=== PATIENT | female | born 1950 | race Hispanic/Latino ===

== ENCOUNTER 2017-03-05 21:47 | Emergency (ER) | payer MEDICARE, BC ==
[2017-03-05 21:48] VITALS: BMI 34.9
[2017-03-05 21:54] VITALS: RESP 20; TEMP 98.3; O2SAT 96
--- NOTE | 2017-03-05 23:05 | C.PDOC ---
History Of Present Illness 67 year old female presents to the ED with complaints of a skin rash appearing today on her legs, arms, and face. Patient states she began Bactrim and denies taking any other new medications, allergens, or exposure to the sun or heat. She states she has taken Bactrim in the past and had no adverse effects. Patient denies any lip swelling , chest tightness or shortness of breath. Took benadryl at home twice today Time Seen by Provider: 03/05/17 22:27 Chief Complaint (Nursing): Abnormal Skin Integrity History Per: Patient History/Exam Limitations: no limitations Onset/Duration Of Symptoms: Hrs Current Symptoms Are (Timing): Still Present Quality Of Symptoms: denies: Painful, Swollen, Draining Recent travel outside of the [place]: No Past Medical History Reviewed: Historical Data, Nursing Documentation, Vital Signs Vital Signs: Last Vital Signs Temp 98.3 F 03/05/17 21:50 Pulse 74 03/05/17 23:06 Resp 20 03/05/17 23:06 BP 124/77 03/05/17 23:06 Pulse Ox 96 03/06/17 06:20 - Medical History PMH: Asthma, COPD, HTN, Hypercholesterolemia, Seizures (LAST SEIZURE 2011) Surgical History: Appendectomy (5 YRS. OLD) - [facility] Procedures CLOSED ENDOSCOPIC BIOPSY OF LARGE INTESTINE (07/31/14) Family History: States: Unknown Family Hx - Social History Hx Tobacco Use: No Hx Alcohol Use: No Hx Substance Use: No - Immunization History Hx Tetanus Toxoid Vaccination: No Hx Influenza Vaccination: No Hx Pneumococcal Vaccination: No Review Of Systems Constitutional: Negative for: Fever, Chills, Sweats Cardiovascular: Negative for: Chest Pain, Palpitations Respiratory: Negative for: Cough, Shortness of Breath Gastrointestinal: Negative for: Nausea, Vomiting, Abdominal Pain, Diarrhea Skin: Positive for: Rash (skin rash to arms, legs, and face ) Physical Exam - Physical Exam Appears: Non-toxic, No Acute Distress Skin: Warm, Dry, No Ecchymosis, Other (Macular erythematus to bilateral lower legs, arms, back, and face. No vesicular lesions. ) Head: Atraumatic Eye(s): bilateral: PERRL, EOMI Oral Mucosa: Moist Tongue: Normal Appearing, No Swelling Lips: Normal Appearing, No Swelling Throat: Normal, No Erythema, No Exudate Neck: Supple Chest: Symmetrical, No Deformity Cardiovascular: Rhythm Regular Respiratory: No Rales, No Rhonchi, No Stridor, No Wheezing Extremity: Normal ROM, No Tenderness Neurological/Psych: Oriented x3 ED Course And Treatment O2 Sat by Pulse Oximetry: 96 (room air ) Progress Note: Patient was given prednisone . Advised to continue with medications at home as instructed and to D/C Bactrim DS. Due to pt's multiple med allergies, pt will call Dr Hernandez on tuesday to prescribe antibiotic for UTI . Disposition Counseled Patient/Family Regarding: Diagnosis, Need For Followup, Rx Given - Disposition Referrals: Shelly Hernandez MD [Staff Provider] - Disposition: HOME/ ROUTINE Disposition Time: 23:03 Condition: STABLE Additional Instructions: Please follow up with PMD D/C BACTRIM Continue benadryl PO as directed Call Dr Hernandez to replace antibiotic as needed Return to ER immediately or call 911 if lip swelling, difficulty breathing, or worse Prescriptions: predniSONE [Prednisone] 40 mg PO DAILY #8 tab Instructions: Antibiotic Medication Allergy (ED) - Clinical Impression Clinical Impression: Medication reaction - Scribe Statement The provider has reviewed the documentation as recorded by the Scribe Claudette Gregory All medical record entries made by the Scribe were at my direction and personally dictated by me. I have reviewed the chart and agree that the record accurately reflects my personal performance of the history, physical exam, medical decision making, and the department course for this patient. I have also personally directed, reviewed, and agree with the discharge instructions and disposition.
[2017-03-05 23:07] VITALS: BP 124/77; PULSE 74
== END 2017-03-05 23:14 | disposition home or self-care (01) ==
LOC: C.ER 21:47
DX: L27.0 Generalized skin eruption due to drugs and medicaments taken internally (principal); T37.0X5A Adverse effect of sulfonamides, initial encounter

== ENCOUNTER 2017-04-07 19:45 | Inpatient (IN) | payer MEDICARE, BC ==
[2017-04-07 19:46] VITALS: BMI 34.9
[2017-04-07 20:52] LABS: ALBUMIN 3.9 g/dL (3.5-5.0)
[2017-04-07 20:54] LABS: BASO # 0.1 K/uL (0.0-0.2); EOS # 0.2 K/uL (0.0-0.7); EOS % 3.5 % (0.0-4.0); HEMOGLOBIN 12.3 g/dL (11.0-16.0); LYMPH # 1.7 K/uL (1.0-4.3); LYMPH % 25.6 % (20.0-40.0); MEAN CORPUSCULAR HEMOGLOBIN 27.2 pg (27.0-31.0); MEAN CORPUSCULAR HGB CONC 33.2 g/dL (33.0-37.0); MONO # 1.1 K/uL (0.0-0.8); MONO % 16.4 % (0.0-10.0); NEUT # 3.5 K/uL (1.8-7.0); NEUT % 53.5 % (50.0-75.0); RBC 4.52 Mil/uL (3.80-5.20); RED CELL DISTRIBUTION WIDTH 14.5 % (11.5-14.5); WHITE BLOOD COUNT 6.5 K/uL (4.8-10.8)
[2017-04-07 20:55] LABS: ALB/GLOB RATIO 1.3 (1.0-2.1); ALT/SGPT 25 U/L (9-52); AST/SGOT 36 U/L (14-36); BLOOD UREA NITROGEN 14 mg/dL (7-17); GFR AFRICAN-AMERICAN > 60; GFR NON-AFRICAN AMERICAN > 60
[2017-04-07 20:56] LABS: CALCIUM 9.7 mg/dl (8.6-10.4); LIPASE 86 U/L (23-300)
--- NOTE | 2017-04-07 21:21 | C.PDOC ---
History Of Present Illness 67 y/o female presents to ED for evaluation of LLQ abdominal pain for the last few days. Notes being seen by PMD and was prescribed carafate which gave no relief of symptoms. Otherwise, denies any fever, or any other complaints at this time. Time Seen by Provider: 04/07/17 20:44 Chief Complaint (Nursing): Abdominal Pain History Per: Patient History/Exam Limitations: no limitations Onset/Duration Of Symptoms: Days Current Symptoms Are (Timing): Still Present Location Of Pain/Discomfort: LLQ Radiation Of Pain To:: None Quality Of Discomfort: "Pain" Associated Symptoms: denies: Fever, Chills, Nausea, Vomiting, Diarrhea, Loss Of Appetite, Back Pain, Chest Pain, Constipation, Urinary Symptoms Exacerbating Factors: None Alleviating Factors: None Recent travel outside of the [place]: No Additional History Per: Patient Abnormal Vaginal Bleeding: No Past Medical History Reviewed: Historical Data, Nursing Documentation, Vital Signs Vital Signs: Last Vital Signs Temp 97.6 F 04/08/17 00:10 Pulse 68 04/08/17 00:10 Resp 18 04/08/17 00:10 BP 128/90 04/08/17 00:10 Pulse Ox 95 04/08/17 00:16 - Medical History PMH: Asthma, COPD, HTN, Hypercholesterolemia, Seizures (LAST SEIZURE 2011) Denies: Chronic Kidney Disease Surgical History: Appendectomy (5 YRS. OLD) - [facility] Procedures CLOSED ENDOSCOPIC BIOPSY OF LARGE INTESTINE (07/31/14) Family History: States: Unknown Family Hx - Social History Hx Tobacco Use: No Hx Alcohol Use: No Hx Substance Use: No - Immunization History Hx Tetanus Toxoid Vaccination: No Hx Influenza Vaccination: No Hx Pneumococcal Vaccination: No Review Of Systems Except As Marked, All Systems Reviewed And Found Negative. Constitutional: Negative for: Fever, Chills Gastrointestinal: Positive for: Abdominal Pain (LLQ). Negative for: Nausea, Vomiting, Diarrhea Genitourinary: Negative for: Dysuria, Frequency, Hematuria Musculoskeletal: Negative for: Back Pain Physical Exam - Physical Exam Appears: Non-toxic, No Acute Distress, Other (obese) Skin: Normal Color, Warm, Dry Head: Atraumatic, Normacephalic Eye(s): bilateral: Normal Inspection, EOMI Neck: Normal ROM, Supple Chest: Symmetrical, No Tenderness Cardiovascular: Rhythm Regular, No Murmur Respiratory: Normal Breath Sounds, No Rales, No Rhonchi, No Wheezing Gastrointestinal/Abdominal: Soft, Tenderness (LLQ), No Guarding, No Rebound Rectal: Normal Exam, Heme Negative Pelvic: Normal External Exam, Normal Speculum Exam, No Vaginal Bleeding, No Vaginal Discharge, No Cervical Motion Tenderness, No Adnexal Tenderness Extremity: Normal ROM, No Deformity Neurological/Psych: Oriented x3, Normal Speech, Normal Cognition ED Course And Treatment - Laboratory Results Result Diagrams: 04/07/17 20:39 04/07/17 20:39 O2 Sat by Pulse Oximetry: 95 (on RA) Pulse Ox Interpretation: Normal - CT Scan/US CT abd/pel Other Rad Studies (CT/US): Read By Radiologist, Radiology Report Reviewed CT/US Interpretation: EXAM: CT Abdomen and Pelvis Without Intravenous Contrast. CLINICAL HISTORY: 67 years old, female; Pain; Abdominal pain; Localized; Left lower quadrant (llq); Prior surgery;. Surgery date: 6+ months; Surgery type: Appendix/partial hysterectomy; Additional info: Llq pain and. anal pain. TECHNIQUE: Axial computed tomography images of the abdomen and pelvis without intravenous contrast. This. CT exam was performed using one or more of the following dose reduction techniques: automated. exposure control, adjustment of the mA and/or kV according to patient size, and/or use of iterative. reconstruction technique. Coronal and sagittal reformatted images were created and reviewed. COMPARISON: Prior CT 07/19/2014. FINDINGS: Partial visualization of approximately 2 mm nodule in the right lower lobe visualized on the 1st image. on this study. Additional 2 mm nodule in the right lower lobe on image 2. Atelectasis/scarring. Evidence of air trapping at lung bases. Again noted is a low density lesion in the right lobe of the liver measuring approximately 7 cm in. maximal dimension. Additional subcentimeter low-attenuation lesion noted inferior to this. Gallstone in the gallbladder. Evidence of subcentimeter hypoattenuating nodule in the left adrenal gland. The spleen, pancreas and right adrenal gland demonstrate no acute abnormalities. The kidneys are symmetric with no evidence of hydronephrosis. Please note evaluation for underlying visceral lesions/abnormalities limited without intravenous. contrast. The aorta is normal in caliber. Evaluation of bowel limited without enteric contrast, particularly for bowel inflammation or underlying. lesion. No bowel obstruction. Colonic diverticula. No ascites. No free air. Degenerative changes, most notable at L5-S1. IMPRESSION: Colonic diverticula. Evaluation of bowel limited without enteric contrast. Question slight increased. mesenteric markings adjacent to colonic diverticulum in the rectosigmoid region, axial image 66,. cannot exclude mild diverticulitis. Partial visualization of approximately 2 mm nodule in the right lower lobe visualized on the 1st image. on this study. Additional 2 mm nodule in the right lower lobe on image 2. Again noted is a low density lesion in the right lobe of the liver measuring approximately 7 cm in. maximal dimension, 2015 study not available for comparison at time of report. Additional. subcentimeter low-attenuation lesion noted inferior to this, unchanged from 2014. Please correlate. with prior imaging diagnosis. Prior reports have recommended followup MRI/ultrasound. Gallstone in the gallbladder without CT evidence of acute cholecystitis. Evidence of subcentimeter hypoattenuating nodule in the left adrenal gland, unchanged from prior. study in 2014. Please see additional details/findings as above. Correlate clinically. Followup as warranted. Progress Note: Labs, abd & pelvis CT ordered and reviewed. Medical Decision Making Medical Decision Making: abd pain r/o diverticulitis, gastritis, colitis 1112: pt initally comfortable with dc. updated dr duncan for outpt f/u. upon reassessment., pt reports persistnet nausea, abdominal discomfort. also pt with multiple drug allergies, will need iv antibiotics, as allergies to quinolones and bactrim, pcn, flagyl. . case discussed with hospitalist. accepts for admission. Disposition - Disposition Disposition: HOSPITALIZED Disposition Time: 23:13 Condition: STABLE - Clinical Impression Clinical Impression: Diverticulitis - Scribe Statement The provider has reviewed the documentation as recorded by the Tracey Hernandez All medical record entries made by the Tracey were at my direction and personally dictated by me. I have reviewed the chart and agree that the record accurately reflects my personal performance of the history, physical exam, medical decision making, and the department course for this patient. I have also personally directed, reviewed, and agree with the discharge instructions and disposition. Decision To Admit - Pt Status Changed To: Hospital Disposition Of: Inpatient - Admit Certification Admit to Inpatient:: After my assessment, the patient will require hospitalization for at least two midnights. This is because of the severity of symptoms shown, intensity of services needed, and/or the medical risk in this patient being treated as an outpatient. - InPatient: Physician Admission Certification:: multiple drug allergies, needs iv antibitoics, as not sensitive to po antibiotics - . Bed Request Type: Regular Admitting Physician: Jimmie Brush Patient Diagnosis: Diverticulitis
--- NOTE | 2017-04-07 22:29 | CT ---
EXAM: CT Abdomen and Pelvis Without Intravenous Contrast CLINICAL HISTORY: 67 years old, female; Pain; Abdominal pain; Localized; Left lower quadrant (llq); Prior surgery; Surgery date: 6+ months; Surgery type: Appendix/partial hysterectomy; Additional info: Llq pain and anal pain TECHNIQUE: Axial computed tomography images of the abdomen and pelvis without intravenous contrast. This CT exam was performed using one or more of the following dose reduction techniques: automated exposure control, adjustment of the mA and/or kV according to patient size, and/or use of iterative reconstruction technique. Coronal and sagittal reformatted images were created and reviewed. COMPARISON: Prior CT 07/19/2014. FINDINGS: Partial visualization of approximately 2 mm nodule in the right lower lobe visualized on the 1st image on this study. Additional 2 mm nodule in the right lower lobe on image 2. Atelectasis/scarring. Evidence of air trapping at lung bases. Again noted is a low density lesion in the right lobe of the liver measuring approximately 7 cm in maximal dimension. Additional subcentimeter low-attenuation lesion noted inferior to this. Gallstone in the gallbladder. Evidence of subcentimeter hypoattenuating nodule in the left adrenal gland. The spleen, pancreas and right adrenal gland demonstrate no acute abnormalities. The kidneys are symmetric with no evidence of hydronephrosis. Please note evaluation for underlying visceral lesions/abnormalities limited without intravenous contrast. The aorta is normal in caliber. Evaluation of bowel limited without enteric contrast, particularly for bowel inflammation or underlying lesion. No bowel obstruction. Colonic diverticula. No ascites. No free air. Degenerative changes, most notable at L5-S1. IMPRESSION: Colonic diverticula. Evaluation of bowel limited without enteric contrast. Question slight increased mesenteric markings adjacent to colonic diverticulum in the rectosigmoid region, axial image 66, cannot exclude mild diverticulitis. Partial visualization of approximately 2 mm nodule in the right lower lobe visualized on the 1st image on this study. Additional 2 mm nodule in the right lower lobe on image 2. Again noted is a low density lesion in the right lobe of the liver measuring approximately 7 cm in maximal dimension, 2015 study not available for comparison at time of report. Additional subcentimeter low-attenuation lesion noted inferior to this, unchanged from 2013. Please correlate with prior imaging diagnosis. Prior reports have recommended followup MRI/ultrasound. Gallstone in the gallbladder without CT evidence of acute cholecystitis. Evidence of subcentimeter hypoattenuating nodule in the left adrenal gland, unchanged from prior study in 2014. Please see additional details/findings as above. Correlate clinically. Followup as warranted.
[2017-04-07] MEDS ORDERED: Clindamycin 600mg/50ml D5W 600 MG/50 ML VIAL IVPB ONE ×2 (23:00→23:06)
[2017-04-07] MEDS ORDERED: Aztreonam 2 GM in Sodium Chloride 0.9% 100 ML IVPB STA (23:08)
--- NOTE | 2017-04-07 23:21 | CP.PCM.HP ---
<Sobeida Gibbons - Last Filed: 04/08/17 03:28> History of Present Illness - History of Present Illness History of Present Illness: Medicine Note CC: abdominal pain HPI: 67 F with PMHx of HTN, Hypothyroidism, Seizure Disorder, HLD, COPD, GERD, and Hemangioma who presents to the ED with abdominal pain x 3 days. Patient reports the pain is localized to LLQ and does not radiate. She started to have diarrhea and abdominal pain after eating. She saw Dr. Loza in his office for these symptoms and he gave her carafate which did not relieve these symptoms. She also admitted to dysuria and suprapubic tenderness. Denied any associated fever, chills, chest pain, SOB, or n/v/c. PMHx: HTN, Hypothyroidism, HLD, Seizure Disorder, COPD, GERD, Hemangioma PSHx: Hysterectomy, implanted lens in both eyes Meds: As per DEC All: As noted above SHx: Stopped smoking 30 years ago, denied any alcohol or illicit drug use FHx: Unremarkble PMD: Dr. Hernandez GI: Dago Present on Admission - Present on Admission Any Indicators Present on Admission: No Review of Systems - Constitutional Constitutional: absent: Fever, Headache, Weakness - EENT Eyes: absent: Change in Vision, Loss of Vision Ears: absent: Tinnitus Nose/Mouth/Throat: absent: Dysphagia - Breasts Breasts: absent: Pain - Cardiovascular Cardiovascular: absent: Chest Pain, Chest Pain at Rest - Respiratory Respiratory: absent: Cough, Dyspnea - Gastrointestinal Gastrointestinal: Abdominal Pain, Diarrhea. absent: Nausea, Vomiting - Genitourinary Genitourinary: Dysuria. absent: Hematuria - Musculoskeletal Musculoskeletal: absent: Back Pain - Integumentary Integumentary: absent: Wounds - Neurological Neurological: absent: Syncope, Vertigo, Weakness - Psychiatric Psychiatric: absent: Anxiety - Hematologic/Lymphatic Hematologic: absent: Easy Bleeding, Easy Bruising Past Patient History - Infectious Disease Hx of Infectious Diseases: None - Past Medical History & Family History Past Medical History?: Yes - Past Social History Smoking Status: Former Smoker - CARDIAC Hx Hypercholesterolemia: Yes Hx Hypertension: Yes - PULMONARY Hx Asthma: Yes Hx Chronic Obstructive Pulmonary Disease (COPD): Yes - NEUROLOGICAL Hx Seizures: Yes (LAST SEIZURE 2011) - HEENT Hx HEENT Problems: No Other/Comment: implanted LENS to both eyes - RENAL Hx Chronic Kidney Disease: No - ENDOCRINE/METABOLIC Hx Endocrine Disorders: No - HEMATOLOGICAL/ONCOLOGICAL Hx Blood Disorders: No Other/Comment: mass to right side of liver - INTEGUMENTARY Hx Dermatological Problems: No - MUSCULOSKELETAL/RHEUMATOLOGICAL Hx Musculoskeletal Disorders: Yes - GASTROINTESTINAL Hx Gastrointestinal Disorders: Yes Hx Fatty Liver Disease: Yes ( RIGHT LOBE LIVER HEMANGIOMA) Hx Gastroesophageal Reflux: Yes Other/Comment: hepatic hemangioma right lobe - GENITOURINARY/GYNECOLOGICAL Hx Genitourinary Disorders: No - PSYCHIATRIC Hx Substance Use: No - SURGICAL HISTORY Hx Appendectomy: Yes (3 YRS. OLD) - ANESTHESIA Hx Anesthesia: Yes Hx Anesthesia Reactions: No Hx Malignant Hyperthermia: No Meds Allergies/Adverse Reactions: Allergies Allergy/AdvReac Type Severity Reaction Status Date / Time amoxicillin [From Augmentin] Allergy Verified 04/07/17 20:36 ciprofloxacin [From Cipro] Allergy Verified 04/07/17 20:36 clavulanic acid Allergy Verified 04/07/17 20:36 [From Augmentin] iodine Allergy Verified 04/07/17 20:36 levofloxacin [From Levaquin] Allergy Verified 04/07/17 20:36 metronidazole [From Flagyl] Allergy Verified 04/07/17 20:36 sulfamethoxazole Allergy Verified 04/07/17 20:36 [From Bactrim] theophylline Allergy Verified 04/07/17 20:36 trimethoprim [From Bactrim] Allergy Verified 04/07/17 20:36 Physical Exam - Constitutional Appears: No Acute Distress - Head Exam Head Exam: NORMAL INSPECTION, NORMOCEPHALIC - Eye Exam Eye Exam: Normal appearance Pupil Exam: NORMAL ACCOMODATION - ENT Exam ENT Exam: Mucous Membranes Moist, Normal Exam - Respiratory Exam Respiratory Exam: Clear to Auscultation Bilateral, NORMAL BREATHING PATTERN. absent: Wheezes - Cardiovascular Exam Cardiovascular Exam: REGULAR RHYTHM, RRR - GI/Abdominal Exam GI & Abdominal Exam: Normal Bowel Sounds, Soft, Tenderness (LLQ, suprapubic TTP) . absent: Organomegaly - Extremities Exam Extremities exam: Positive for: normal inspection, pedal pulses present. Negative for: pedal edema, tenderness - Back Exam Back exam: NORMAL INSPECTION. absent: CVA tenderness (L), CVA tenderness (R) - Neurological Exam Neurological exam: Alert, CN II-XII Intact, Oriented x3 - Psychiatric Exam Psychiatric exam: Normal Affect, Normal Mood - Skin Skin Exam: Dry, Intact, Normal Color, Warm Results - Vital Signs Recent Vital Signs: Last Vital Signs Temp 98.1 F 04/07/17 20:15 Pulse 90 04/07/17 20:15 Resp 20 04/07/17 20:15 BP 142/73 04/07/17 20:15 Pulse Ox 95 04/07/17 23:13 - Labs Result Diagrams: 04/07/17 20:39 04/07/17 20:39 Labs: Laboratory Results - last 24 hr 04/07/17 04/07/17 20:39 20:39 WBC 6.5 RBC 4.52 Hgb 12.3 Hct 37.1 MCV 82.0 MCH 27.2 MCHC 33.2 RDW 14.5 Plt Count 291 MPV 8.0 Neut % (Auto) 53.5 Lymph % (Auto) 25.6 Custer % (Auto) 16.4 H Eos % (Auto) 3.5 Baso % (Auto) 1.0 Neut # 3.5 Lymph # 1.7 Custer # 1.1 H Eos # 0.2 Baso # 0.1 Sodium 133 Potassium 3.8 Chloride 97 L Carbon Dioxide 26 Anion Gap 13 BUN 14 Creatinine 0.8 Est GFR ( Amer) > 60 Est GFR (Non-Af Amer) > 60 Random Glucose 81 Calcium 9.7 Total Bilirubin 1.3 AST 36 ALT 25 Alkaline Phosphatase 78 Total Protein 6.8 Albumin 3.9 Globulin 2.9 Albumin/Globulin Ratio 1.3 Lipase 86 Assessment & Plan - Assessment and Plan (Free Text) Assessment: 67 F with PMHx of HTN, Hypothyroidism, HLD, COPD, Seizure Disorder, GERD, and Hemangioma who presents to the ED with abdominal pain x 3 days. Plan: Diverticulitis * Afebrile, no leukocytosis, vitals stable * NPO, IVF * Started 04/07/17 on Clindamycin 300 Q8H and Aztreonam 2gm Q8H (due to multiple allergies) * CT AB & P w/o IV contrast: Colonic diverticula. Evaluation of bowel limited without enteric contrast. Question slight increased. mesenteric markings adjacent to colonic diverticulum in the rectosigmoid region, axial image 66,. cannot exclude mild diverticulitis. Partial visualization of approximately 2 mm nodule in the right lower lobe visualized on the 1st image. on this study. Additional 2 mm nodule in the right lower lobe on image 2. Again noted is a low density lesion in the right lobe of the liver measuring approximately 7 cm in. maximal dimension, 2015 study not available for comparison at time of report. Additional. subcentimeter low-attenuation lesion noted inferior to this , unchanged from 2014. Please correlate. with prior imaging diagnosis. Prior reports have recommended followup MRI/ultrasound. Gallstone in the gallbladder without CT evidence of acute cholecystitis. Evidence of subcentimeter hypoattenuating nodule in the left adrenal gland, unchanged from prior. study in 2013. Please see additional details/findings as above. Correlate clinically. Followup as warranted. * GI consult- Dr. Loza - help appreciated UTI * UA: + nitrate, + LE * Started 04/07/17 on Clindamycin 300 Q8H and Aztreonam 2gm Q8H (due to multiple allergies) * F/U Urine culture HTN * Resumed home medications: Avalide 1 tab po daily * HHD Hypothyroidism * Resumed home medications: Synthroid 112 mcg PO daily HLD * Resumed home medications: Crestor 5 mg PO QHS COPD * Resumed home medications: Duoneb PRN, Singulair 10mg PO QHS, Advair diskus, Seizure Disorder * Resumed home medications: Keppra 1250mg PO BID, Lyrica 75mg PO BID GERD * Protonix 40mg IVP daily Hx of Hemangioma * Routinely monitored Prophylactic Measures * GI PPX: Protonix 40mg IVP daily * DVT PPX: SCDs, Lovenox 40mg SC daily DW Shai Burnette DO, PGY-1 <Jimmie Brush - Last Filed: 04/08/17 05:14> Results - Vital Signs Recent Vital Signs: Last Vital Signs Temp 97.6 F 04/08/17 01:16 Pulse 69 04/08/17 01:16 Resp 20 04/08/17 02:24 BP 119/74 04/08/17 01:16 Pulse Ox 96 04/08/17 01:16 - Labs Result Diagrams: 04/07/17 20:39 04/07/17 20:39 Assessment & Plan - Date & Time Date: 04/08/17 (I have seen and examined the patient. I agree with the findings and plan of care as documented by Dr. Gibbons. Patient with diverticulitis. Also with UTI. Clinda and Aztreonam due to multiple allergies. GI consult. Monitor for acute changes.) Time: 05:13 Attending/Attestation - Attestation I have personally seen and examined this patient.: Yes I have fully participated in the care of the patient.: Yes I have reviewed all pertinent clinical information: Yes
[2017-04-07 23:39] LABS: SQUAMOUS EPITHIAL 7 /hpf (0-5); URINE BACTERIA RARE (<OCC); URINE BILIRUBIN NEGATIVE (NEGATIVE); URINE BLOOD 1+ (NEGATIVE); URINE CLARITY Clear (Clear); URINE COLOR Amber (YELLOW); URINE GLUCOSE (UA) NORMAL (Normal); URINE LEUKOCYTE ESTERASE 3+ Leu/uL (Negative); URINE NITRATE POSITIVE (NEGATIVE); URINE PROTEIN NEGATIVE (NEGATIVE); URINE UROBILINOGEN NORMAL mg/dL (0.2-1.0)
[2017-04-08] MEDS: Dextrose 5%/0.9% NS 1,000 ML IV SCH ×3 (00:22→20:46)
[2017-04-08] MEDS ORDERED: Albuterol-Ipratrop 3 mg / 0.5 (3 ml) UD INH PRN (03:17)
[2017-04-08] MEDS ORDERED: Simethicone 40 mg/0.6 ml Liquid (30 ml) PO STA (03:24)
[2017-04-08] MEDS ORDERED: Simethicone 80 mg Chewtab PO STA (03:33)
[2017-04-08] MEDS ORDERED: Sodium Chloride 0.9% 1,000 ML IV SCH (03:45)
[2017-04-08 03:54] VITALS: RESP 20
[2017-04-08] MEDS: Levothyroxine 112 MCG TAB PO SCH (06:14)
[2017-04-08 07:45] LABS: BASO # 0.1 K/uL (0.0-0.2); EOS # 0.3 K/uL (0.0-0.7); EOS % 5.8 % (0.0-4.0); HEMOGLOBIN 11.7 g/dL (11.0-16.0); LYMPH # 1.9 K/uL (1.0-4.3); LYMPH % 34.1 % (20.0-40.0); MEAN CELL VOLUME 81.4 fL (81.0-99.0); MEAN CORPUSCULAR HEMOGLOBIN 27.5 pg (27.0-31.0); MEAN CORPUSCULAR HGB CONC 33.8 g/dL (33.0-37.0); MONO # 0.9 K/uL (0.0-0.8); MONO % 15.3 % (0.0-10.0); NEUT # 2.5 K/uL (1.8-7.0); NEUT % 43.8 % (50.0-75.0); NRBC % 0.1 % (0.0-2.0); RBC 4.24 Mil/uL (3.80-5.20); RED CELL DISTRIBUTION WIDTH 14.5 % (11.5-14.5); WHITE BLOOD COUNT 5.6 K/uL (4.8-10.8)
[2017-04-08 08:02] LABS: ALBUMIN 3.4 g/dL (3.5-5.0)
[2017-04-08 08:05] LABS: GFR AFRICAN-AMERICAN > 60; GFR NON-AFRICAN AMERICAN > 60
[2017-04-08 08:06] LABS: ALB/GLOB RATIO 1.4 (1.0-2.1); ALT/SGPT 24 U/L (9-52); AST/SGOT 30 U/L (14-36); BLOOD UREA NITROGEN 12 mg/dL (7-17); CALCIUM 9.4 mg/dl (8.6-10.4)
[2017-04-08 08:07] LABS: MAGNESIUM 1.8 mg/dL (1.6-2.3)
[2017-04-08] MEDS: Clindamycin 300 MG in Sodium Chloride 0.9% 50 ML IVPB SCH ×3 (08:45→20:00)
[2017-04-08] MEDS ORDERED: Fluticasone-Salmeterol 500-50mcg Diskus IH SCH (10:00)
[2017-04-08] MEDS: Enoxaparin 40 mg Syringe SC SCH (10:20)
[2017-04-08] MEDS: Aztreonam 2 GM in Sodium Chloride 0.9% 100 ML IVPB SCH ×2 (10:21→17:25)
[2017-04-08] MEDS: Pantoprazole 40 mg EC Tab PO SCH (10:55)
--- NOTE | 2017-04-08 13:10 | CP.PCM.CON ---
History of Present Illness - History of Present Illness History of Present Illness: 67 yo female well known to me with h/o PPI dependent GERD/esophagitis, diverticulosis and polyps was seen last week c/o intractable heartburn and epigastric pain. She was given Carafate for this and had some lower abdominal vague symptoms associated with alternationg of constipation and diarrhea. Her exam was benign at that time. Pt admitted via ER last night after telling me they were sending her home around 11 pm for oral antibiotics for mild diverticulitis seen on CT in LLQ. Patient had two day h/o of worsening LLQ pain and became constipated yesterday after having loose stools on tuesday. No fever, chills, nausea or vomiting and no bleeding or melena. Asked to see for possible colonoscopy in discussion with Dr Rodrigues. Review of Systems - Cardiovascular Cardiovascular: Dyspnea on Exertion - Respiratory Respiratory: Cough - Gastrointestinal Gastrointestinal: As Per HPI, Abdominal Pain, Bloating, Change in Bowel Habits, Change in Stool Character, Heartburn - Genitourinary Genitourinary: Dysuria, Urinary Frequency, Freq UTI Additional comments: under care of Dr Melo recently Past Patient History - Infectious Disease Hx of Infectious Diseases: None - Past Medical History & Family History Past Medical History?: Yes - Past Social History Smoking Status: Former Smoker - CARDIAC Hx Hypercholesterolemia: Yes Hx Hypertension: Yes - PULMONARY Hx Asthma: Yes Hx Chronic Obstructive Pulmonary Disease (COPD): Yes - NEUROLOGICAL Hx Seizures: Yes (LAST SEIZURE 2011) - HEENT Hx HEENT Problems: No Other/Comment: implanted LENS to both eyes - RENAL Hx Chronic Kidney Disease: No - ENDOCRINE/METABOLIC Hx Endocrine Disorders: No - HEMATOLOGICAL/ONCOLOGICAL Hx Blood Disorders: No Hx Cirrhosis: No Hx Hepatitis A: No Hx Hepatitis B: No Hx Hepatitis C: No Hx Human Immunodeficiency Virus (HIV): No Other/Comment: mass to right side of liver - INTEGUMENTARY Hx Dermatological Problems: No - MUSCULOSKELETAL/RHEUMATOLOGICAL Hx Musculoskeletal Disorders: Yes - GASTROINTESTINAL Hx Gastrointestinal Disorders: Yes Hx Bowel Surgery: No Hx Clostridium Difficile: No Hx Colitis: No Hx Colostomy: No Hx Diverticulitis: Yes (Diverticulosis) Hx Fatty Liver Disease: Yes ( RIGHT LOBE LIVER HEMANGIOMA) Hx Gastritis: Yes Hx Gastroesophageal Reflux: Yes Hx Hemorrhoids: Yes Hx Ileostomy: No Hx Irritable Bowel: No Hx Liver Failure: No Hx Nausea: No Hx Pancreatitis: No HX Swallowing Problems: No Hx Ulcer: No Hx Vomiting: No Other/Comment: hepatic hemangioma right lobe. h/o colon polyps - GENITOURINARY/GYNECOLOGICAL Hx Genitourinary Disorders: No - PSYCHIATRIC Hx Substance Use: No - SURGICAL HISTORY Hx Appendectomy: Yes (5 YRS. OLD) - ANESTHESIA Hx Anesthesia: Yes Hx Anesthesia Reactions: No Hx Malignant Hyperthermia: No Meds Allergies/Adverse Reactions: Allergies Allergy/AdvReac Type Severity Reaction Status Date / Time amoxicillin [From Augmentin] Allergy Verified 04/07/17 20:36 ciprofloxacin [From Cipro] Allergy Verified 04/07/17 20:36 clavulanic acid Allergy Verified 04/07/17 20:36 [From Augmentin] iodine Allergy Verified 04/07/17 20:36 levofloxacin [From Levaquin] Allergy Verified 04/07/17 20:36 metronidazole [From Flagyl] Allergy Verified 04/07/17 20:36 sulfamethoxazole Allergy Verified 04/07/17 20:36 [From Bactrim] theophylline Allergy Verified 04/07/17 20:36 trimethoprim [From Bactrim] Allergy Verified 04/07/17 20:36 - Medications Medications: Current Medications Acetaminophen (Tylenol 325mg Tab) 650 mg PO Q6 PRN PRN Reason: Fever >100.4 F Acetaminophen (Tylenol 325mg Tab) 650 mg PO Q6 PRN PRN Reason: Pain, Mild (1-3) Albuterol/Ipratropium (Duoneb 3 Mg/0.5 Mg (3 Ml) Ud) 3 ml INH RQ6 PRN PRN Reason: Shortness of Breath Aspirin (Aspirin) 325 mg PO DAILY [facility] Last Admin: 04/08/17 10:20 Dose: 325 mg Enoxaparin Sodium (Lovenox) 40 mg SC DAILY [facility] Last Admin: 04/08/17 10:20 Dose: 40 mg Home Med (Avalide 25 Mg-300 Mg) 1 tab PO DAILY [facility] Dextrose/Sodium Chloride (Dextrose 5%/0.9% Ns 1000 Ml) 1,000 mls @ 100 mls/hr IV .Q10H [facility] Last Admin: 04/08/17 10:21 Dose: Not Given Aztreonam 2 gm/ Sodium (Chloride) 100 mls @ 200 mls/hr IVPB Q8H [facility] Last Admin: 04/08/17 10:21 Dose: 200 mls/hr Clindamycin Phosphate 300 mg/ (Sodium Chloride) 52 mls @ 104 mls/hr IVPB Q6H [facility] Last Admin: 04/08/17 08:45 Dose: 104 mls/hr Ketorolac Tromethamine (Toradol) 30 mg IVP Q6 PRN PRN Reason: Pain, moderate (4-7) Levetiracetam (Keppra) 1,000 mg PO BID [facility] Last Admin: 04/08/17 10:55 Dose: 1,000 mg Levetiracetam (Keppra) 250 mg PO BID [facility] Last Admin: 04/08/17 10:55 Dose: 250 mg Levothyroxine Sodium (Synthroid) 112 mcg PO DAILY@0630 [facility] Last Admin: 04/08/17 06:14 Dose: 112 mcg Montelukast Sodium (Singulair) 10 mg PO HS [facility] Ondansetron HCl (Zofran Inj) 4 mg IVP Q6H PRN PRN Reason: Nausea/Vomiting Pantoprazole Sodium (Protonix Ec Tab) 40 mg PO DAILY [facility] Last Admin: 04/08/17 10:55 Dose: 40 mg Pregabalin (Lyrica) 75 mg PO BID [facility] Last Admin: 04/08/17 10:20 Dose: 75 mg Rosuvastatin Calcium (Crestor) 5 mg PO HS [facility] Fluticasone/Salmeterol (Advair Diskus 500/50) 1 puff IH DAILY [facility] Zolpidem Tartrate (Ambien) 5 mg PO [facility] Physical Exam - Constitutional Appears: No Acute Distress - Head Exam Head Exam: ATRAUMATIC, NORMOCEPHALIC - Eye Exam Eye Exam: EOMI, PERRL - Respiratory Exam Respiratory Exam: NORMAL BREATHING PATTERN - Cardiovascular Exam Cardiovascular Exam: REGULAR RHYTHM, +S1 - GI/Abdominal Exam GI & Abdominal Exam: Guarding, Normal Bowel Sounds, Soft, Tenderness. absent: Mass, Organomegaly, Rebound, Rigid - Rectal Exam Rectal Exam: Deferred - Extremities Exam Extremities exam: Positive for: pedal edema. Negative for: calf tenderness, tenderness - Neurological Exam Neurological exam: Alert, Oriented x3 - Psychiatric Exam Psychiatric exam: Anxious, Normal Affect - Skin Skin Exam: Dry, Warm Results - Vital Signs Recent Vital Signs: Last Vital Signs Temp 97.5 F L 04/08/17 08:00 Pulse 64 04/08/17 08:00 Resp 20 04/08/17 08:00 BP 111/68 04/08/17 08:00 Pulse Ox 96 04/08/17 08:00 - Labs Result Diagrams: 04/08/17 07:31 04/08/17 07:31 Labs: Laboratory Results - last 24 hr 04/08/17 04/08/17 07:31 07:31 WBC 5.6 RBC 4.24 Hgb 11.7 Hct 34.5 MCV 81.4 MCH 27.5 MCHC 33.8 RDW 14.5 Plt Count 247 MPV 8.0 Neut % (Auto) 43.8 L Lymph % (Auto) 34.1 Davidson % (Auto) 15.3 H Eos % (Auto) 5.8 H Baso % (Auto) 1.0 Neut # 2.5 Lymph # 1.9 Davidson # 0.9 H Eos # 0.3 Baso # 0.1 Sodium 133 Potassium 2.9 L Chloride 97 L Carbon Dioxide 27 Anion Gap 12 BUN 12 Creatinine 0.7 Est GFR ( Amer) > 60 Est GFR (Non-Af Amer) > 60 Random Glucose 97 Calcium 9.4 Phosphorus 3.2 Magnesium 1.8 Total Bilirubin 1.3 AST 30 ALT 24 Alkaline Phosphatase 79 Total Protein 5.9 L Albumin 3.4 L Globulin 2.5 Albumin/Globulin Ratio 1.4 Assessment & Plan (1) GERD (gastroesophageal reflux disease) Assessment and Plan: Continue PPI and Carafate as needed. Has had EGD done more recently. Records not available to view before next week. (tuesday) Status: Acute (2) LLQ pain Assessment and Plan: Pain appears to be related to diverticulitis seen on CT Scan Treatment as discussed with ER last night Status: Acute (3) H/O adenomatous polyp of colon Assessment and Plan: Colonoscopy due once diverticulitis has resolved Status: Chronic (4) Diverticulitis Assessment and Plan: Patient is feeling better after starting with IV antibiotics. Has multiple medical alleregies and reactions. Would treat for 10-14 days and then plan colonoscopy which was due in 8-12 weeks. Advance diet when pain has improved and exam is benign. Status: Acute (5) Recurrent UTI Assessment and Plan: Culture of urine with C and S Urology follow up advised for source of recurrent infection in recent weeks. Doubt colo-vesicle fistula based on symptoms. Status: Acute
[2017-04-08] MEDS ORDERED: Potassium Chloride 20 mEq/15 ml LIQ UD PO ONE (17:04)
--- NOTE | 2017-04-08 18:45 | US ---
PROCEDURE: Ultrasound of the Kidneys HISTORY: uti; pyelonephritis COMPARISON: None available. TECHNIQUE: Sonogram of the kidneys. FINDINGS: RIGHT KIDNEY: Measures: 11.7 cm. Normal in size, contour and echogenicity. No stone, solid mass lesion or hydronephrosis visualized. LEFT KIDNEY: Measures: 11.2 cm. Normal size and echogenicity. Mildly lobulated contour, likely developmental. No stone, solid mass lesion or hydronephrosis visualized. OTHER FINDINGS: None. IMPRESSION: No evidence of urinary tract obstruction. Unremarkable examination.
--- NOTE | 2017-04-08 20:59 | CP.PCM.PN ---
<NattyRambo R - Last Filed: 04/08/17 20:41> Subjective - Date & Time of Evaluation Date of Evaluation: 04/08/17 Time of Evaluation: 12:15 - Subjective Subjective: Patient was seen and examined at bedside. She said she had a "burning pain" in the LLQ and RLQ which she rated a 7/10. She says the pain is most felt after eating or drinking. She also complains of urinary frequency and dysuria. She denies chest pain, shortness of breath, headache, vomiting, diarrhea, fever. Objective - Vital Signs/Intake and Output Vital Signs (last 24 hours): Temp Pulse Resp BP Pulse Ox 99.0 F 60 20 119/77 96 04/08/17 15:00 04/08/17 15:00 04/08/17 15:00 04/08/17 15:00 04/08/17 15:00 Intake and Output: 04/08/17 04/09/17 18:59 06:59 Intake Total 800 Balance 800 - Medications Medications: Current Medications Acetaminophen (Tylenol 325mg Tab) 650 mg PO Q6 PRN PRN Reason: Fever >100.4 F Acetaminophen (Tylenol 325mg Tab) 650 mg PO Q6 PRN PRN Reason: Pain, Mild (1-3) Albuterol/Ipratropium (Duoneb 3 Mg/0.5 Mg (3 Ml) Ud) 3 ml INH RQ6 PRN PRN Reason: Shortness of Breath Aspirin (Aspirin) 325 mg PO DAILY [facility] Last Admin: 04/08/17 10:20 Dose: 325 mg Enoxaparin Sodium (Lovenox) 40 mg SC DAILY [facility] Last Admin: 04/08/17 10:20 Dose: 40 mg Hydrochlorothiazide (Hydrodiuril) 25 mg PO DAILY [facility] Dextrose/Sodium Chloride (Dextrose 5%/0.9% Ns 1000 Ml) 1,000 mls @ 100 mls/hr IV .Q10H [facility] Last Admin: 04/08/17 10:21 Dose: Not Given Aztreonam 2 gm/ Sodium (Chloride) 100 mls @ 200 mls/hr IVPB Q8H [facility] Last Admin: 04/08/17 17:25 Dose: 200 mls/hr Clindamycin Phosphate 300 mg/ (Sodium Chloride) 52 mls @ 104 mls/hr IVPB Q6H [facility] Last Admin: 04/08/17 14:18 Dose: 104 mls/hr Ketorolac Tromethamine (Toradol) 30 mg IVP Q6 PRN PRN Reason: Pain, moderate (4-7) Levetiracetam (Keppra) 1,000 mg PO BID [facility] Last Admin: 04/08/17 10:55 Dose: 1,000 mg Levetiracetam (Keppra) 250 mg PO BID [facility] Last Admin: 04/08/17 10:55 Dose: 250 mg Levothyroxine Sodium (Synthroid) 112 mcg PO DAILY@0630 [facility] Last Admin: 04/08/17 06:14 Dose: 112 mcg Losartan Potassium (Cozaar) 100 mg PO DAILY [facility] Montelukast Sodium (Singulair) 10 mg PO HS [facility] Ondansetron HCl (Zofran Inj) 4 mg IVP Q6H PRN PRN Reason: Nausea/Vomiting Pantoprazole Sodium (Protonix Ec Tab) 40 mg PO DAILY [facility] Last Admin: 04/08/17 10:55 Dose: 40 mg Pregabalin (Lyrica) 75 mg PO BID [facility] Last Admin: 04/08/17 10:20 Dose: 75 mg Rosuvastatin Calcium (Crestor) 5 mg PO HS [facility] Fluticasone/Salmeterol (Advair Diskus 500/50) 1 puff IH DAILY [facility] Zolpidem Tartrate (Ambien) 5 mg PO HS [facility] - Labs Labs: 04/08/17 07:31 04/08/17 07:31 - Constitutional Appears: Well, Non-toxic, No Acute Distress - Head Exam Head Exam: ATRAUMATIC, NORMAL INSPECTION, NORMOCEPHALIC - Eye Exam Eye Exam: EOMI, Normal appearance, PERRL - ENT Exam ENT Exam: Mucous Membranes Moist, Normal Exam - Neck Exam Neck Exam: Full ROM, Normal Inspection. absent: Lymphadenopathy - Respiratory Exam Respiratory Exam: Clear to Ausculation Bilateral, NORMAL BREATHING PATTERN - Cardiovascular Exam Cardiovascular Exam: REGULAR RHYTHM, +S1, +S2. absent: Murmur - GI/Abdominal Exam GI & Abdominal Exam: Tenderness - Rectal Exam Rectal Exam: Deferred - Extremities Exam Extremities Exam: Full ROM, Normal Capillary Refill, Normal Inspection. absent : Joint Swelling, Pedal Edema - Back Exam Back Exam: NORMAL INSPECTION - Neurological Exam Neurological Exam: Alert, Awake, Oriented x3 - Psychiatric Exam Psychiatric exam: Normal Affect, Normal Mood - Skin Skin Exam: Dry, Intact, Normal Color, Warm Assessment and Plan - Assessment and Plan (Free Text) Assessment: 67 F with PMHx of HTN, Hypothyroidism, HLD, COPD, Seizure Disorder, GERD, and Hemangioma who presents to the ED with abdominal pain x 3 days. Plan: Diverticulitis * Afebrile, no leukocytosis, vitals stable * 04/08: Seen by Dr Medina, GI: "Patient is feeling better after starting with IV antibiotics. Has multiple medical alleregies and reactions. Would treat for 10- 14 days and then plan colonoscopy which was due in 8-12 weeks. Advance diet when pain has improved and exam is benign" * 04/08: CT abd/pelvis with po and iv contrast cancelled due to patients allergy to shellfish * NPO, IVF - D5 * Started 04/07/17 on Clindamycin 300 Q8H and Aztreonam 2gm Q8H (due to multiple allergies, allergy to bactrim) * CT AB & P w/o IV contrast: Colonic diverticula. Evaluation of bowel limited without enteric contrast. Question slight increased. mesenteric markings adjacent to colonic diverticulum in the rectosigmoid region, axial image 66,. cannot exclude mild diverticulitis. Partial visualization of approximately 2 mm nodule in the right lower lobe visualized on the 1st image. on this study. Additional 2 mm nodule in the right lower lobe on image 2. Again noted is a low density lesion in the right lobe of the liver measuring approximately 7 cm in. maximal dimension, 2015 study not available for comparison at time of report. Additional. subcentimeter low-attenuation lesion noted inferior to this , unchanged from 2014. Please correlate. with prior imaging diagnosis. Prior reports have recommended followup MRI/ultrasound. Gallstone in the gallbladder without CT evidence of acute cholecystitis. Evidence of subcentimeter hypoattenuating nodule in the left adrenal gland, unchanged from prior. study in 2014. Please see additional details/findings as above. Correlate clinically. Followup as warranted. * GI consult- Dr. Loza - help appreciated UTI 04/08: Per Dr Medina, "Doubt colo-vesicle fistula based on symptoms" 04/08: Renal Ultrasound: No evidence of urinary tract obstruction. Unremarkable examination. * UA: + nitrate, + LE * Started 04/07/17 on Clindamycin 300 Q8H and Aztreonam 2gm Q8H (due to multiple allergies) * F/U Urine culture HTN * Resumed home medications: Avalide 1 tab po daily * HHD Hypothyroidism * Resumed home medications: Synthroid 112 mcg PO daily HLD * Resumed home medications: Crestor 5 mg PO QHS COPD * Resumed home medications: Duoneb PRN, Singulair 10mg PO QHS, Advair diskus Seizure Disorder * Resumed home medications: Keppra 1250mg PO BID, Lyrica 75mg PO BID GERD * Protonix 40mg IVP daily * Per Dr Medina, Carafate as needed Hx of Hemangioma * Routinely monitored Prophylactic Measures * GI PPX: Protonix 40mg IVP daily * DVT PPX: SCDs, Lovenox 40mg SC daily <Hafsa Rodrigues V - Last Filed: 04/09/17 16:28> Objective - Vital Signs/Intake and Output Vital Signs (last 24 hours): Temp Pulse Resp BP Pulse Ox 97.8 F 74 20 127/75 96 04/09/17 00:00 04/09/17 00:00 04/09/17 00:00 04/09/17 00:00 04/09/17 00:00 Intake and Output: 04/09/17 04/09/17 06:59 18:59 Intake Total 800 Balance 800 - Medications Medications: Current Medications Acetaminophen (Tylenol 325mg Tab) 650 mg PO Q6 PRN PRN Reason: Fever >100.4 F Acetaminophen (Tylenol 325mg Tab) 650 mg PO Q6 PRN PRN Reason: Pain, Mild (1-3) Albuterol/Ipratropium (Duoneb 3 Mg/0.5 Mg (3 Ml) Ud) 3 ml INH RQ6 PRN PRN Reason: Shortness of Breath Aspirin (Aspirin) 325 mg PO DAILY [facility] Last Admin: 04/09/17 09:15 Dose: 325 mg Enoxaparin Sodium (Lovenox) 40 mg SC DAILY [facility] Last Admin: 04/09/17 09:15 Dose: 40 mg Hydrochlorothiazide (Hydrodiuril) 25 mg PO DAILY [facility] Last Admin: 04/09/17 09:15 Dose: 25 mg Dextrose/Sodium Chloride (Dextrose 5%/0.9% Ns 1000 Ml) 1,000 mls @ 100 mls/hr IV .Q10H [facility] Last Admin: 04/08/17 20:46 Dose: 100 mls/hr Aztreonam 2 gm/ Sodium (Chloride) 100 mls @ 200 mls/hr IVPB Q8H [facility] Last Admin: 04/09/17 10:00 Dose: 200 mls/hr Clindamycin Phosphate 300 mg/ (Sodium Chloride) 52 mls @ 104 mls/hr IVPB Q6H [facility] Last Admin: 04/09/17 13:39 Dose: 104 mls/hr Ketorolac Tromethamine (Toradol) 30 mg IVP Q6 PRN PRN Reason: Pain, moderate (4-7) Levetiracetam (Keppra) 1,000 mg PO BID [facility] Last Admin: 04/09/17 09:15 Dose: 1,000 mg Levetiracetam (Keppra) 250 mg PO BID [facility] Last Admin: 04/09/17 09:15 Dose: 250 mg Levothyroxine Sodium (Synthroid) 112 mcg PO DAILY@0630 [facility] Last Admin: 04/09/17 05:58 Dose: 112 mcg Losartan Potassium (Cozaar) 100 mg PO DAILY [facility] Last Admin: 04/09/17 09:15 Dose: 100 mg Montelukast Sodium (Singulair) 10 mg PO [facility] Last Admin: 04/08/17 21:26 Dose: 10 mg Ondansetron HCl (Zofran Inj) 4 mg IVP Q6H PRN PRN Reason: Nausea/Vomiting Pantoprazole Sodium (Protonix Ec Tab) 40 mg PO DAILY [facility] Last Admin: 04/09/17 09:15 Dose: 40 mg Pneumococcal Polyvalent Vaccine (Pneumovax 23 Vaccine) 0.5 ml IM .ONCE ONE Stop: 04/11/17 10:01 Pregabalin (Lyrica) 75 mg PO BID [facility] Last Admin: 04/09/17 09:21 Dose: 75 mg Rosuvastatin Calcium (Crestor) 5 mg PO [facility] Last Admin: 04/08/17 21:25 Dose: 5 mg Fluticasone/Salmeterol (Advair Diskus 500/50) 1 puff IH DAILY [facility] Zolpidem Tartrate (Ambien) 5 mg PO [facility] Last Admin: 04/08/17 21:26 Dose: 5 mg - Labs Labs: 04/09/17 07:00 04/09/17 07:00 Attending/Attestation - Attestation I have personally seen and examined this patient.: Yes I have fully participated in the care of the patient.: Yes I have reviewed all pertinent clinical information, including history, physical exam and plan: Yes Notes (Text): This is late computer entry for 04/08/17. Patient seen, examined and case discussed with day-time manager internet. Patient reporting recurrent urinary tract infection symptoms stemming from . Patient reports she has attempted Bactrim twice as outpatient but did not have symptom relief. Patient reports she saw Dr. Melo (urology) as outpatient given pyridum but did not have symptom relief. Patient reporting dysuria and associated suprapubic/LLQ pain. Awaiting urine culture. Discussed with GI, Dr. Smith, who is known to the patient, no plans for any intervention at this time. Patient ordered for Renal US r/o pyleonephritis. Patient has allergy to shellfish unable to get CT scan Pelvis and Abdomen PO and IV contrast secondary to IV contrast. Patient is currently on IV Abx: Clindamycin 300mg IV Q 8 hours and Aztreonam 2gm IV Q 8 hours.
[2017-04-09] MEDS: Aztreonam 2 GM in Sodium Chloride 0.9% 100 ML IVPB SCH ×3 (01:15→19:55)
[2017-04-09] MEDS: Clindamycin 300 MG in Sodium Chloride 0.9% 50 ML IVPB SCH ×4 (02:13→21:07)
[2017-04-09] MEDS: Levothyroxine 112 MCG TAB PO SCH (05:58)
[2017-04-09 07:16] LABS: ALBUMIN 3.4 g/dL (3.5-5.0)
[2017-04-09 07:17] LABS: BASO # 0.1 K/uL (0.0-0.2); BASO % 1.9 % (0.0-2.0); EOS # 0.3 K/uL (0.0-0.7); EOS % 6.9 % (0.0-4.0); HEMOGLOBIN 11.5 g/dL (11.0-16.0); LYMPH # 1.5 K/uL (1.0-4.3); LYMPH % 32.9 % (20.0-40.0); MEAN CELL VOLUME 83.1 fL (81.0-99.0); MEAN CORPUSCULAR HEMOGLOBIN 27.4 pg (27.0-31.0); MEAN CORPUSCULAR HGB CONC 32.9 g/dL (33.0-37.0); MEAN PLATELET VOLUME 7.6 fL (7.2-11.7); MONO # 0.7 K/uL (0.0-0.8); MONO % 16.1 % (0.0-10.0); NEUT # 1.9 K/uL (1.8-7.0); NEUT % 42.2 % (50.0-75.0); NRBC % 0.1 % (0.0-2.0); RBC 4.22 Mil/uL (3.80-5.20); RED CELL DISTRIBUTION WIDTH 14.6 % (11.5-14.5); WHITE BLOOD COUNT 4.4 K/uL (4.8-10.8)
[2017-04-09 07:19] LABS: ALB/GLOB RATIO 1.4 (1.0-2.1); AST/SGOT 30 U/L (14-36); BLOOD UREA NITROGEN 7 mg/dL (7-17); GFR AFRICAN-AMERICAN > 60; GFR NON-AFRICAN AMERICAN > 60
[2017-04-09 07:20] LABS: ALT/SGPT 21 U/L (9-52)
--- NOTE | 2017-04-09 08:08 | CP.PCM.PN ---
<Hafsa Rodrigues V - Last Filed: 04/09/17 16:28> Objective - Vital Signs/Intake and Output Vital Signs (last 24 hours): Temp Pulse Resp BP Pulse Ox 97.8 F 74 20 127/75 96 04/09/17 00:00 04/09/17 00:00 04/09/17 00:00 04/09/17 00:00 04/09/17 00:00 Intake and Output: 04/09/17 04/09/17 06:59 18:59 Intake Total 800 Balance 800 - Medications Medications: Current Medications Acetaminophen (Tylenol 325mg Tab) 650 mg PO Q6 PRN PRN Reason: Fever >100.4 F Acetaminophen (Tylenol 325mg Tab) 650 mg PO Q6 PRN PRN Reason: Pain, Mild (1-3) Albuterol/Ipratropium (Duoneb 3 Mg/0.5 Mg (3 Ml) Ud) 3 ml INH RQ6 PRN PRN Reason: Shortness of Breath Aspirin (Aspirin) 325 mg PO DAILY [facility] Last Admin: 04/09/17 09:15 Dose: 325 mg Enoxaparin Sodium (Lovenox) 40 mg SC DAILY [facility] Last Admin: 04/09/17 09:15 Dose: 40 mg Hydrochlorothiazide (Hydrodiuril) 25 mg PO DAILY [facility] Last Admin: 04/09/17 09:15 Dose: 25 mg Dextrose/Sodium Chloride (Dextrose 5%/0.9% Ns 1000 Ml) 1,000 mls @ 100 mls/hr IV .Q10H [facility] Last Admin: 04/08/17 20:46 Dose: 100 mls/hr Aztreonam 2 gm/ Sodium (Chloride) 100 mls @ 200 mls/hr IVPB Q8H [facility] Last Admin: 04/09/17 10:00 Dose: 200 mls/hr Clindamycin Phosphate 300 mg/ (Sodium Chloride) 52 mls @ 104 mls/hr IVPB Q6H [facility] Last Admin: 04/09/17 13:39 Dose: 104 mls/hr Ketorolac Tromethamine (Toradol) 30 mg IVP Q6 PRN PRN Reason: Pain, moderate (4-7) Levetiracetam (Keppra) 1,000 mg PO BID [facility] Last Admin: 04/09/17 09:15 Dose: 1,000 mg Levetiracetam (Keppra) 250 mg PO BID [facility] Last Admin: 04/09/17 09:15 Dose: 250 mg Levothyroxine Sodium (Synthroid) 112 mcg PO DAILY@0630 [facility] Last Admin: 04/09/17 05:58 Dose: 112 mcg Losartan Potassium (Cozaar) 100 mg PO DAILY [facility] Last Admin: 04/09/17 09:15 Dose: 100 mg Montelukast Sodium (Singulair) 10 mg PO [facility] Last Admin: 04/08/17 21:26 Dose: 10 mg Ondansetron HCl (Zofran Inj) 4 mg IVP Q6H PRN PRN Reason: Nausea/Vomiting Pantoprazole Sodium (Protonix Ec Tab) 40 mg PO DAILY [facility] Last Admin: 04/09/17 09:15 Dose: 40 mg Pneumococcal Polyvalent Vaccine (Pneumovax 23 Vaccine) 0.5 ml IM .ONCE ONE Stop: 04/11/17 10:01 Pregabalin (Lyrica) 75 mg PO BID [facility] Last Admin: 04/09/17 09:21 Dose: 75 mg Rosuvastatin Calcium (Crestor) 5 mg PO [facility] Last Admin: 04/08/17 21:25 Dose: 5 mg Fluticasone/Salmeterol (Advair Diskus 500/50) 1 puff IH DAILY [facility] Zolpidem Tartrate (Ambien) 5 mg PO [facility] Last Admin: 04/08/17 21:26 Dose: 5 mg - Labs Labs: 04/09/17 07:00 04/09/17 07:00 Attending/Attestation - Attestation I have personally seen and examined this patient.: Yes I have fully participated in the care of the patient.: Yes I have reviewed all pertinent clinical information, including history, physical exam and plan: Yes Notes (Text): Patient seen, examined, and case discussed with day-time resident. Patient reports lower abdominal pain has improved, reports gerd-type symptoms but reports she is used to taking her meds with food. Patient reports frequency but is currently on the IV antibiotic. Awaiting urine culture to come back. Patient is afebrile for 24 hours. Patient has no apparent leukocytosis. Patient' s potasium improved upon replenishing from yesterday. Diet advanced to liquid. <Kurt Fuentes - Last Filed: 04/09/17 20:45> Subjective - Date & Time of Evaluation Date of Evaluation: 04/09/17 Time of Evaluation: 08:50 - Subjective Subjective: Medicine Note- Hospitalist Service Patient was seen and examined at bedside. Patient reports she still has some left sided burning abdominal pain, but it has improved significantly since she was admitted.. She says she does not feel hungry.Denies any nausea, vomiting, diarrhea constipation. No events overnight, per nursing. Objective - Vital Signs/Intake and Output Vital Signs (last 24 hours): Temp Pulse Resp BP Pulse Ox 97.8 F 74 20 127/75 96 04/09/17 00:00 04/09/17 00:00 04/09/17 00:00 04/09/17 00:00 04/09/17 00:00 Intake and Output: 04/09/17 04/09/17 06:59 18:59 Intake Total 800 Balance 800 - Medications Medications: Current Medications Acetaminophen (Tylenol 325mg Tab) 650 mg PO Q6 PRN PRN Reason: Fever >100.4 F Acetaminophen (Tylenol 325mg Tab) 650 mg PO Q6 PRN PRN Reason: Pain, Mild (1-3) Albuterol/Ipratropium (Duoneb 3 Mg/0.5 Mg (3 Ml) Ud) 3 ml INH RQ6 PRN PRN Reason: Shortness of Breath Aspirin (Aspirin) 325 mg PO DAILY [facility] Last Admin: 04/08/17 10:20 Dose: 325 mg Enoxaparin Sodium (Lovenox) 40 mg SC DAILY [facility] Last Admin: 04/08/17 10:20 Dose: 40 mg Hydrochlorothiazide (Hydrodiuril) 25 mg PO DAILY [facility] Last Admin: 04/08/17 21:26 Dose: 25 mg Dextrose/Sodium Chloride (Dextrose 5%/0.9% Ns 1000 Ml) 1,000 mls @ 100 mls/hr IV .Q10H [facility] Last Admin: 04/08/17 20:46 Dose: 100 mls/hr Aztreonam 2 gm/ Sodium (Chloride) 100 mls @ 200 mls/hr IVPB Q8H [facility] Last Admin: 04/09/17 01:15 Dose: 200 mls/hr Clindamycin Phosphate 300 mg/ (Sodium Chloride) 52 mls @ 104 mls/hr IVPB Q6H [facility] Last Admin: 04/09/17 02:13 Dose: 104 mls/hr Ketorolac Tromethamine (Toradol) 30 mg IVP Q6 PRN PRN Reason: Pain, moderate (4-7) Levetiracetam (Keppra) 1,000 mg PO BID [facility] Last Admin: 04/08/17 20:47 Dose: 1,000 mg Levetiracetam (Keppra) 250 mg PO BID [facility] Last Admin: 04/08/17 20:47 Dose: 250 mg Levothyroxine Sodium (Synthroid) 112 mcg PO DAILY@0630 [facility] Last Admin: 04/09/17 05:58 Dose: 112 mcg Losartan Potassium (Cozaar) 100 mg PO DAILY [facility] Last Admin: 04/08/17 21:26 Dose: 100 mg Montelukast Sodium (Singulair) 10 mg PO [facility] Last Admin: 04/08/17 21:26 Dose: 10 mg Ondansetron HCl (Zofran Inj) 4 mg IVP Q6H PRN PRN Reason: Nausea/Vomiting Pantoprazole Sodium (Protonix Ec Tab) 40 mg PO DAILY [facility] Last Admin: 04/08/17 10:55 Dose: 40 mg Pregabalin (Lyrica) 75 mg PO BID [facility] Last Admin: 04/08/17 20:48 Dose: 75 mg Rosuvastatin Calcium (Crestor) 5 mg PO [facility] Last Admin: 04/08/17 21:25 Dose: 5 mg Fluticasone/Salmeterol (Advair Diskus 500/50) 1 puff IH DAILY [facility] Zolpidem Tartrate (Ambien) 5 mg PO [facility] Last Admin: 04/08/17 21:26 Dose: 5 mg - Labs Labs: 04/09/17 07:00 04/09/17 07:00 - Constitutional Appears: Non-toxic, No Acute Distress - Head Exam Head Exam: ATRAUMATIC, NORMAL INSPECTION, NORMOCEPHALIC - Eye Exam Pupil Exam: NORMAL ACCOMODATION, PERRL - ENT Exam ENT Exam: Mucous Membranes Moist - Respiratory Exam Respiratory Exam: Clear to Ausculation Bilateral, NORMAL BREATHING PATTERN. absent: Prolonged Expiratory Phase, Rales, Rhonchi, Wheezes - Cardiovascular Exam Cardiovascular Exam: REGULAR RHYTHM, +S1, +S2 - GI/Abdominal Exam GI & Abdominal Exam: Soft, Tenderness, Normal Bowel Sounds. absent: Diminished Bowel Sounds, Hypoactive Bowel Sounds - Extremities Exam Extremities Exam: Normal Capillary Refill, Normal Inspection - Neurological Exam Neurological Exam: Alert, Awake, Oriented x3 - Psychiatric Exam Psychiatric exam: Normal Affect, Normal Mood - Skin Skin Exam: Dry, Intact, Normal Color, Warm Assessment and Plan - Assessment and Plan (Free Text) Assessment: 67 F with PMHx of HTN, Hypothyroidism, HLD, COPD, Seizure Disorder, GERD, and Hemangioma who presents to the ED with abdominal pain x 3 days. Plan: Diverticulitis * Afebrile, no leukocytosis, vitals stable * Started on clear liquid diet, will advance as tolerated as per GI * 04/08: Seen by Dr Medina, GI: "Patient is feeling better after starting with IV antibiotics. Has multiple medical alleregies and reactions. Would treat for 10- 14 days and then plan colonoscopy which was due in 8-12 weeks. Advance diet when pain has improved and exam is benign" * Started 04/07/17 on Clindamycin 300 Q8H and Aztreonam 2gm Q8H (due to multiple allergies, allergy to bactrim) * CT AB & P w/o IV contrast: Colonic diverticula. Evaluation of bowel limited without enteric contrast. Question slight increased. mesenteric markings adjacent to colonic diverticulum in the rectosigmoid region, axial image 66,. cannot exclude mild diverticulitis. Partial visualization of approximately 2 mm nodule in the right lower lobe visualized on the 1st image. on this study. Additional 2 mm nodule in the right lower lobe on image 2. Again noted is a low density lesion in the right lobe of the liver measuring approximately 7 cm in. maximal dimension, 2014 study not available for comparison at time of report. Additional. subcentimeter low-attenuation lesion noted inferior to this , unchanged from 2014. Please correlate. with prior imaging diagnosis. Prior reports have recommended followup MRI/ultrasound. Gallstone in the gallbladder without CT evidence of acute cholecystitis. Evidence of subcentimeter hypoattenuating nodule in the left adrenal gland, unchanged from prior. study in 2014. Please see additional details/findings as above. Correlate clinically. Followup as warranted. * GI consult- Dr. Loza - help appreciated UTI 04/08: Per Dr Medina, "Doubt colo-vesicle fistula based on symptoms" 04/08: Renal Ultrasound: No evidence of urinary tract obstruction. Unremarkable examination. * UA: + nitrate, + LE * Started 04/07/17 on Clindamycin 300 Q8H and Aztreonam 2gm Q8H (due to multiple allergies) * Urine culture- prelim- gram negative rods HTN * Resumed home medications: Avalide 1 tab po daily * HHD Hypothyroidism * Resumed home medications: Synthroid 112 mcg PO daily HLD * Resumed home medications: Crestor 5 mg PO QHS COPD * Resumed home medications: Duoneb PRN, Singulair 10mg PO QHS, Advair diskus Seizure Disorder * Resumed home medications: Keppra 1250mg PO BID, Lyrica 75mg PO BID GERD * Protonix 40mg IVP daily * Per Amanda Mccoy as needed Hx of Hemangioma * Routinely monitored Prophylactic Measures * GI PPX: Protonix 40mg IVP daily * DVT PPX: SCDs, Lovenox 40mg SC daily
[2017-04-09] MEDS: Enoxaparin 40 mg Syringe SC SCH (09:15)
[2017-04-09] MEDS: Pantoprazole 40 mg EC Tab PO SCH (09:15)
--- NOTE | 2017-04-09 09:49 | CP.PCM.PN ---
Subjective - Date & Time of Evaluation Date of Evaluation: 04/09/17 Time of Evaluation: 09:46 - Subjective Subjective: Covering Dr Smith CC: Follow up Diverticulitis Mild LLQ discomfort. Mild dyspepsia, especially after PO meds, without food. Overall feels improved. Objective - Vital Signs/Intake and Output Vital Signs (last 24 hours): Temp Pulse Resp BP Pulse Ox 97.8 F 74 20 127/75 96 04/09/17 00:00 04/09/17 00:00 04/09/17 00:00 04/09/17 00:00 04/09/17 00:00 Intake and Output: 04/09/17 04/09/17 06:59 18:59 Intake Total 800 Balance 800 - Medications Medications: Current Medications Acetaminophen (Tylenol 325mg Tab) 650 mg PO Q6 PRN PRN Reason: Fever >100.4 F Acetaminophen (Tylenol 325mg Tab) 650 mg PO Q6 PRN PRN Reason: Pain, Mild (1-3) Albuterol/Ipratropium (Duoneb 3 Mg/0.5 Mg (3 Ml) Ud) 3 ml INH RQ6 PRN PRN Reason: Shortness of Breath Aspirin (Aspirin) 325 mg PO DAILY [facility] Last Admin: 04/09/17 09:15 Dose: 325 mg Enoxaparin Sodium (Lovenox) 40 mg SC DAILY [facility] Last Admin: 04/09/17 09:15 Dose: 40 mg Hydrochlorothiazide (Hydrodiuril) 25 mg PO DAILY [facility] Last Admin: 04/09/17 09:15 Dose: 25 mg Dextrose/Sodium Chloride (Dextrose 5%/0.9% Ns 1000 Ml) 1,000 mls @ 100 mls/hr IV .Q10H [facility] Last Admin: 04/08/17 20:46 Dose: 100 mls/hr Aztreonam 2 gm/ Sodium (Chloride) 100 mls @ 200 mls/hr IVPB Q8H [facility] Last Admin: 04/09/17 01:15 Dose: 200 mls/hr Clindamycin Phosphate 300 mg/ (Sodium Chloride) 52 mls @ 104 mls/hr IVPB Q6H [facility] Last Admin: 04/09/17 08:00 Dose: 104 mls/hr Ketorolac Tromethamine (Toradol) 30 mg IVP Q6 PRN PRN Reason: Pain, moderate (4-7) Levetiracetam (Keppra) 1,000 mg PO BID [facility] Last Admin: 04/09/17 09:15 Dose: 1,000 mg Levetiracetam (Keppra) 250 mg PO BID [facility] Last Admin: 04/09/17 09:15 Dose: 250 mg Levothyroxine Sodium (Synthroid) 112 mcg PO DAILY@0630 [facility] Last Admin: 04/09/17 05:58 Dose: 112 mcg Losartan Potassium (Cozaar) 100 mg PO DAILY [facility] Last Admin: 04/09/17 09:15 Dose: 100 mg Montelukast Sodium (Singulair) 10 mg PO [facility] Last Admin: 04/08/17 21:26 Dose: 10 mg Ondansetron HCl (Zofran Inj) 4 mg IVP Q6H PRN PRN Reason: Nausea/Vomiting Pantoprazole Sodium (Protonix Ec Tab) 40 mg PO DAILY [facility] Last Admin: 04/09/17 09:15 Dose: 40 mg Pregabalin (Lyrica) 75 mg PO BID [facility] Last Admin: 04/09/17 09:21 Dose: 75 mg Rosuvastatin Calcium (Crestor) 5 mg PO [facility] Last Admin: 04/08/17 21:25 Dose: 5 mg Fluticasone/Salmeterol (Advair Diskus 500/50) 1 puff IH DAILY [facility] Zolpidem Tartrate (Ambien) 5 mg PO [facility] Last Admin: 04/08/17 21:26 Dose: 5 mg - Labs Labs: 04/09/17 07:00 04/09/17 07:00 - Constitutional Appears: Well, No Acute Distress - Head Exam Head Exam: NORMOCEPHALIC - Eye Exam Eye Exam: absent: Scleral icterus - Respiratory Exam Respiratory Exam: Clear to Ausculation Bilateral - Cardiovascular Exam Cardiovascular Exam: REGULAR RHYTHM - GI/Abdominal Exam GI & Abdominal Exam: Soft. absent: Tenderness Assessment and Plan (1) Diverticulitis Assessment & Plan: Clinically responding to conservative management. Rec: Antibiotic regimen as outlined in Dr Smith's consult. May start clear liquids today and advance diet as tolerated. Status: Acute (2) GERD (gastroesophageal reflux disease) Assessment & Plan: On medical management. Stable. Status: Acute (3) H/O adenomatous polyp of colon Assessment & Plan: Outpatient colonoscopy to be arranged Status: Chronic
[2017-04-09] MEDS: Dextrose 5%/0.9% NS 1,000 ML IV SCH (21:08)
[2017-04-10] MEDS: Clindamycin 300 MG in Sodium Chloride 0.9% 50 ML IVPB SCH ×4 (01:06→20:00)
[2017-04-10] MEDS: Aztreonam 2 GM in Sodium Chloride 0.9% 100 ML IVPB SCH ×3 (01:06→17:53)
[2017-04-10] MEDS: Dextrose 5%/0.9% NS 1,000 ML IV SCH ×2 (01:08→11:31)
[2017-04-10] MEDS: Levothyroxine 112 MCG TAB PO SCH (06:03)
[2017-04-10 07:55] LABS: BASO # 0.1 K/uL (0.0-0.2); BASO % 1.3 % (0.0-2.0); EOS # 0.4 K/uL (0.0-0.7); EOS % 7.5 % (0.0-4.0); HEMOGLOBIN 11.9 g/dL (11.0-16.0); LYMPH # 1.7 K/uL (1.0-4.3); LYMPH % 30.7 % (20.0-40.0); MEAN CELL VOLUME 83.4 fL (81.0-99.0); MEAN CORPUSCULAR HEMOGLOBIN 27.5 pg (27.0-31.0); MEAN PLATELET VOLUME 7.8 fL (7.2-11.7); MONO # 0.7 K/uL (0.0-0.8); MONO % 13.3 % (0.0-10.0); NEUT # 2.6 K/uL (1.8-7.0); NEUT % 47.2 % (50.0-75.0); RBC 4.31 Mil/uL (3.80-5.20); RED CELL DISTRIBUTION WIDTH 14.7 % (11.5-14.5); WHITE BLOOD COUNT 5.5 K/uL (4.8-10.8)
[2017-04-10 08:02] LABS: ALBUMIN 3.5 g/dL (3.5-5.0)
[2017-04-10 08:05] LABS: ALB/GLOB RATIO 1.4 (1.0-2.1); AST/SGOT 28 U/L (14-36); BLOOD UREA NITROGEN 7 mg/dL (7-17); GFR AFRICAN-AMERICAN > 60; GFR NON-AFRICAN AMERICAN > 60
[2017-04-10 08:06] LABS: ALT/SGPT 25 U/L (9-52); CALCIUM 9.1 mg/dl (8.6-10.4); MAGNESIUM 1.9 mg/dL (1.6-2.3)
[2017-04-10] MEDS: Pantoprazole 40 mg EC Tab PO SCH (09:02)
[2017-04-10] MEDS: Enoxaparin 40 mg Syringe SC SCH (09:03)
--- NOTE | 2017-04-10 12:14 | CP.PCM.PN ---
Subjective - Date & Time of Evaluation Date of Evaluation: 04/10/17 Time of Evaluation: 12:12 - Subjective Subjective: Covering Dr Smith CC: diverticulitis Less LLQ pain, sharp. Started regular diet. + Heartburns Objective - Vital Signs/Intake and Output Vital Signs (last 24 hours): Temp Pulse Resp BP Pulse Ox 97.4 F L 71 20 107/63 97 04/10/17 00:00 04/10/17 00:00 04/10/17 00:00 04/10/17 00:00 04/10/17 00:00 Intake and Output: 04/10/17 04/10/17 06:59 18:59 Intake Total 920 Balance 920 - Medications Medications: Current Medications Acetaminophen (Tylenol 325mg Tab) 650 mg PO Q6 PRN PRN Reason: Fever >100.4 F Acetaminophen (Tylenol 325mg Tab) 650 mg PO Q6 PRN PRN Reason: Pain, Mild (1-3) Al Hydrox/Mg Hydrox/Simethicone (Maalox 30 Ml) 30 ml PO Q6H PRN PRN Reason: Indigestion / Heartburn Albuterol/Ipratropium (Duoneb 3 Mg/0.5 Mg (3 Ml) Ud) 3 ml INH RQ6 PRN PRN Reason: Shortness of Breath Aspirin (Aspirin) 325 mg PO DAILY [facility] Last Admin: 04/10/17 09:02 Dose: 325 mg Enoxaparin Sodium (Lovenox) 40 mg SC DAILY [facility] Last Admin: 04/10/17 09:03 Dose: 40 mg Hydrochlorothiazide (Hydrodiuril) 25 mg PO DAILY [facility] Last Admin: 04/10/17 09:02 Dose: 25 mg Dextrose/Sodium Chloride (Dextrose 5%/0.9% Ns 1000 Ml) 1,000 mls @ 100 mls/hr IV .Q10H [facility] Last Admin: 04/10/17 01:08 Dose: 100 mls/hr Aztreonam 2 gm/ Sodium (Chloride) 100 mls @ 200 mls/hr IVPB Q8H [facility] Last Admin: 04/10/17 09:09 Dose: 200 mls/hr Clindamycin Phosphate 300 mg/ (Sodium Chloride) 52 mls @ 104 mls/hr IVPB Q6H [facility] Last Admin: 04/10/17 08:00 Dose: 104 mls/hr Levetiracetam (Keppra) 1,000 mg PO BID [facility] Last Admin: 04/10/17 09:02 Dose: 1,000 mg Levetiracetam (Keppra) 250 mg PO BID [facility] Last Admin: 04/10/17 09:02 Dose: 250 mg Levothyroxine Sodium (Synthroid) 112 mcg PO DAILY@0630 [facility] Last Admin: 04/10/17 06:03 Dose: 112 mcg Losartan Potassium (Cozaar) 100 mg PO DAILY [facility] Last Admin: 04/10/17 09:02 Dose: 100 mg Montelukast Sodium (Singulair) 10 mg PO [facility] Last Admin: 04/09/17 22:22 Dose: 10 mg Ondansetron HCl (Zofran Inj) 4 mg IVP Q6H PRN PRN Reason: Nausea/Vomiting Pantoprazole Sodium (Protonix Ec Tab) 40 mg PO DAILY [facility] Last Admin: 04/10/17 09:02 Dose: 40 mg Pneumococcal Polyvalent Vaccine (Pneumovax 23 Vaccine) 0.5 ml IM .ONCE ONE Stop: 04/11/17 10:01 Pregabalin (Lyrica) 75 mg PO BID [facility] Last Admin: 04/10/17 09:02 Dose: 75 mg Rosuvastatin Calcium (Crestor) 5 mg PO [facility] Last Admin: 04/09/17 22:22 Dose: 5 mg Fluticasone/Salmeterol (Advair Diskus 500/50) 1 puff IH DAILY [facility] Zolpidem Tartrate (Ambien) 5 mg PO [facility] Last Admin: 04/09/17 22:22 Dose: 5 mg - Labs Labs: 04/10/17 07:40 04/10/17 07:40 - Constitutional Appears: Well, No Acute Distress - Head Exam Head Exam: NORMOCEPHALIC - Eye Exam Eye Exam: absent: Scleral icterus - Respiratory Exam Respiratory Exam: Clear to Ausculation Bilateral - Cardiovascular Exam Cardiovascular Exam: REGULAR RHYTHM - GI/Abdominal Exam GI & Abdominal Exam: Soft. absent: Tenderness Assessment and Plan (1) Diverticulitis Assessment & Plan: Improving Continue antibiotics Status: Acute (2) GERD (gastroesophageal reflux disease) Status: Acute (3) H/O adenomatous polyp of colon Assessment & Plan: Workup and management as previously outlined by Dr Smith Status: Chronic
[2017-04-10] MEDS: Aluminum Hydroxide/Magnesium Hydroxide Susp (30 mL) PO PRN ×2 (13:35→21:05)
--- NOTE | 2017-04-10 17:21 | CP.PCM.PN ---
<AlfredoKurt - Last Filed: 04/10/17 17:17> Subjective - Date & Time of Evaluation Date of Evaluation: 04/10/17 Time of Evaluation: 08:15 - Subjective Subjective: Medicine Note- Hospitalist Service Patient was seen and examined at bedside. Patient reports that her abdominal pain is getting much better. She was able to tolerate the PO liquid diet. She says she had a liquid BM last night. She states she still feels some epigastric discomfort, that feels like reflux. No events overnight, per nursing. Objective - Vital Signs/Intake and Output Vital Signs (last 24 hours): Temp Pulse Resp BP Pulse Ox 97.5 F L 66 20 130/71 97 04/10/17 16:00 04/10/17 16:00 04/10/17 16:00 04/10/17 16:00 04/10/17 16:00 Intake and Output: 04/10/17 04/10/17 06:59 18:59 Intake Total 920 1160 Balance 920 1160 - Medications Medications: Current Medications Acetaminophen (Tylenol 325mg Tab) 650 mg PO Q6 PRN PRN Reason: Fever >100.4 F Acetaminophen (Tylenol 325mg Tab) 650 mg PO Q6 PRN PRN Reason: Pain, Mild (1-3) Al Hydrox/Mg Hydrox/Simethicone (Maalox 30 Ml) 30 ml PO Q6H PRN PRN Reason: Indigestion / Heartburn Last Admin: 04/10/17 13:35 Dose: 30 ml Albuterol/Ipratropium (Duoneb 3 Mg/0.5 Mg (3 Ml) Ud) 3 ml INH RQ6 PRN PRN Reason: Shortness of Breath Aspirin (Aspirin) 325 mg PO DAILY [facility] Last Admin: 04/10/17 09:02 Dose: 325 mg Enoxaparin Sodium (Lovenox) 40 mg SC DAILY [facility] Last Admin: 04/10/17 09:03 Dose: 40 mg Hydrochlorothiazide (Hydrodiuril) 25 mg PO DAILY [facility] Last Admin: 04/10/17 09:02 Dose: 25 mg Dextrose/Sodium Chloride (Dextrose 5%/0.9% Ns 1000 Ml) 1,000 mls @ 100 mls/hr IV .Q10H [facility] Last Admin: 04/10/17 11:31 Dose: 100 mls/hr Aztreonam 2 gm/ Sodium (Chloride) 100 mls @ 200 mls/hr IVPB Q8H [facility] Last Admin: 04/10/17 09:09 Dose: 200 mls/hr Clindamycin Phosphate 300 mg/ (Sodium Chloride) 52 mls @ 104 mls/hr IVPB Q6H [facility] Last Admin: 04/10/17 13:31 Dose: 104 mls/hr Levetiracetam (Keppra) 1,000 mg PO BID [facility] Last Admin: 04/10/17 09:02 Dose: 1,000 mg Levetiracetam (Keppra) 250 mg PO BID [facility] Last Admin: 04/10/17 09:02 Dose: 250 mg Levothyroxine Sodium (Synthroid) 112 mcg PO DAILY@0630 [facility] Last Admin: 04/10/17 06:03 Dose: 112 mcg Losartan Potassium (Cozaar) 100 mg PO DAILY [facility] Last Admin: 04/10/17 09:02 Dose: 100 mg Montelukast Sodium (Singulair) 10 mg PO [facility] Last Admin: 04/09/17 22:22 Dose: 10 mg Ondansetron HCl (Zofran Inj) 4 mg IVP Q6H PRN PRN Reason: Nausea/Vomiting Pantoprazole Sodium (Protonix Ec Tab) 40 mg PO DAILY [facility] Last Admin: 04/10/17 09:02 Dose: 40 mg Pneumococcal Polyvalent Vaccine (Pneumovax 23 Vaccine) 0.5 ml IM .ONCE ONE Stop: 04/11/17 10:01 Pregabalin (Lyrica) 75 mg PO BID [facility] Last Admin: 04/10/17 09:02 Dose: 75 mg Rosuvastatin Calcium (Crestor) 5 mg PO [facility] Last Admin: 04/09/17 22:22 Dose: 5 mg Fluticasone/Salmeterol (Advair Diskus 500/50) 1 puff IH DAILY [facility] Zolpidem Tartrate (Ambien) 5 mg PO [facility] Last Admin: 04/09/17 22:22 Dose: 5 mg - Labs Labs: 04/10/17 07:40 04/10/17 07:40 - Constitutional Appears: Non-toxic, No Acute Distress - Head Exam Head Exam: ATRAUMATIC, NORMAL INSPECTION, NORMOCEPHALIC - Eye Exam Pupil Exam: NORMAL ACCOMODATION, PERRL - ENT Exam ENT Exam: Mucous Membranes Moist - Respiratory Exam Respiratory Exam: Clear to Ausculation Bilateral, NORMAL BREATHING PATTERN. absent: Prolonged Expiratory Phase, Rales, Rhonchi, Wheezes - Cardiovascular Exam Cardiovascular Exam: REGULAR RHYTHM, +S1, +S2 - GI/Abdominal Exam GI & Abdominal Exam: Soft, Normal Bowel Sounds. absent: Tenderness (mild midepigastric discomfort), Diminished Bowel Sounds, Hypoactive Bowel Sounds, Pulsatile Mass - Extremities Exam Extremities Exam: Normal Capillary Refill, Normal Inspection - Neurological Exam Neurological Exam: Alert, Awake, Oriented x3 - Psychiatric Exam Psychiatric exam: Normal Affect, Normal Mood - Skin Skin Exam: Dry, Intact, Normal Color, Warm Assessment and Plan - Assessment and Plan (Free Text) Assessment: 67 F with PMHx of HTN, Hypothyroidism, HLD, COPD, Seizure Disorder, GERD, and Hemangioma who presents to the ED with abdominal pain x 3 days. Plan: Diverticulitis * Afebrile, no leukocytosis, vitals stable * Advanced diet to soft, heart healthy * started on Maalox Q6h PRN for heartburn * Seen by Dr Medina, GI: "Patient is feeling better after starting with IV antibiotics. Has multiple medical alleregies and reactions. Would treat for 10- 14 days and then plan colonoscopy which was due in 8-12 weeks. Advance diet when pain has improved and exam is benign" * Clindamycin 300 Q8H and Aztreonam 2gm Q8H (Started on 04/07/17 due to multiple allergies, allergy to bactrim) * CT AB & P w/o IV contrast: Colonic diverticula. Evaluation of bowel limited without enteric contrast. Question slight increased. mesenteric markings adjacent to colonic diverticulum in the rectosigmoid region, axial image 66,. cannot exclude mild diverticulitis. Partial visualization of approximately 2 mm nodule in the right lower lobe visualized on the 1st image. on this study. Additional 2 mm nodule in the right lower lobe on image 2. Again noted is a low density lesion in the right lobe of the liver measuring approximately 7 cm in. maximal dimension, 2014 study not available for comparison at time of report. Additional. subcentimeter low-attenuation lesion noted inferior to this , unchanged from 2014. Please correlate. with prior imaging diagnosis. Prior reports have recommended followup MRI/ultrasound. Gallstone in the gallbladder without CT evidence of acute cholecystitis. Evidence of subcentimeter hypoattenuating nodule in the left adrenal gland, unchanged from prior. study in 2014. Please see additional details/findings as above. Correlate clinically. Followup as warranted. * GI consult- Dr. Loza - help appreciated UTI * Renal Ultrasound: No evidence of urinary tract obstruction. Unremarkable examination. * UA: + nitrate, + LE * Started 04/07/17 on Clindamycin 300 Q8H and Aztreonam 2gm Q8H (due to multiple allergies) * Urine culture- prelim- gram positive cocci- awaiting sensitivities HTN * Resumed home medications: Avalide 1 tab po daily * HHD Hypothyroidism * Resumed home medications: Synthroid 112 mcg PO daily HLD * Resumed home medications: Crestor 5 mg PO QHS COPD * Resumed home medications: Duoneb PRN, Singulair 10mg PO QHS, Advair diskus Seizure Disorder * Resumed home medications: Keppra 1250mg PO BID, Lyrica 75mg PO BID GERD * Protonix 40mg IVP daily * Per Dr Smith, Amanda as needed Hx of Hemangioma * Routinely monitored Prophylactic Measures * GI PPX: Protonix 40mg IVP daily * DVT PPX: SCDs, Lovenox 40mg SC daily <Hafsa Rodrigues V - Last Filed: 04/10/17 21:26> Objective - Vital Signs/Intake and Output Vital Signs (last 24 hours): Temp Pulse Resp BP Pulse Ox 97.5 F L 66 20 130/71 97 04/10/17 16:00 04/10/17 16:00 04/10/17 16:00 04/10/17 16:00 04/10/17 16:00 Intake and Output: 04/10/17 04/11/17 18:59 06:59 Intake Total 1160 Balance 1160 - Medications Medications: Current Medications Acetaminophen (Tylenol 325mg Tab) 650 mg PO Q6 PRN PRN Reason: Fever >100.4 F Acetaminophen (Tylenol 325mg Tab) 650 mg PO Q6 PRN PRN Reason: Pain, Mild (1-3) Al Hydrox/Mg Hydrox/Simethicone (Maalox 30 Ml) 30 ml PO Q6H PRN PRN Reason: Indigestion / Heartburn Last Admin: 04/10/17 13:35 Dose: 30 ml Albuterol/Ipratropium (Duoneb 3 Mg/0.5 Mg (3 Ml) Ud) 3 ml INH RQ6 PRN PRN Reason: Shortness of Breath Aspirin (Aspirin) 325 mg PO DAILY [facility] Last Admin: 04/10/17 09:02 Dose: 325 mg Enoxaparin Sodium (Lovenox) 40 mg SC DAILY [facility] Last Admin: 04/10/17 09:03 Dose: 40 mg Hydrochlorothiazide (Hydrodiuril) 25 mg PO DAILY [facility] Last Admin: 04/10/17 09:02 Dose: 25 mg Aztreonam 2 gm/ Sodium (Chloride) 100 mls @ 200 mls/hr IVPB Q8H [facility] Last Admin: 04/10/17 17:53 Dose: 200 mls/hr Clindamycin Phosphate 300 mg/ (Sodium Chloride) 52 mls @ 104 mls/hr IVPB Q6H [facility] Last Admin: 04/10/17 13:31 Dose: 104 mls/hr Levetiracetam (Keppra) 1,000 mg PO BID [facility] Last Admin: 04/10/17 17:51 Dose: 1,000 mg Levetiracetam (Keppra) 250 mg PO BID [facility] Last Admin: 04/10/17 17:51 Dose: 250 mg Levothyroxine Sodium (Synthroid) 112 mcg PO DAILY@0630 [facility] Last Admin: 04/10/17 06:03 Dose: 112 mcg Losartan Potassium (Cozaar) 100 mg PO DAILY [facility] Last Admin: 04/10/17 09:02 Dose: 100 mg Montelukast Sodium (Singulair) 10 mg PO HS [facility] Last Admin: 04/09/17 22:22 Dose: 10 mg Ondansetron HCl (Zofran Inj) 4 mg IVP Q6H PRN PRN Reason: Nausea/Vomiting Pantoprazole Sodium (Protonix Ec Tab) 40 mg PO DAILY [facility] Last Admin: 04/10/17 09:02 Dose: 40 mg Pneumococcal Polyvalent Vaccine (Pneumovax 23 Vaccine) 0.5 ml IM .ONCE ONE Stop: 04/11/17 10:01 Pregabalin (Lyrica) 75 mg PO BID [facility] Last Admin: 04/10/17 17:48 Dose: 75 mg Rosuvastatin Calcium (Crestor) 5 mg PO [facility] Last Admin: 04/09/17 22:22 Dose: 5 mg Fluticasone/Salmeterol (Advair Diskus 500/50) 1 puff IH DAILY [facility] Zolpidem Tartrate (Ambien) 5 mg PO [facility] Last Admin: 04/09/17 22:22 Dose: 5 mg - Labs Labs: 04/10/17 07:40 04/10/17 07:40 Attending/Attestation - Attestation I have personally seen and examined this patient.: Yes I have fully participated in the care of the patient.: Yes I have reviewed all pertinent clinical information, including history, physical exam and plan: Yes Notes (Text): Patient seen, examined and case discussed with day-time resident. Patient reports abdominal pain is less, tolerated liquid diet. Patient's diet advanced to soft, heart healthy. Patient having recurrent urinary tract symptoms since 03/02/17; as outpatient, she reports she has attempted Bactrim twice but has not had relief. She reports she has seen Dr. Melo (urology) given Macrobid? but has not had relief. Patient's urine culture is showing gram negative leona; awaiting speciation because patient's number of drug allergies may need to optimize IV antibiotics to cover urinary tract infection or refer to infectious disease in interim. Patient as outpatient does see Dr. Smith; discussed with Dr. Whittaker who is covering GI service this weekend. Assessment/Plan 1) Diverticulitis * Afebrile, no leukocytosis, vitals stable * Advanced diet to soft, heart healthy * started on Maalox Q6h PRN for heartburn * Seen by Dr Medina, GI: "Patient is feeling better after starting with IV antibiotics. Has multiple medical alleregies and reactions. Would treat for 10- 14 days and then plan colonoscopy which was due in 8-12 weeks. Advance diet when pain has improved and exam is benign" * Clindamycin 300 Q8H and Aztreonam 2gm Q8H (Started on 04/07/17 due to multiple allergies, allergy to bactrim) * CT AB & P w/o IV contrast: Colonic diverticula. Evaluation of bowel limited without enteric contrast. Question slight increased. mesenteric markings adjacent to colonic diverticulum in the rectosigmoid region, axial image 66,. cannot exclude mild diverticulitis. Partial visualization of approximately 2 mm nodule in the right lower lobe visualized on the 1st image. on this study. Additional 2 mm nodule in the right lower lobe on image 2. Again noted is a low density lesion in the right lobe of the liver measuring approximately 7 cm in. maximal dimension, 2015 study not available for comparison at time of report. Additional. subcentimeter low-attenuation lesion noted inferior to this , unchanged from 2014. Please correlate. with prior imaging diagnosis. Prior reports have recommended followup MRI/ultrasound. Gallstone in the gallbladder without CT evidence of acute cholecystitis. Evidence of subcentimeter hypoattenuating nodule in the left adrenal gland, unchanged from prior. study in 2013. Please see additional details/findings as above. Correlate clinically. Followup as warranted. * GI consult- Dr. Loza - help appreciated 2) Complicated Urinary Tract Infection * Has failed outpatient therapy multiple times; currently on IV antibiotics * Renal Ultrasound: No evidence of urinary tract obstruction. Unremarkable examination. * UA: + nitrate, + LE * IV abx: Clindamycin 300 Q8H and Aztreonam 2gm Q8H (due to multiple allergies) (Active since 04/07/17) * Urine culture- prelim- gram positive cocci- awaiting sensitivities 3) History of Hypertension * Resumed home medications: Avalide 1 tab po daily (Irbesartan and hctz) * HCTZ 25mg PO daily * Cozaar 100mg PO daily * Monitor and adjust 4) History of Hypothyroidism * Resumed home medications: Synthroid 112 mcg PO daily 5) History of Hyperlipidemia * Resumed home medications: Crestor 5 mg PO QHS 6) History of COPD * Resumed home medications: Duoneb 3ml RQ6h PRN SOB, Singulair 10mg PO QHS, Advair diskus 500/50 1 puff inhaled Q12H 7) History of Seizure Disorder * Resumed home medications: Keppra 1250mg PO BID, Lyrica 75mg PO BID * Seizure precautions 8) History of GERD * Protonix 40mg IVP daily * Per Dr Smith, Amanda as needed 9) Hx of Hemangioma * Routinely monitored 10) Prophylactic Measures * GI PPX: Protonix 40mg IVP daily * DVT PPX: SCDs, Lovenox 40mg SC daily
[2017-04-11] MEDS: Aztreonam 2 GM in Sodium Chloride 0.9% 100 ML IVPB SCH ×3 (02:28→18:39)
[2017-04-11] MEDS: Clindamycin 300 MG in Sodium Chloride 0.9% 50 ML IVPB SCH ×3 (02:29→13:04)
[2017-04-11] MEDS: Levothyroxine 112 MCG TAB PO SCH (06:28)
[2017-04-11 08:25] LABS: BASO # 0.1 K/uL (0.0-0.2); BASO % 1.4 % (0.0-2.0); EOS # 0.4 K/uL (0.0-0.7); EOS % 7.1 % (0.0-4.0); HEMOGLOBIN 11.8 g/dL (11.0-16.0); LYMPH # 1.7 K/uL (1.0-4.3); MEAN CELL VOLUME 82.6 fL (81.0-99.0); MEAN CORPUSCULAR HEMOGLOBIN 27.9 pg (27.0-31.0); MEAN CORPUSCULAR HGB CONC 33.8 g/dL (33.0-37.0); MEAN PLATELET VOLUME 7.6 fL (7.2-11.7); MONO # 0.7 K/uL (0.0-0.8); NEUT # 2.7 K/uL (1.8-7.0); NEUT % 48.5 % (50.0-75.0); RBC 4.24 Mil/uL (3.80-5.20); RED CELL DISTRIBUTION WIDTH 14.3 % (11.5-14.5); WHITE BLOOD COUNT 5.6 K/uL (4.8-10.8)
[2017-04-11] MEDS: Fluticasone-Salmeterol 500-50mcg Diskus IH SCH ×2 (08:42→19:30)
[2017-04-11 08:58] LABS: ALBUMIN 3.5 g/dL (3.5-5.0)
[2017-04-11 09:00] LABS: AST/SGOT 35 U/L (14-36); GFR AFRICAN-AMERICAN > 60; GFR NON-AFRICAN AMERICAN > 60
[2017-04-11 09:01] LABS: ALB/GLOB RATIO 1.4 (1.0-2.1); ALT/SGPT 38 U/L (9-52); BLOOD UREA NITROGEN 6 mg/dL (7-17)
[2017-04-11 09:02] LABS: CALCIUM 9.5 mg/dl (8.6-10.4); MAGNESIUM 1.8 mg/dL (1.6-2.3)
[2017-04-11] MEDS: Enoxaparin 40 mg Syringe SC SCH (09:20)
[2017-04-11] MEDS: Pantoprazole 40 mg EC Tab PO SCH (09:21)
[2017-04-11] MEDS ORDERED: Pneumococcal 23-Valent Vaccine IM ONE (10:00)
--- NOTE | 2017-04-11 13:52 | CP.PCM.PN ---
<NattyRambo R - Last Filed: 04/11/17 18:07> Subjective - Date & Time of Evaluation Date of Evaluation: 04/11/17 Time of Evaluation: 09:00 - Subjective Subjective: Patient was seen and examined at bedside. Patient was not in acute distress. Patient stated that ate solid foods yesterday and once again had lower abdominal pain most prominent on the left side. She said she had been tolerating a liquid diet prior to eating solid foods yesterday. She also reports a "burning" pelvic pain. She denies dysuria, fever, chest pain, shortness of breath, nausea, vomiting, diarrhea. Objective - Vital Signs/Intake and Output Vital Signs (last 24 hours): Temp Pulse Resp BP Pulse Ox 97.7 F 77 20 116/68 95 04/11/17 08:45 04/11/17 08:45 04/11/17 08:45 04/11/17 08:45 04/11/17 08:45 Intake and Output: 04/11/17 04/11/17 06:59 18:59 Intake Total 1650 Output Total 3 Balance 1647 - Medications Medications: Current Medications Acetaminophen (Tylenol 325mg Tab) 650 mg PO Q6 PRN PRN Reason: Fever >100.4 F Acetaminophen (Tylenol 325mg Tab) 650 mg PO Q6 PRN PRN Reason: Pain, Mild (1-3) Al Hydrox/Mg Hydrox/Simethicone (Maalox 30 Ml) 30 ml PO Q6H PRN PRN Reason: Indigestion / Heartburn Last Admin: 04/10/17 21:05 Dose: 30 ml Albuterol/Ipratropium (Duoneb 3 Mg/0.5 Mg (3 Ml) Ud) 3 ml INH RQ6 PRN PRN Reason: Shortness of Breath Aspirin (Aspirin) 325 mg PO DAILY COUNTS [facility]CLUDE 234 BEDS AT [facility] Last Admin: 04/11/17 09:20 Dose: 325 mg Enoxaparin Sodium (Lovenox) 40 mg SC DAILY COUNTS INCLUDE 234 BEDS AT [facility] Last Admin: 04/11/17 09:20 Dose: 40 mg Hydrochlorothiazide (Hydrodiuril) 25 mg PO DAILY COUNTS INCLUDE 234 BEDS AT [facility] Last Admin: 04/11/17 09:21 Dose: 25 mg Aztreonam 2 gm/ Sodium (Chloride) 100 mls @ 200 mls/hr IVPB Q8H COUNTS INCLUDE 234 BEDS AT [facility] Last Admin: 04/11/17 09:34 Dose: 200 mls/hr Clindamycin Phosphate 300 mg/ (Sodium Chloride) 52 mls @ 104 mls/hr IVPB Q6H COUNTS INCLUDE 234 BEDS AT [facility] Last Admin: 04/11/17 13:04 Dose: 104 mls/hr Levetiracetam (Keppra) 1,000 mg PO BID COUNTS INCLUDE 234 BEDS AT [facility] Last Admin: 04/11/17 09:20 Dose: 1,000 mg Levetiracetam (Keppra) 250 mg PO BID COUNTS INCLUDE 234 BEDS AT [facility] Last Admin: 04/11/17 09:20 Dose: 250 mg Levothyroxine Sodium (Synthroid) 112 mcg PO DAILY@0630 COUNTS [facility]CLUDE 234 BEDS AT [facility] Last Admin: 04/11/17 06:28 Dose: 112 mcg Losartan Potassium (Cozaar) 100 mg PO DAILY COUNTS INCLUDE 234 BEDS AT [facility] Last Admin: 04/11/17 09:20 Dose: 100 mg Montelukast Sodium (Singulair) 10 mg PO [facility] Last Admin: 04/10/17 21:58 Dose: 10 mg Ondansetron HCl (Zofran Inj) 4 mg IVP Q6H PRN PRN Reason: Nausea/Vomiting Pantoprazole Sodium (Protonix Ec Tab) 40 mg PO DAILY COUNTS INCLUDE 234 BEDS AT [facility] Last Admin: 04/11/17 09:21 Dose: 40 mg Pregabalin (Lyrica) 75 mg PO BID COUNTS INCLUDE 234 BEDS AT [facility] Last Admin: 04/11/17 09:24 Dose: 75 mg Rosuvastatin Calcium (Crestor) 5 mg PO [facility] Last Admin: 04/10/17 21:58 Dose: 5 mg Fluticasone/Salmeterol (Advair Diskus 500/50) 1 puff IH RQ12 COUNTS INCLUDE 234 BEDS AT [facility] Last Admin: 04/11/17 08:42 Dose: Not Given Zolpidem Tartrate (Ambien) 5 mg PO [facility] Last Admin: 04/10/17 21:58 Dose: 5 mg - Labs Labs: 04/11/17 08:10 04/11/17 08:10 - Constitutional Appears: Well, No Acute Distress - Head Exam Head Exam: ATRAUMATIC, NORMAL INSPECTION, NORMOCEPHALIC - Eye Exam Eye Exam: EOMI, Normal appearance, PERRL - ENT Exam ENT Exam: Mucous Membranes Moist, Normal Exam - Neck Exam Neck Exam: Full ROM, Normal Inspection. absent: Lymphadenopathy - Respiratory Exam Respiratory Exam: Wheezes - Cardiovascular Exam Cardiovascular Exam: REGULAR RHYTHM, +S1, +S2. absent: Murmur - GI/Abdominal Exam GI & Abdominal Exam: Tenderness - Rectal Exam Rectal Exam: Deferred - Extremities Exam Extremities Exam: Full ROM, Normal Capillary Refill, Normal Inspection. absent : Joint Swelling, Pedal Edema - Back Exam Back Exam: NORMAL INSPECTION - Neurological Exam Neurological Exam: Alert, Awake, Oriented x3 - Psychiatric Exam Psychiatric exam: Normal Affect, Normal Mood - Skin Skin Exam: Dry, Intact, Normal Color, Warm Assessment and Plan - Assessment and Plan (Free Text) Assessment: 67 F with PMHx of HTN, Hypothyroidism, HLD, COPD, Seizure Disorder, GERD, and Hemangioma who presents to the ED with abdominal pain x 3 days. Plan: Diverticulitis 04/11: added torodol 30mg q6 prn for severe pain 04/11: tolerating diet, will keep on solid foods * Afebrile, no leukocytosis, vitals stable * Advanced diet to soft, heart healthy * started on Maalox Q6h PRN for heartburn * Seen by Dr Medina, GI: "Patient is feeling better after starting with IV antibiotics. Has multiple medical alleregies and reactions. Would treat for 10- 14 days and then plan colonoscopy which was due in 8-12 weeks. Advance diet when pain has improved and exam is benign" * Clindamycin 300 Q8H and Aztreonam 2gm Q8H (Started on 04/07/17 due to multiple allergies, allergy to bactrim) * CT AB & P w/o IV contrast: Colonic diverticula. Evaluation of bowel limited without enteric contrast. Question slight increased. mesenteric markings adjacent to colonic diverticulum in the rectosigmoid region, axial image 66,. cannot exclude mild diverticulitis. Partial visualization of approximately 2 mm nodule in the right lower lobe visualized on the 1st image. on this study. Additional 2 mm nodule in the right lower lobe on image 2. Again noted is a low density lesion in the right lobe of the liver measuring approximately 7 cm in. maximal dimension, 2014 study not available for comparison at time of report. Additional. subcentimeter low-attenuation lesion noted inferior to this , unchanged from 2014. Please correlate. with prior imaging diagnosis. Prior reports have recommended followup MRI/ultrasound. Gallstone in the gallbladder without CT evidence of acute cholecystitis. Evidence of subcentimeter hypoattenuating nodule in the left adrenal gland, unchanged from prior. study in 2014. Please see additional details/findings as above. Correlate clinically. Followup as warranted. * GI consult- Dr. Loza - help appreciated UTI * Renal Ultrasound 04/08: No evidence of urinary tract obstruction. Unremarkable examination. * UA: + nitrate, + LE * Started 04/07/17 on Clindamycin 300 Q8H and Aztreonam 2gm Q8H (due to multiple allergies) * Urine culture- prelim- gram positive cocci- awaiting sensitivities HTN * Resumed home medications: Avalide 1 tab po daily * HHD Hypothyroidism * Resumed home medications: Synthroid 112 mcg PO daily HLD * Resumed home medications: Crestor 5 mg PO QHS COPD * Resumed home medications: Duoneb PRN, Singulair 10mg PO QHS, Advair diskus Seizure Disorder * Resumed home medications: Keppra 1250mg PO BID, Lyrica 75mg PO BID GERD * Protonix 40mg IVP daily * Per Amanda Mccoy as needed Hx of Hemangioma * Routinely monitored Liver Nodule Liver nodule seen on CT f/u outpatient with MRI Lung Nodule Lung nodule seen on CT f/u outpatient with repeat CT in 6 months Prophylactic Measures * GI PPX: Protonix 40mg IVP daily * DVT PPX: SCDs, Lovenox 40mg SC daily <Jae Hernandez - Last Filed: 04/11/17 21:01> Objective - Vital Signs/Intake and Output Vital Signs (last 24 hours): Temp Pulse Resp BP Pulse Ox 98.3 F 67 20 130/78 95 04/11/17 16:00 04/11/17 16:00 04/11/17 16:00 04/11/17 16:00 04/11/17 16:00 Intake and Output: 04/11/17 04/12/17 18:59 06:59 Intake Total 600 Balance 600 - Medications Medications: Current Medications Acetaminophen (Tylenol 325mg Tab) 650 mg PO Q6 PRN PRN Reason: Fever >100.4 F Acetaminophen (Tylenol 325mg Tab) 650 mg PO Q6 PRN PRN Reason: Pain, Mild (1-3) Al Hydrox/Mg Hydrox/Simethicone (Maalox 30 Ml) 30 ml PO Q6H PRN PRN Reason: Indigestion / Heartburn Last Admin: 04/10/17 21:05 Dose: 30 ml Albuterol/Ipratropium (Duoneb 3 Mg/0.5 Mg (3 Ml) Ud) 3 ml INH RQ6 PRN PRN Reason: Shortness of Breath Aspirin (Aspirin) 325 mg PO DAILY COUNTS INCLUDE 234 BEDS AT [facility] Last Admin: 04/11/17 09:20 Dose: 325 mg Enoxaparin Sodium (Lovenox) 40 mg SC DAILY COUNTS INCLUDE 234 BEDS AT [facility] Last Admin: 04/11/17 09:20 Dose: 40 mg Hydrochlorothiazide (Hydrodiuril) 25 mg PO DAILY COUNTS INCLUDE 234 BEDS AT [facility] Last Admin: 04/11/17 09:21 Dose: 25 mg Aztreonam 2 gm/ Sodium (Chloride) 100 mls @ 200 mls/hr IVPB Q8H COUNTS INCLUDE 234 BEDS AT [facility] Last Admin: 04/11/17 18:39 Dose: 200 mls/hr Vancomycin/Sodium Chloride (Vancocin) 1 gm in 200 mls @ 100 mls/hr IVPB Q12H COUNTS INCLUDE 234 BEDS AT [facility] Stop: 04/16/17 20:01 Last Admin: 04/11/17 20:16 Dose: 100 mls/hr Ketorolac Tromethamine (Toradol) 15 mg IVP Q6 PRN PRN Reason: Pain, moderate (4-7) Last Admin: 04/11/17 18:41 Dose: 15 mg Ketorolac Tromethamine (Toradol) 30 mg IVP Q6 PRN PRN Reason: Pain, severe (8-10) Levetiracetam (Keppra) 1,000 mg PO BID COUNTS INCLUDE 234 BEDS AT [facility] Last Admin: 04/11/17 18:39 Dose: 1,000 mg Levetiracetam (Keppra) 250 mg PO BID COUNTS INCLUDE 234 BEDS AT [facility] Last Admin: 04/11/17 18:39 Dose: 250 mg Levothyroxine Sodium (Synthroid) 112 mcg PO DAILY@0630 COUNTS INCLUDE 234 BEDS AT [facility] Last Admin: 04/11/17 06:28 Dose: 112 mcg Losartan Potassium (Cozaar) 100 mg PO DAILY COUNTS INCLUDE 234 BEDS AT [facility] Last Admin: 04/11/17 09:20 Dose: 100 mg Montelukast Sodium (Singulair) 10 mg PO HS COUNTS INCLUDE 234 BEDS AT [facility] Last Admin: 04/10/17 21:58 Dose: 10 mg Ondansetron HCl (Zofran Inj) 4 mg IVP Q6H PRN PRN Reason: Nausea/Vomiting Pantoprazole Sodium (Protonix Ec Tab) 40 mg PO DAILY COUNTS INCLUDE 234 BEDS AT [facility] Last Admin: 04/11/17 09:21 Dose: 40 mg Pregabalin (Lyrica) 75 mg PO BID COUNTS INCLUDE 234 BEDS AT [facility] Last Admin: 04/11/17 18:39 Dose: 75 mg Rosuvastatin Calcium (Crestor) 5 mg PO HS COUNTS INCLUDE 234 BEDS AT [facility] Last Admin: 04/10/17 21:58 Dose: 5 mg Fluticasone/Salmeterol (Advair Diskus 500/50) 1 puff IH RQ12 COUNTS INCLUDE 234 BEDS AT [facility] Last Admin: 04/11/17 19:30 Dose: Not Given Zolpidem Tartrate (Ambien) 5 mg PO HS COUNTS INCLUDE 234 BEDS AT [facility] Last Admin: 04/10/17 21:58 Dose: 5 mg - Labs Labs: 04/11/17 08:10 04/11/17 08:10 Attending/Attestation - Attestation I have personally seen and examined this patient.: Yes I have fully participated in the care of the patient.: Yes I have reviewed all pertinent clinical information, including history, physical exam and plan: Yes Notes (Text): 04/11/17 20:57 Patient was seen and examined at 5:45 PM 04/11/17 History, Exam, and Assessment and Plan were thoroughly gone over with the Resident. Consult placed for Urology Dr. Al Melo at the request of patient who stated that Dr. Melo has followed her as an outpatient for her history of Chronic UTI and performed unspecified imaging last week of Kidneys and Bladder as per patient. Consult placed for ID Dr. Gamble considering the UTI in this patient who has multiple antibiotic allergies. I will speak with [employer] on 04/12/17 concerning patient qualification for [facility] or Transition Care Unit. Jae Hernandez D.O.
[2017-04-11] MEDS: Vancomycin 1 gm/NS 200 ml 1 GM/200 ML BAG IVPB SCH (20:16)
[2017-04-12] MEDS: Aztreonam 2 GM in Sodium Chloride 0.9% 100 ML IVPB SCH ×3 (02:04→17:47)
[2017-04-12] MEDS: Levothyroxine 112 MCG TAB PO SCH (06:16)
[2017-04-12 07:12] LABS: ALBUMIN 3.1 g/dL (3.5-5.0)
[2017-04-12 07:15] LABS: ALB/GLOB RATIO 1.4 (1.0-2.1); AST/SGOT 38 U/L (14-36); BASO # 0.1 K/uL (0.0-0.2); BASO % 1.3 % (0.0-2.0); EOS # 0.4 K/uL (0.0-0.7); EOS % 7.9 % (0.0-4.0); GFR AFRICAN-AMERICAN > 60; GFR NON-AFRICAN AMERICAN > 60; HEMOGLOBIN 10.8 g/dL (11.0-16.0); LYMPH # 1.7 K/uL (1.0-4.3); LYMPH % 32.4 % (20.0-40.0); MEAN CELL VOLUME 82.8 fL (81.0-99.0); MEAN CORPUSCULAR HEMOGLOBIN 27.4 pg (27.0-31.0); MEAN CORPUSCULAR HGB CONC 33.1 g/dL (33.0-37.0); MEAN PLATELET VOLUME 7.9 fL (7.2-11.7); MONO # 0.7 K/uL (0.0-0.8); MONO % 12.7 % (0.0-10.0); NEUT # 2.4 K/uL (1.8-7.0); NEUT % 45.7 % (50.0-75.0); NRBC % 0.1 % (0.0-2.0); RBC 3.95 Mil/uL (3.80-5.20); RED CELL DISTRIBUTION WIDTH 14.7 % (11.5-14.5); WHITE BLOOD COUNT 5.2 K/uL (4.8-10.8)
[2017-04-12 07:16] LABS: ALT/SGPT 45 U/L (9-52); BLOOD UREA NITROGEN 8 mg/dL (7-17); MAGNESIUM 1.6 mg/dL (1.6-2.3)
[2017-04-12] MEDS: Vancomycin 1 gm/NS 200 ml 1 GM/200 ML BAG IVPB SCH ×2 (08:14→20:04)
[2017-04-12] MEDS: Fluticasone-Salmeterol 500-50mcg Diskus IH SCH ×2 (08:27→20:07)
[2017-04-12] MEDS: Pantoprazole 40 mg EC Tab PO SCH (11:04)
--- NOTE | 2017-04-12 11:12 | CP.PCM.PN ---
<NattyRambo Aditya - Last Filed: 04/12/17 18:44> Subjective - Date & Time of Evaluation Date of Evaluation: 04/12/17 Time of Evaluation: 10:00 - Subjective Subjective: Patient seen and examined at bedside. Patient currently stable. States much improvement in her diet as of yesterday. She says she has been able to tolerate solid foods without any immediate issue. Last BM was last night and described to be slightly loose in character. Patient now able to urinate without any dysuria or hematuria. Pain well-controlled, currently 0/10. Patient denies any chest pain, SOB, n/v, fever, chills, abdominal pain or leg pain. Agrees with current plan and management. No other complaints are noted at this time. Objective - Vital Signs/Intake and Output Vital Signs (last 24 hours): Temp Pulse Resp BP Pulse Ox 97.8 F 83 20 121/56 L 93 L 04/12/17 08:00 04/12/17 08:00 04/12/17 08:00 04/12/17 08:00 04/12/17 08:00 Intake and Output: 04/12/17 04/12/17 06:59 18:59 Intake Total 900 Balance 900 - Medications Medications: Current Medications Acetaminophen (Tylenol 325mg Tab) 650 mg PO Q6 PRN PRN Reason: Fever >100.4 F Acetaminophen (Tylenol 325mg Tab) 650 mg PO Q6 PRN PRN Reason: Pain, Mild (1-3) Al Hydrox/Mg Hydrox/Simethicone (Maalox 30 Ml) 30 ml PO Q6H PRN PRN Reason: Indigestion / Heartburn Last Admin: 04/10/17 21:05 Dose: 30 ml Albuterol/Ipratropium (Duoneb 3 Mg/0.5 Mg (3 Ml) Ud) 3 ml INH RQ6 PRN PRN Reason: Shortness of Breath Aspirin (Aspirin) 325 mg PO DAILY [facility] Last Admin: 04/12/17 11:04 Dose: 325 mg Enoxaparin Sodium (Lovenox) 40 mg SC DAILY [facility] Last Admin: 04/11/17 09:20 Dose: 40 mg Hydrochlorothiazide (Hydrodiuril) 25 mg PO DAILY [facility] Last Admin: 04/12/17 11:04 Dose: 25 mg Aztreonam 2 gm/ Sodium (Chloride) 100 mls @ 200 mls/hr IVPB Q8H [facility] Last Admin: 04/12/17 11:05 Dose: 200 mls/hr Vancomycin/Sodium Chloride (Vancocin) 1 gm in 200 mls @ 100 mls/hr IVPB Q12H [facility] Stop: 04/16/17 20:01 Last Admin: 04/12/17 08:14 Dose: 100 mls/hr Ketorolac Tromethamine (Toradol) 15 mg IVP Q6 PRN PRN Reason: Pain, moderate (4-7) Last Admin: 04/11/17 18:41 Dose: 15 mg Ketorolac Tromethamine (Toradol) 30 mg IVP Q6 PRN PRN Reason: Pain, severe (8-10) Levetiracetam (Keppra) 1,000 mg PO Q12H [facility] Last Admin: 04/12/17 09:37 Dose: 1,000 mg Levetiracetam (Keppra) 250 mg PO Q12H [facility] Last Admin: 04/12/17 09:37 Dose: 250 mg Levothyroxine Sodium (Synthroid) 112 mcg PO DAILY@0630 [facility] Last Admin: 04/12/17 06:16 Dose: 112 mcg Losartan Potassium (Cozaar) 100 mg PO DAILY [facility] Last Admin: 04/12/17 11:04 Dose: 100 mg Montelukast Sodium (Singulair) 10 mg PO QPM [facility] Ondansetron HCl (Zofran Inj) 4 mg IVP Q6H PRN PRN Reason: Nausea/Vomiting Pantoprazole Sodium (Protonix Ec Tab) 40 mg PO DAILY [facility] Last Admin: 04/12/17 11:04 Dose: 40 mg Potassium Chloride (K-Dur 20 Meq Er Tab) 40 meq PO ONCE ONE Stop: 04/12/17 11:16 Pregabalin (Lyrica) 75 mg PO Q12H [facility] Last Admin: 04/12/17 08:14 Dose: 75 mg Rosuvastatin Calcium (Crestor) 5 mg PO HS [facility] Last Admin: 04/11/17 21:19 Dose: 5 mg Fluticasone/Salmeterol (Advair Diskus 500/50) 1 puff IH RQ12 [facility] Last Admin: 04/12/17 08:27 Dose: 1 puff Zolpidem Tartrate (Ambien) 5 mg PO HS [facility] Last Admin: 04/11/17 21:55 Dose: 5 mg - Labs Labs: 04/12/17 06:57 04/12/17 06:57 - Constitutional Appears: Well - Head Exam Head Exam: ATRAUMATIC, NORMAL INSPECTION, NORMOCEPHALIC - Eye Exam Eye Exam: EOMI, Normal appearance, PERRL - ENT Exam ENT Exam: Mucous Membranes Moist, Normal Exam - Neck Exam Neck Exam: Full ROM, Normal Inspection. absent: Lymphadenopathy - Respiratory Exam Respiratory Exam: Clear to Ausculation Bilateral, NORMAL BREATHING PATTERN - Cardiovascular Exam Cardiovascular Exam: REGULAR RHYTHM, +S1, +S2. absent: Murmur - GI/Abdominal Exam GI & Abdominal Exam: Soft, Normal Bowel Sounds. absent: Tenderness - Rectal Exam Rectal Exam: Deferred - Extremities Exam Extremities Exam: Full ROM, Normal Capillary Refill, Normal Inspection. absent : Joint Swelling, Pedal Edema - Neurological Exam Neurological Exam: Alert, Awake, Oriented x3 - Psychiatric Exam Psychiatric exam: Normal Affect, Normal Mood - Skin Additional comments: 3-4cm circular ecchymosis in RLQ Assessment and Plan - Assessment and Plan (Free Text) Assessment: Diverticulitis 04/12: discontinued clindamycin 300mg q8. Started vancomycin 1gm iv qd to cover gram positive bacteria in the urine. Aztrenam will remain to cover colonic bacteria for diverticulitis 04/12: K+ 3.3 -> gave Kdur 40meq 04/11: added torodol 30mg q6 prn for severe pain 04/11: tolerating diet, will keep on solid foods * Afebrile, no leukocytosis, vitals stable * Advanced diet to soft, heart healthy * started on Maalox Q6h PRN for heartburn * Seen by Dr Medina, GI: "Patient is feeling better after starting with IV antibiotics. Has multiple medical alleregies and reactions. Would treat for 10- 14 days and then plan colonoscopy which was due in 8-12 weeks. Advance diet when pain has improved and exam is benign" * Clindamycin 300 Q8H and Aztreonam 2gm Q8H (Started on 04/07/17 due to multiple allergies, allergy to bactrim) * CT AB & P w/o IV contrast: Colonic diverticula. Evaluation of bowel limited without enteric contrast. Question slight increased. mesenteric markings adjacent to colonic diverticulum in the rectosigmoid region, axial image 66,. cannot exclude mild diverticulitis. Partial visualization of approximately 2 mm nodule in the right lower lobe visualized on the 1st image. on this study. Additional 2 mm nodule in the right lower lobe on image 2. Again noted is a low density lesion in the right lobe of the liver measuring approximately 7 cm in. maximal dimension, 2015 study not available for comparison at time of report. Additional. subcentimeter low-attenuation lesion noted inferior to this , unchanged from 2014. Please correlate. with prior imaging diagnosis. Prior reports have recommended followup MRI/ultrasound. Gallstone in the gallbladder without CT evidence of acute cholecystitis. Evidence of subcentimeter hypoattenuating nodule in the left adrenal gland, unchanged from prior. study in 2013. Please see additional details/findings as above. Correlate clinically. Followup as warranted. * GI consult- Dr. Loza - help appreciated UTI 04/12: discontinued clindamycin 300mg q8. Started vancomycin 1gm iv qd to cover gram positive bacteria in the urine 04/12: Consulted Dr Borja as Dr Melo does not see hospital patients. Will get in touch with Dr Melo tomorrow to collect any prior imaging. 04/12: Urine culture- Final -> gram positive cocci- sensitivies will not be performed (per photographic laboratory technician, sensitivities not performed on cultures with bacteria <50,000 CFU/mL) 04/11: Urology consult, Dr Melo, consulted. Dr Melo follows patient outpatient for her history of chornic UTI. 04/11: ID consulted, Dr Gamble, for patient's multiple antibiotic allergies * Renal Ultrasound 04/08: No evidence of urinary tract obstruction. Unremarkable examination. * UA: + nitrate, + LE * Started 04/07/17 on Clindamycin 300 Q8H and Aztreonam 2gm Q8H (due to multiple allergies) HTN * Resumed home medications: Avalide 1 tab po daily * HHD Hypothyroidism * Resumed home medications: Synthroid 112 mcg PO daily HLD * Resumed home medications: Crestor 5 mg PO QHS COPD * Resumed home medications: Duoneb PRN, Singulair 10mg PO QHS, Advair diskus Seizure Disorder * Resumed home medications: Keppra 1250mg PO BID, Lyrica 75mg PO BID GERD * Protonix 40mg IVP daily * Per Dr Smith Carafate as needed Hx of Hemangioma * Routinely monitored Liver Nodule 7 cm Liver nodule seen on CT f/u outpatient with MRI Lung Nodule 2mm Lung nodule seen on CT f/u outpatient with repeat CT in 6 months Prophylactic Measures * GI PPX: Protonix 40mg IVP daily * DVT PPX: SCDs, Lovenox 40mg SC daily Disposition: Planning for PICC placement and FABI to complete abx treatment. Will discuss with Dr Gamble regarding length of abx treatment. <Jae Hernandez - Last Filed: 04/12/17 20:45> Objective - Vital Signs/Intake and Output Vital Signs (last 24 hours): Temp Pulse Resp BP Pulse Ox 97.6 F 82 20 154/87 H 97 04/12/17 16:00 04/12/17 16:00 04/12/17 16:00 04/12/17 16:00 04/12/17 16:00 Intake and Output: 04/12/17 04/13/17 18:59 06:59 Intake Total 660 Balance 660 - Medications Medications: Current Medications Acetaminophen (Tylenol 325mg Tab) 650 mg PO Q6 PRN PRN Reason: Fever >100.4 F Acetaminophen (Tylenol 325mg Tab) 650 mg PO Q6 PRN PRN Reason: Pain, Mild (1-3) Al Hydrox/Mg Hydrox/Simethicone (Maalox 30 Ml) 30 ml PO Q6H PRN PRN Reason: Indigestion / Heartburn Last Admin: 04/10/17 21:05 Dose: 30 ml Albuterol/Ipratropium (Duoneb 3 Mg/0.5 Mg (3 Ml) Ud) 3 ml INH RQ6 PRN PRN Reason: Shortness of Breath Aspirin (Aspirin) 325 mg PO DAILY [facility] Last Admin: 04/12/17 11:04 Dose: 325 mg Enoxaparin Sodium (Lovenox) 40 mg SC DAILY [facility] Last Admin: 04/12/17 13:10 Dose: 40 mg Hydrochlorothiazide (Hydrodiuril) 25 mg PO DAILY [facility] Last Admin: 04/12/17 11:04 Dose: 25 mg Aztreonam 2 gm/ Sodium (Chloride) 100 mls @ 200 mls/hr IVPB Q8H [facility] Last Admin: 04/12/17 17:47 Dose: 200 mls/hr Vancomycin/Sodium Chloride (Vancocin) 1 gm in 200 mls @ 100 mls/hr IVPB Q12H [facility] Stop: 04/16/17 20:01 Last Admin: 04/12/17 20:04 Dose: 100 mls/hr Ketorolac Tromethamine (Toradol) 15 mg IVP Q6 PRN PRN Reason: Pain, moderate (4-7) Last Admin: 04/11/17 18:41 Dose: 15 mg Ketorolac Tromethamine (Toradol) 30 mg IVP Q6 PRN PRN Reason: Pain, severe (8-10) Last Admin: 04/12/17 20:00 Dose: 30 mg Levetiracetam (Keppra) 1,000 mg PO Q12H [facility] Last Admin: 04/12/17 09:37 Dose: 1,000 mg Levetiracetam (Keppra) 250 mg PO Q12H [facility] Last Admin: 04/12/17 09:37 Dose: 250 mg Levothyroxine Sodium (Synthroid) 112 mcg PO DAILY@0630 [facility] Last Admin: 04/12/17 06:16 Dose: 112 mcg Losartan Potassium (Cozaar) 100 mg PO DAILY [facility] Last Admin: 04/12/17 11:04 Dose: 100 mg Montelukast Sodium (Singulair) 10 mg PO QPM [facility] Last Admin: 04/12/17 17:46 Dose: 10 mg Ondansetron HCl (Zofran Inj) 4 mg IVP Q6H PRN PRN Reason: Nausea/Vomiting Pantoprazole Sodium (Protonix Ec Tab) 40 mg PO DAILY [facility] Last Admin: 04/12/17 11:04 Dose: 40 mg Pregabalin (Lyrica) 75 mg PO Q12H [facility] Last Admin: 04/12/17 20:05 Dose: 75 mg Rosuvastatin Calcium (Crestor) 5 mg PO [facility] Last Admin: 04/11/17 21:19 Dose: 5 mg Fluticasone/Salmeterol (Advair Diskus 500/50) 1 puff IH RQ12 [facility] Last Admin: 04/12/17 20:07 Dose: Not Given Zolpidem Tartrate (Ambien) 5 mg PO [facility] Last Admin: 04/11/17 21:55 Dose: 5 mg - Labs Labs: 04/12/17 06:57 04/12/17 06:57 Attending/Attestation - Attestation I have personally seen and examined this patient.: Yes I have fully participated in the care of the patient.: Yes I have reviewed all pertinent clinical information, including history, physical exam and plan: Yes Notes (Text): 04/12/17 20:43 Patient was seen and examined at 6:45 PM Exam, Assessment and Plan were thoroughly gone over with the Resident Urologist Dr. Melo does not come to [facility] therefore Urologist Dr. Gladys Negron was consulted for the frequent UTIs. I spoke with [employer] Teacher Linda who is arranging [facility]. Patient was also thoroughly informed as to plan and once patient is ready for discharge to [facility], her PMD Dr. Hernandez will be notified. Jae Hernandez D.O.
[2017-04-12] MEDS ORDERED: Potassium Chloride 20 mEq ER Tab PO ONE (11:15)
--- NOTE | 2017-04-12 11:51 | CP.PCM.PN ---
Subjective - Date & Time of Evaluation Date of Evaluation: 04/12/17 Time of Evaluation: 11:47 - Subjective Subjective: Pain is improved and tolerating po diet today No bleeding or melena. Heartburn. Objective - Vital Signs/Intake and Output Vital Signs (last 24 hours): Temp Pulse Resp BP Pulse Ox 97.8 F 83 20 121/56 L 93 L 04/12/17 08:00 04/12/17 08:00 04/12/17 08:00 04/12/17 08:00 04/12/17 08:00 Intake and Output: 04/12/17 04/12/17 06:59 18:59 Intake Total 900 Balance 900 - Medications Medications: Current Medications Acetaminophen (Tylenol 325mg Tab) 650 mg PO Q6 PRN PRN Reason: Fever >100.4 F Acetaminophen (Tylenol 325mg Tab) 650 mg PO Q6 PRN PRN Reason: Pain, Mild (1-3) Al Hydrox/Mg Hydrox/Simethicone (Maalox 30 Ml) 30 ml PO Q6H PRN PRN Reason: Indigestion / Heartburn Last Admin: 04/10/17 21:05 Dose: 30 ml Albuterol/Ipratropium (Duoneb 3 Mg/0.5 Mg (3 Ml) Ud) 3 ml INH RQ6 PRN PRN Reason: Shortness of Breath Aspirin (Aspirin) 325 mg PO DAILY [facility] Last Admin: 04/12/17 11:04 Dose: 325 mg Enoxaparin Sodium (Lovenox) 40 mg SC DAILY [facility] Last Admin: 04/11/17 09:20 Dose: 40 mg Hydrochlorothiazide (Hydrodiuril) 25 mg PO DAILY [facility] Last Admin: 04/12/17 11:04 Dose: 25 mg Aztreonam 2 gm/ Sodium (Chloride) 100 mls @ 200 mls/hr IVPB Q8H [facility] Last Admin: 04/12/17 11:05 Dose: 200 mls/hr Vancomycin/Sodium Chloride (Vancocin) 1 gm in 200 mls @ 100 mls/hr IVPB Q12H [facility] Stop: 04/16/17 20:01 Last Admin: 04/12/17 08:14 Dose: 100 mls/hr Ketorolac Tromethamine (Toradol) 15 mg IVP Q6 PRN PRN Reason: Pain, moderate (4-7) Last Admin: 04/11/17 18:41 Dose: 15 mg Ketorolac Tromethamine (Toradol) 30 mg IVP Q6 PRN PRN Reason: Pain, severe (8-10) Levetiracetam (Keppra) 1,000 mg PO Q12H [facility] Last Admin: 04/12/17 09:37 Dose: 1,000 mg Levetiracetam (Keppra) 250 mg PO Q12H [facility] Last Admin: 04/12/17 09:37 Dose: 250 mg Levothyroxine Sodium (Synthroid) 112 mcg PO DAILY@0630 [facility] Last Admin: 04/12/17 06:16 Dose: 112 mcg Losartan Potassium (Cozaar) 100 mg PO DAILY [facility] Last Admin: 04/12/17 11:04 Dose: 100 mg Montelukast Sodium (Singulair) 10 mg PO QPM [facility] Ondansetron HCl (Zofran Inj) 4 mg IVP Q6H PRN PRN Reason: Nausea/Vomiting Pantoprazole Sodium (Protonix Ec Tab) 40 mg PO DAILY [facility] Last Admin: 04/12/17 11:04 Dose: 40 mg Pregabalin (Lyrica) 75 mg PO Q12H [facility] Last Admin: 04/12/17 08:14 Dose: 75 mg Rosuvastatin Calcium (Crestor) 5 mg PO [facility] Last Admin: 04/11/17 21:19 Dose: 5 mg Fluticasone/Salmeterol (Advair Diskus 500/50) 1 puff IH RQ12 [facility] Last Admin: 04/12/17 08:27 Dose: 1 puff Zolpidem Tartrate (Ambien) 5 mg PO [facility] Last Admin: 04/11/17 21:55 Dose: 5 mg - Labs Labs: 04/12/17 06:57 04/12/17 06:57 - Constitutional Appears: No Acute Distress - Head Exam Head Exam: ATRAUMATIC, NORMOCEPHALIC - Eye Exam Eye Exam: EOMI, PERRL - Respiratory Exam Respiratory Exam: NORMAL BREATHING PATTERN - Cardiovascular Exam Cardiovascular Exam: REGULAR RHYTHM - GI/Abdominal Exam GI & Abdominal Exam: Soft, Tenderness, Normal Bowel Sounds. absent: Distended, Guarding, Mass, Organomegaly, Rebound - Extremities Exam Extremities Exam: Normal Inspection Assessment and Plan (1) GERD (gastroesophageal reflux disease) Assessment & Plan: Continue PPI and Carafate as needed Status: Acute (2) LLQ pain Assessment & Plan: Improving Status: Acute (3) H/O adenomatous polyp of colon Status: Chronic (4) Diverticulitis Assessment & Plan: Continue antibiotic for a full 10-14 day course Colonoscopy to be planned in 8-12 weeks when clinically resolved consider repeat CT SCan if pain worsens or recurs. Status: Acute (5) Recurrent UTI Status: Acute
[2017-04-12] MEDS: Enoxaparin 40 mg Syringe SC SCH ×2 (12:06→13:10)
--- NOTE | 2017-04-12 21:51 | CP.PCM.CON ---
History of Present Illness - History of Present Illness History of Present Illness: Patient is 67yr old female with h/o of HTN,hypothyroidism,seizure disorder,HLD, COPD,GERD,Hemangioma who was admitted with abdominal pain in left lower quadrant with no radiation patient was being treated for diverticulitis and she says it is lot better but she has now dysuria and pain in suprapubic area. She also tell me that in January she had bactrim for 10 days for uti and then her symptoms returned again in March and then with bactrim she developed a severe allergic rash and had to stop it.She now has similar symptoms of dysuria and pelvic pain and is concerned. She also is allergic to iodine but says had a ctscan yesterday waiting for results . PMHx: HTN, Hypothyroidism, HLD, Seizure Disorder, COPD, GERD, Hemangioma PSHx: Hysterectomy, implanted lens in both eyes Meds: As per DEC All: As noted above SHx: Stopped smoking 30 years ago, denied any alcohol or illicit drug use FHx: Non contributory Review of Systems - Constitutional Constitutional: absent: As Per HPI, Anorexia, Chills, Daytime Sleepiness, Excessive Sweating, Fatigue, Fever, Frequent Falls, Headache, Increased Appetite , Lethargy, Malaise, Night Sweats, Snoring, Sleep Apnea, Weight Gain, Weight Loss, Weakness, Other - EENT Eyes: absent: As Per HPI, Blind Spots, Blurred Vision, Change in Vision, Decreased Night Vision, Diplopia, Discharge, Dry Eye, Exophthalmos, Floaters, Irritation, Itchy Eyes, Loss of Peripheral Vision, Pain, Photophobia, Requires Corrective Lenses, Sees Flashes, Spots in Vision, Tunnel Vision, Other Visual Disturbances, Loss of Vision, Other Nose/Mouth/Throat: absent: As Per HPI, Epistaxis, Nasal Congestion, Nasal Discharge, Nasal Obstruction, Nasal Trauma, Nose Pain, Post Nasal Drip, Sinus Pain, Sinus Pressure, Bleeding Gums, Change in Voice, Dental Pain, Dry Mouth, Dysphagia, Halitosis, Hoarsness, Lip Swelling, Mouth Lesions, Mouth Pain, Odynophagia, Sore Throat, Throat Swelling, Tongue Swelling, Facial Pain, Neck Pain, Neck Mass, Other - Cardiovascular Cardiovascular: absent: As Per HPI, Acrocyanosis, Chest Pain, Chest Pain at Rest , Chest Pain with Activity, Claudication, Diaphoresis, Dyspnea, Dyspnea on Exertion, Edema, Irregular Heart Rhythm, Pain Radiating to Arm/Neck/Jaw, Leg Edema, Leg Ulcers, Lightheadedness, Orthopnea, Palpitations, Paroxysmal Nocturnal Dyspnea, Pedal Edema, Radiating Pain, Rapid Heart Rate, Slow Heart Rate, Syncope, Other - Respiratory Respiratory: absent: As Per HPI, Cough, Dyspnea, Hemoptysis, Dyspnea on Exertion , Wheezing, Snoring, Stridor, Pain on Inspiration, Chest Congestion, Excessive Mucous Production, Change in Mucous Color, Pain with Coughing, Other - Gastrointestinal Gastrointestinal: Abdominal Pain. absent: As Per HPI, Belching, Bloating, Change in Bowel Habits, Change in Stool Character, Coffee Ground Emesis, Constipation, Cramping, Diarrhea, Dyspepsia, Dysphagia, Early Satiety, Excessive Flatus, Fecal Incontinence, Heartburn, Hematemesis, Hematochezia, Loose Stools, Melena, Nausea, Odynophagia, Temesmus, Vomiting, Other - Genitourinary Genitourinary: Dysuria, Urinary Frequency. absent: As Per HPI, Change in Urinary Stream, Difficulty Urinating, Flank Pain, Hematuria, Pyuria, Nocturia, Urinary Incontinence, Urinary Hesitance, Urinary Urgency, Voiding Freq/Small Amts, Freq UTI, Hx Renal/Bladder Calculi, Hx /Renal Surgery, Bladder Distension, Other Additional comments: suprapubic pain - Reproductive: Female Reproductive:Female: Post Menopausal - Musculoskeletal Musculoskeletal: absent: As Per HPI, Abnormal Gait, Arthralgias, Atrophy, Back Pain, Deformity, Joint Swelling, Limited Range of Motion, Loss of Height, Muscle Cramps, Muscle Weakness, Myalgias, Neck Pain, Numbness, Radiating Pain into Limb, Stiffness, Tingling, Other - Integumentary Integumentary: absent: As Per HPI, Acne, Alopecia, Bleeding Lesions, Change in Hair, Change in Nails, Change in Pigmentation, Changing Lesions, Dry Skin, Erythema, Furuncle, Hirsutism, Lesions, New Lesions, Non-Healing Lesions, Photosensitivity, Pruritus, Rash, Skin Pain, Skin Ulcer, Sores, Striae, Swelling , Unusual Bruising, Wounds, Jaundice, Other - Neurological Neurological: absent: As Per HPI, Abnormal Gait, Abnormal Hearing, Abnormal Movements, Abnormal Speech, Behavioral Changes, Burning Sensations, Confusion, Convulsions, Disequilibrium, Dizziness, Numbness, Focal Weakness, Frequent Falls , Headaches, Lack of Coordination, Loss of Vision, Memory Loss, Paresthesias, Radicular Pain, Restless Legs, Sensory Deficit, Syncope, Tingling, Tremor, Vertigo, Weakness, Other Visual Disturbances, Other Past Patient History - Infectious Disease Hx of Infectious Diseases: None - Past Medical History & Family History Past Medical History?: Yes - Past Social History Smoking Status: Former Smoker - CARDIAC Hx Hypercholesterolemia: Yes Hx Hypertension: Yes - PULMONARY Hx Asthma: Yes Hx Chronic Obstructive Pulmonary Disease (COPD): Yes - NEUROLOGICAL Hx Seizures: Yes (LAST SEIZURE 2011) - HEENT Hx HEENT Problems: No Other/Comment: implanted LENS to both eyes - RENAL Hx Chronic Kidney Disease: No - ENDOCRINE/METABOLIC Hx Endocrine Disorders: No - HEMATOLOGICAL/ONCOLOGICAL Hx Blood Disorders: No Hx Cirrhosis: No Hx Hepatitis A: No Hx Hepatitis B: No Hx Hepatitis C: No Hx Human Immunodeficiency Virus (HIV): No Other/Comment: mass to right side of liver - INTEGUMENTARY Hx Dermatological Problems: No - MUSCULOSKELETAL/RHEUMATOLOGICAL Hx Musculoskeletal Disorders: Yes - GASTROINTESTINAL Hx Gastrointestinal Disorders: Yes Hx Bowel Surgery: No Hx Clostridium Difficile: No Hx Colitis: No Hx Colostomy: No Hx Diverticulitis: Yes (Diverticulosis) Hx Fatty Liver Disease: Yes ( RIGHT LOBE LIVER HEMANGIOMA) Hx Gastritis: Yes Hx Gastroesophageal Reflux: Yes Hx Hemorrhoids: Yes Hx Ileostomy: No Hx Irritable Bowel: No Hx Liver Failure: No Hx Nausea: No Hx Pancreatitis: No HX Swallowing Problems: No Hx Ulcer: No Hx Vomiting: No Other/Comment: hepatic hemangioma right lobe. h/o colon polyps - GENITOURINARY/GYNECOLOGICAL Hx Genitourinary Disorders: No - PSYCHIATRIC Hx Substance Use: No - SURGICAL HISTORY Hx Appendectomy: Yes (3 YRS. OLD) - ANESTHESIA Hx Anesthesia: Yes Hx Anesthesia Reactions: No Hx Malignant Hyperthermia: No Meds Allergies/Adverse Reactions: Allergies Allergy/AdvReac Type Severity Reaction Status Date / Time amoxicillin [From Augmentin] Allergy Verified 04/07/17 20:36 ciprofloxacin [From Cipro] Allergy Verified 04/07/17 20:36 clavulanic acid Allergy Verified 04/07/17 20:36 [From Augmentin] iodine Allergy Verified 04/07/17 20:36 levofloxacin [From Levaquin] Allergy Verified 04/07/17 20:36 metronidazole [From Flagyl] Allergy Verified 04/07/17 20:36 sulfamethoxazole Allergy Verified 04/07/17 20:36 [From Bactrim] theophylline Allergy Verified 04/07/17 20:36 trimethoprim [From Bactrim] Allergy Verified 04/07/17 20:36 - Medications Medications: Current Medications Acetaminophen (Tylenol 325mg Tab) 650 mg PO Q6 PRN PRN Reason: Fever >100.4 F Acetaminophen (Tylenol 325mg Tab) 650 mg PO Q6 PRN PRN Reason: Pain, Mild (1-3) Al Hydrox/Mg Hydrox/Simethicone (Maalox 30 Ml) 30 ml PO Q6H PRN PRN Reason: Indigestion / Heartburn Last Admin: 04/10/17 21:05 Dose: 30 ml Albuterol/Ipratropium (Duoneb 3 Mg/0.5 Mg (3 Ml) Ud) 3 ml INH RQ6 PRN PRN Reason: Shortness of Breath Aspirin (Aspirin) 325 mg PO DAILY [facility] Last Admin: 04/12/17 11:04 Dose: 325 mg Enoxaparin Sodium (Lovenox) 40 mg SC DAILY [facility] Last Admin: 04/12/17 13:10 Dose: 40 mg Hydrochlorothiazide (Hydrodiuril) 25 mg PO DAILY [facility] Last Admin: 04/12/17 11:04 Dose: 25 mg Aztreonam 2 gm/ Sodium (Chloride) 100 mls @ 200 mls/hr IVPB Q8H [facility] Last Admin: 04/12/17 17:47 Dose: 200 mls/hr Vancomycin/Sodium Chloride (Vancocin) 1 gm in 200 mls @ 100 mls/hr IVPB Q12H [facility] Stop: 04/16/17 20:01 Last Admin: 04/12/17 20:04 Dose: 100 mls/hr Ketorolac Tromethamine (Toradol) 15 mg IVP Q6 PRN PRN Reason: Pain, moderate (4-7) Last Admin: 04/11/17 18:41 Dose: 15 mg Ketorolac Tromethamine (Toradol) 30 mg IVP Q6 PRN PRN Reason: Pain, severe (8-10) Last Admin: 04/12/17 20:00 Dose: 30 mg Levetiracetam (Keppra) 1,000 mg PO Q12H [facility] Last Admin: 04/12/17 21:09 Dose: 1,000 mg Levetiracetam (Keppra) 250 mg PO Q12H [facility] Last Admin: 04/12/17 21:09 Dose: 250 mg Levothyroxine Sodium (Synthroid) 112 mcg PO DAILY@0630 [facility] Last Admin: 04/12/17 06:16 Dose: 112 mcg Losartan Potassium (Cozaar) 100 mg PO DAILY [facility] Last Admin: 04/12/17 11:04 Dose: 100 mg Montelukast Sodium (Singulair) 10 mg PO QPM [facility] Last Admin: 04/12/17 17:46 Dose: 10 mg Ondansetron HCl (Zofran Inj) 4 mg IVP Q6H PRN PRN Reason: Nausea/Vomiting Pantoprazole Sodium (Protonix Ec Tab) 40 mg PO DAILY [facility] Last Admin: 04/12/17 11:04 Dose: 40 mg Pregabalin (Lyrica) 75 mg PO Q12H [facility] Last Admin: 04/12/17 20:05 Dose: 75 mg Rosuvastatin Calcium (Crestor) 5 mg PO [facility] Last Admin: 04/11/17 21:19 Dose: 5 mg Fluticasone/Salmeterol (Advair Diskus 500/50) 1 puff IH RQ12 [facility] Last Admin: 04/12/17 20:07 Dose: Not Given Zolpidem Tartrate (Ambien) 5 mg PO [facility] Last Admin: 04/11/17 21:55 Dose: 5 mg Physical Exam - Constitutional Appears: No Acute Distress Additional comments: alert oriented times3 - Head Exam Head Exam: ATRAUMATIC, NORMOCEPHALIC - Eye Exam Eye Exam: Normal appearance Pupil Exam: NORMAL ACCOMODATION - ENT Exam ENT Exam: Mucous Membranes Moist - Neck Exam Neck exam: Positive for: Normal Inspection - Respiratory Exam Respiratory Exam: Clear to Auscultation Bilateral, NORMAL BREATHING PATTERN - Cardiovascular Exam Cardiovascular Exam: REGULAR RHYTHM, RRR - GI/Abdominal Exam GI & Abdominal Exam: Normal Bowel Sounds, Soft - Extremities Exam Extremities exam: Positive for: normal inspection - Neurological Exam Neurological exam: CN II-XII Intact - Psychiatric Exam Psychiatric exam: Normal Mood Results - Vital Signs Recent Vital Signs: Last Vital Signs Temp 97.6 F 04/12/17 16:00 Pulse 82 07/11/17 16:00 Resp 20 04/12/17 16:00 BP 154/87 H 04/12/17 16:00 Pulse Ox 97 04/12/17 16:00 - Labs Result Diagrams: 04/12/17 06:57 04/12/17 06:57 Labs: Laboratory Results - last 24 hr 04/12/17 04/12/17 06:57 06:57 WBC 5.2 RBC 3.95 Hgb 10.8 L Hct 32.7 L MCV 82.8 MCH 27.4 MCHC 33.1 RDW 14.7 H Plt Count 232 MPV 7.9 Neut % (Auto) 45.7 L Lymph % (Auto) 32.4 [place] % (Auto) 12.7 H Eos % (Auto) 7.9 H Baso % (Auto) 1.3 Neut # 2.4 Lymph # 1.7 [place] # 0.7 Eos # 0.4 Baso # 0.1 Sodium 134 Potassium 3.3 L Chloride 101 Carbon Dioxide 26 Anion Gap 10 BUN 8 Creatinine 0.7 Est GFR ( Amer) > 60 Est GFR (Non-Af Amer) > 60 Random Glucose 84 Calcium 9.0 Phosphorus 3.4 Magnesium 1.6 Total Bilirubin 0.9 AST 38 H ALT 45 Alkaline Phosphatase 63 Total Protein 5.3 L Albumin 3.1 L Globulin 2.2 Albumin/Globulin Ratio 1.4 - Imaging and Cardiology CT scan - abdomen Status: Report reviewed by me (needs MR to check liver lesions,lung lesion) Assessment & Plan (1) Diverticulitis Status: Acute (2) Recurrent UTI Assessment and Plan: Patient is symptomatic however urine has GPC will check tomorrow culture if finalized to suggest drug for now continue azactam and Vancomycin follow up abnormality in ctscan Status: Acute (3) Hemangioma of liver Status: Acute
[2017-04-13] MEDS: Aztreonam 2 GM in Sodium Chloride 0.9% 100 ML IVPB SCH ×2 (02:01→12:26)
[2017-04-13] MEDS: Levothyroxine 112 MCG TAB PO SCH (06:40)
[2017-04-13 08:07] VITALS: O2SAT 95
[2017-04-13 08:15] LABS: BASO # 0.1 K/uL (0.0-0.2); BASO % 1.3 % (0.0-2.0); EOS # 0.5 K/uL (0.0-0.7); EOS % 7.6 % (0.0-4.0); HEMOGLOBIN 11.2 g/dL (11.0-16.0); LYMPH # 1.5 K/uL (1.0-4.3); LYMPH % 23.7 % (20.0-40.0); MEAN CELL VOLUME 82.2 fL (81.0-99.0); MEAN CORPUSCULAR HEMOGLOBIN 27.8 pg (27.0-31.0); MEAN CORPUSCULAR HGB CONC 33.8 g/dL (33.0-37.0); MEAN PLATELET VOLUME 7.3 fL (7.2-11.7); MONO # 0.7 K/uL (0.0-0.8); MONO % 11.7 % (0.0-10.0); NEUT # 3.4 K/uL (1.8-7.0); NEUT % 55.7 % (50.0-75.0); RBC 4.05 Mil/uL (3.80-5.20); RED CELL DISTRIBUTION WIDTH 14.6 % (11.5-14.5); WHITE BLOOD COUNT 6.2 K/uL (4.8-10.8)
[2017-04-13 08:22] LABS: ALBUMIN 3.3 g/dL (3.5-5.0)
[2017-04-13] MEDS: Fluticasone-Salmeterol 500-50mcg Diskus IH SCH (08:24)
[2017-04-13 08:25] LABS: ALB/GLOB RATIO 1.4 (1.0-2.1); AST/SGOT 49 U/L (14-36); BLOOD UREA NITROGEN 8 mg/dL (7-17); GFR AFRICAN-AMERICAN > 60; GFR NON-AFRICAN AMERICAN > 60
[2017-04-13 08:26] LABS: ALT/SGPT 58 U/L (9-52); CALCIUM 9.3 mg/dl (8.6-10.4); MAGNESIUM 1.7 mg/dL (1.6-2.3)
--- NOTE | 2017-04-13 09:25 | CP.PCM.PN ---
Subjective - Date & Time of Evaluation Date of Evaluation: 04/13/17 Time of Evaluation: 09:23 - Subjective Subjective: No pain, ID evaluation noted. Still on IV's pending final Sensitivities of urine Cx. Objective - Vital Signs/Intake and Output Vital Signs (last 24 hours): Temp Pulse Resp BP Pulse Ox 97.6 F 69 20 148/82 95 04/13/17 07:56 04/13/17 07:56 04/13/17 07:56 04/13/17 07:56 04/13/17 07:56 Intake and Output: 04/13/17 04/13/17 06:59 18:59 Intake Total 650 Balance 650 - Medications Medications: Current Medications Acetaminophen (Tylenol 325mg Tab) 650 mg PO Q6 PRN PRN Reason: Fever >100.4 F Acetaminophen (Tylenol 325mg Tab) 650 mg PO Q6 PRN PRN Reason: Pain, Mild (1-3) Al Hydrox/Mg Hydrox/Simethicone (Maalox 30 Ml) 30 ml PO Q6H PRN PRN Reason: Indigestion / Heartburn Last Admin: 04/10/17 21:05 Dose: 30 ml Aspirin (Aspirin) 325 mg PO DAILY [facility] Last Admin: 04/12/17 11:04 Dose: 325 mg Enoxaparin Sodium (Lovenox) 40 mg SC DAILY [facility] Last Admin: 04/12/17 13:10 Dose: 40 mg Hydrochlorothiazide (Hydrodiuril) 25 mg PO DAILY [facility] Last Admin: 04/12/17 11:04 Dose: 25 mg Aztreonam 2 gm/ Sodium (Chloride) 100 mls @ 200 mls/hr IVPB Q8H [facility] Last Admin: 04/13/17 02:01 Dose: 200 mls/hr Vancomycin/Sodium Chloride (Vancocin) 1 gm in 200 mls @ 100 mls/hr IVPB Q12H [facility] Stop: 04/16/17 20:01 Last Admin: 04/12/17 20:04 Dose: 100 mls/hr Ketorolac Tromethamine (Toradol) 15 mg IVP Q6 PRN PRN Reason: Pain, moderate (4-7) Last Admin: 04/11/17 18:41 Dose: 15 mg Ketorolac Tromethamine (Toradol) 30 mg IVP Q6 PRN PRN Reason: Pain, severe (8-10) Last Admin: 04/12/17 20:00 Dose: 30 mg Levetiracetam (Keppra) 1,000 mg PO Q12H [facility] Last Admin: 04/12/17 21:09 Dose: 1,000 mg Levetiracetam (Keppra) 250 mg PO Q12H [facility] Last Admin: 04/12/17 21:09 Dose: 250 mg Levothyroxine Sodium (Synthroid) 112 mcg PO DAILY@0630 [facility] Last Admin: 04/13/17 06:40 Dose: 112 mcg Losartan Potassium (Cozaar) 100 mg PO DAILY [facility] Last Admin: 04/12/17 11:04 Dose: 100 mg Montelukast Sodium (Singulair) 10 mg PO QPM [facility] Last Admin: 04/12/17 17:46 Dose: 10 mg Ondansetron HCl (Zofran Inj) 4 mg IVP Q6H PRN PRN Reason: Nausea/Vomiting Pantoprazole Sodium (Protonix Ec Tab) 40 mg PO DAILY [facility] Last Admin: 04/12/17 11:04 Dose: 40 mg Pregabalin (Lyrica) 75 mg PO Q12H [facility] Last Admin: 04/13/17 08:18 Dose: 75 mg Rosuvastatin Calcium (Crestor) 5 mg PO [facility] Last Admin: 04/12/17 21:51 Dose: 5 mg Fluticasone/Salmeterol (Advair Diskus 500/50) 1 puff IH RQ12 [facility] Last Admin: 04/13/17 08:24 Dose: 1 puff Zolpidem Tartrate (Ambien) 5 mg PO [facility] Last Admin: 04/12/17 21:51 Dose: 5 mg - Labs Labs: 04/13/17 08:05 04/13/17 08:05 - Constitutional Appears: No Acute Distress - Head Exam Head Exam: ATRAUMATIC, NORMOCEPHALIC - Respiratory Exam Respiratory Exam: NORMAL BREATHING PATTERN - Cardiovascular Exam Cardiovascular Exam: REGULAR RHYTHM, +S1 - GI/Abdominal Exam GI & Abdominal Exam: Soft, Normal Bowel Sounds. absent: Distended, Tenderness, Mass, Rebound - Extremities Exam Extremities Exam: Normal Inspection Assessment and Plan (1) GERD (gastroesophageal reflux disease) Status: Chronic (2) LLQ pain Status: Resolved (3) H/O adenomatous polyp of colon Status: Chronic (4) Diverticulitis Assessment & Plan: Clinically resolved with current antibiotic regimen. Will plan for colonoscopy in 8-12 weeks after resolution Abx duration and type per ID. Will sign off at this time. Recall as needed. Thank you. Status: Acute (5) Recurrent UTI Status: Acute (6) Hemangioma of liver Assessment & Plan: No further w/u at this time. Previously imaged. Status: Chronic
[2017-04-13] MEDS: Vancomycin 1 gm/NS 200 ml 1 GM/200 ML BAG IVPB SCH (09:41)
[2017-04-13] MEDS: Pantoprazole 40 mg EC Tab PO SCH (09:49)
[2017-04-13] MEDS: Enoxaparin 40 mg Syringe SC SCH (09:49)
--- NOTE | 2017-04-13 10:14 | PCM.URO ---
Urology Progress Note - Subjective Abdominal Pain: Yes Dysuria: Yes (Patient is complaining of dysuria that her main reason for admission to the) - Objective Lab Studies: Reviewed Lab Results Last 24 Hours: Laboratory Results - last 24 hr 04/13/17 04/13/17 08:05 08:05 WBC 6.2 RBC 4.05 Hgb 11.2 Hct 33.3 L MCV 82.2 MCH 27.8 MCHC 33.8 RDW 14.6 H Plt Count 239 MPV 7.3 Neut % (Auto) 55.7 Lymph % (Auto) 23.7 [place] % (Auto) 11.7 H Eos % (Auto) 7.6 H Baso % (Auto) 1.3 Neut # 3.4 Lymph # 1.5 [place] # 0.7 Eos # 0.5 Baso # 0.1 Sodium 136 Potassium 3.6 Chloride 102 Carbon Dioxide 26 Anion Gap 11 BUN 8 Creatinine 0.6 L Est GFR ( Amer) > 60 Est GFR (Non-Af Amer) > 60 Random Glucose 89 Calcium 9.3 Phosphorus 3.3 Magnesium 1.7 Total Bilirubin 0.8 AST 49 H D ALT 58 H D Alkaline Phosphatase 67 Total Protein 5.8 L Albumin 3.3 L Globulin 2.4 Albumin/Globulin Ratio 1.4 Intake & Output: Intake & Output 04/12/17 04/13/17 04/13/17 18:59 06:59 18:59 Intake Total 660 650 Balance 660 650 Intake: Intake, IV Amount 300 100 Left Hand 300 100 Oral 360 550 Other: # Voids Urine, Voided 2 2 # Bowel Movements 1 Vital Signs: Vital Signs - 24 hr 04/12/17 04/13/17 04/13/17 16:00 00:00 07:56 Temperature 97.6 F 98.5 F 97.6 F Pulse Rate 82 82 69 Respiratory 20 20 20 Rate Blood Pressure 154/87 H 130/77 148/82 O2 Sat by Pulse 97 96 95 Oximetry Imaging Studies: Reviewed (So in summary this very pleasant lady who has voiding dysfunction and dysuria that's been going on since at least January and it' s Worse starting April 04 she is currently on azactam and . we will review ct scan and plan for a cystoscopy to follow)
--- NOTE | 2017-04-13 14:32 | CP.PCM.PN ---
Subjective - Date & Time of Evaluation Date of Evaluation: 04/13/17 Time of Evaluation: 02:25 - Subjective Subjective: Patient was seen today had a new Picc line and was receiving antibiotics,she complains of pressure like pain suprapubic and in pelvic area,her urine culture only had 50,000 gpc she is on Vancomycin and Azactam and is allergic to many medication.Urologist saw her and plan to see her as outpt as she has had many uti , She is feeling better and is not having any blood in stool and is on treatment of diverticulitis. Dr Medina wants her to get medication for 2 weeks and she already got for 5 days Objective - Vital Signs/Intake and Output Vital Signs (last 24 hours): Temp Pulse Resp BP Pulse Ox 97.6 F 69 20 148/82 95 04/13/17 07:56 04/13/17 07:56 04/13/17 07:56 04/13/17 07:56 04/13/17 07:56 Intake and Output: 04/13/17 04/13/17 06:59 18:59 Intake Total 650 Balance 650 - Medications Medications: Current Medications Acetaminophen (Tylenol 325mg Tab) 650 mg PO Q6 PRN PRN Reason: Fever >100.4 F Acetaminophen (Tylenol 325mg Tab) 650 mg PO Q6 PRN PRN Reason: Pain, Mild (1-3) Al Hydrox/Mg Hydrox/Simethicone (Maalox 30 Ml) 30 ml PO Q6H PRN PRN Reason: Indigestion / Heartburn Last Admin: 04/10/17 21:05 Dose: 30 ml Aspirin (Aspirin) 325 mg PO DAILY [facility] Last Admin: 04/13/17 09:49 Dose: 325 mg Enoxaparin Sodium (Lovenox) 40 mg SC DAILY [facility] Last Admin: 04/13/17 09:49 Dose: 40 mg Hydrochlorothiazide (Hydrodiuril) 25 mg PO DAILY [facility] Last Admin: 04/13/17 09:49 Dose: 25 mg Aztreonam 2 gm/ Sodium (Chloride) 100 mls @ 200 mls/hr IVPB Q8H [facility] Last Admin: 04/13/17 12:26 Dose: 200 mls/hr Vancomycin/Sodium Chloride (Vancocin) 1 gm in 200 mls @ 100 mls/hr IVPB Q12H [facility] Stop: 04/16/17 20:01 Last Admin: 04/13/17 09:41 Dose: 100 mls/hr Ketorolac Tromethamine (Toradol) 15 mg IVP Q6 PRN PRN Reason: Pain, moderate (4-7) Last Admin: 04/11/17 18:41 Dose: 15 mg Ketorolac Tromethamine (Toradol) 30 mg IVP Q6 PRN PRN Reason: Pain, severe (8-10) Last Admin: 04/12/17 20:00 Dose: 30 mg Levetiracetam (Keppra) 1,000 mg PO Q12H [facility] Last Admin: 04/13/17 09:49 Dose: 1,000 mg Levetiracetam (Keppra) 250 mg PO Q12H [facility] Last Admin: 04/13/17 09:49 Dose: 250 mg Levothyroxine Sodium (Synthroid) 112 mcg PO DAILY@0630 [facility] Last Admin: 04/13/17 06:40 Dose: 112 mcg Losartan Potassium (Cozaar) 100 mg PO DAILY [facility] Last Admin: 04/13/17 09:49 Dose: 100 mg Montelukast Sodium (Singulair) 10 mg PO QPM [facility] Last Admin: 04/12/17 17:46 Dose: 10 mg Ondansetron HCl (Zofran Inj) 4 mg IVP Q6H PRN PRN Reason: Nausea/Vomiting Pantoprazole Sodium (Protonix Ec Tab) 40 mg PO DAILY [facility] Last Admin: 04/13/17 09:49 Dose: 40 mg Pregabalin (Lyrica) 75 mg PO Q12H [facility] Last Admin: 04/13/17 08:18 Dose: 75 mg Rosuvastatin Calcium (Crestor) 5 mg PO HS [facility] Last Admin: 04/12/17 21:51 Dose: 5 mg Fluticasone/Salmeterol (Advair Diskus 500/50) 1 puff IH RQ12 [facility] Last Admin: 04/13/17 08:24 Dose: 1 puff Zolpidem Tartrate (Ambien) 5 mg PO HS [facility] Last Admin: 04/12/17 21:51 Dose: 5 mg - Labs Labs: 04/13/17 08:05 04/13/17 08:05 - Constitutional Appears: No Acute Distress - Head Exam Head Exam: ATRAUMATIC, NORMOCEPHALIC - Eye Exam Eye Exam: Normal appearance Pupil Exam: NORMAL ACCOMODATION - ENT Exam ENT Exam: Mucous Membranes Moist - Neck Exam Neck Exam: Normal Inspection. absent: Full ROM, Lymphadenopathy, Meningismus, Tenderness, Thyromegaly - Respiratory Exam Respiratory Exam: Clear to Ausculation Bilateral, NORMAL BREATHING PATTERN. absent: Accessory Muscle Use, Chest Wall Tenderness, Decreased Breath Sounds, Prolonged Expiratory Phase, Rales, Rhonchi, Wheezes, Respiratory Distress, Stridor - Cardiovascular Exam Cardiovascular Exam: REGULAR RHYTHM. absent: Bradycardia, Tachycardia, Clicks, Diastolic murmur, Gallop, Irregular Rhythm, JVD, RRR, Rubs, +S1, +S2, +S4, Murmur - GI/Abdominal Exam GI & Abdominal Exam: Soft, Normal Bowel Sounds. absent: Bruit, Distended, Firm , Guarding, Rigid, Tenderness, Diminished Bowel Sounds, Hernia, Hyperactive Bowel Sounds, Hypoactive Bowel Sounds, Organomegaly, Pulsatile Mass, Rebound, Mass - Extremities Exam Extremities Exam: Normal Inspection - Neurological Exam Neurological Exam: CN II-XII Intact Assessment and Plan (1) Diverticulitis Assessment & Plan: patient to continue 9ndays of Vancomycin and Azactam and to get vancomycin peak and trough done and labs followed closely to avoid any side effects from medication Patient is already allergic to lot of antibiotics Status: Acute (2) Recurrent UTI Assessment & Plan: follow up with Urology may need cystscopy Status: Acute (3) Hemangioma of liver Status: Acute
--- NOTE | 2017-04-13 14:34 | RAD ---
PROCEDURE: CHEST RADIOGRAPH, 1 VIEW HISTORY: verify right PICC COMPARISON: 07/04/2014 FINDINGS: LUNGS: The right PICC line terminates in the SVC. There is mild pulmonary venous congestion. There is mild bibasilar atelectasis. No focal consolidation. PLEURA: No pneumothorax or pleural fluid seen. CARDIOVASCULAR: Normal. OSSEOUS STRUCTURES: No significant abnormalities. VISUALIZED UPPER ABDOMEN: Normal. OTHER FINDINGS: None. IMPRESSION: Right PICC line terminates in the SVC. No pneumothorax. Mild pulmonary venous congestion. No focal consolidation.
--- NOTE | 2017-04-13 15:01 | CP.PCM.DIS ---
Provider - Provider Date of Admission: 04/08/17 00:05 Attending physician: Jae Hernandez MD Primary care physician: Dr. Hernandez Consults: GI Dr. Smith Urology Dr. Gladys Negron ID Dr. Gamble Time Spent in preparation of Discharge (in minutes): 40 Hospital Course - Lab Results Lab Results: Micro Results 04/08/17 06:00 Urine,Clean Catch Urine Culture - Final Gram Positive Cocci Most Recent Lab Values WBC 6.2 K/uL (4.8-10.8) 04/13/17 08:05 RBC 4.05 Mil/uL (3.80-5.20) 04/13/17 08:05 Hgb 11.2 g/dL (11.0-16.0) 04/13/17 08:05 Hct 33.3 % (34.0-47.0) L 04/13/17 08:05 MCV 82.2 fL (81.0-99.0) 04/13/17 08:05 MCH 27.8 pg (27.0-31.0) 04/13/17 08:05 MCHC 33.8 g/dL (33.0-37.0) 04/13/17 08:05 RDW 14.6 % (11.5-14.5) H 04/13/17 08:05 Plt Count 239 K/uL (130-400) 04/13/17 08:05 MPV 7.3 fL (7.2-11.7) 04/13/17 08:05 Neut % (Auto) 55.7 % (50.0-75.0) 04/13/17 08:05 Lymph % (Auto) 23.7 % (20.0-40.0) 04/13/17 08:05 Warrick % (Auto) 11.7 % (0.0-10.0) H 04/13/17 08:05 Eos % (Auto) 7.6 % (0.0-4.0) H 04/13/17 08:05 Baso % (Auto) 1.3 % (0.0-2.0) 04/13/17 08:05 Neut # 3.4 K/uL (1.8-7.0) 04/13/17 08:05 Lymph # 1.5 K/uL (1.0-4.3) 04/13/17 08:05 Warrick # 0.7 K/uL (0.0-0.8) 04/13/17 08:05 Eos # 0.5 K/uL (0.0-0.7) 04/13/17 08:05 Baso # 0.1 K/uL (0.0-0.2) 04/13/17 08:05 Sodium 136 mmol/L (132-148) 04/13/17 08:05 Potassium 3.6 mmol/L (3.6-5.2) 04/13/17 08:05 Chloride 102 mmol/L (98-107) 04/13/17 08:05 Carbon Dioxide 26 mmol/L (22-30) 04/13/17 08:05 Anion Gap 11 (10-20) 04/13/17 08:05 BUN 8 mg/dL (7-17) 04/13/17 08:05 Creatinine 0.6 MG/DL (0.7-1.2) L 04/13/17 08:05 Est GFR ( Amer) > 60 04/13/17 08:05 Est GFR (Non-Af Amer) > 60 04/13/17 08:05 Random Glucose 89 mg/dL (65-105) 04/13/17 08:05 Calcium 9.3 mg/dl (8.6-10.4) 04/13/17 08:05 Phosphorus 3.3 mg/dL (2.5-4.5) 04/13/17 08:05 Magnesium 1.7 mg/dL (1.6-2.3) 04/13/17 08:05 Total Bilirubin 0.8 mg/dL (0.2-1.3) 04/13/17 08:05 AST 49 U/L (14-36) H D 04/13/17 08:05 ALT 58 U/L (9-52) H D 04/13/17 08:05 Alkaline Phosphatase 67 U/L (38-126) 04/13/17 08:05 Total Protein 5.8 g/dL (6.3-8.3) L 04/13/17 08:05 Albumin 3.3 g/dL (3.5-5.0) L 04/13/17 08:05 Globulin 2.4 gm/dL (2.2-3.9) 04/13/17 08:05 Albumin/Globulin Ratio 1.4 (1.0-2.1) 04/13/17 08:05 Lipase 86 U/L (23-300) 04/07/17 20:39 Urine Color Zoie (YELLOW) 04/07/17 23:19 Urine Clarity Clear (Clear) 04/07/17 23:19 Urine pH 6.0 (5.0-8.0) 04/07/17 23:19 Ur Specific [place] 1.009 (1.003-1.030) 04/07/17 23:19 Urine Protein Negative mg/dL (NEGATIVE) 04/07/17 23:19 Urine Glucose (UA) Normal mg/dL (Normal) 04/07/17 23:19 Urine Ketones Negative mg/dL (NEGATIVE) 04/07/17 23:19 Urine Blood 1+ (NEGATIVE) H 04/07/17 23:19 Urine Nitrate Positive (NEGATIVE) H 04/07/17 23:19 Urine Bilirubin Negative (NEGATIVE) 04/07/17 23:19 Urine Urobilinogen Normal mg/dL (0.2-1.0) 04/07/17 23:19 Ur Leukocyte Esterase 3+ Chloe/uL (Negative) H 04/07/17 23:19 Urine WBC (Auto) 32 /hpf (0-5) H 04/07/17 23:19 Urine RBC (Auto) 9 /hpf (0-3) H 04/07/17 23:19 Ur Squamous Epith Cells 7 /hpf (0-5) H 04/07/17 23:19 Urine Bacteria Rare (<OCC) 04/07/17 23:19 - Hospital Course Hospital Course: HPI: 67 F with PMHx of HTN, Hypothyroidism, Seizure Disorder, HLD, COPD, GERD, and Hemangioma who presents to the ED on 04/07/17 with abdominal pain x 3 days. Patient reports the pain is localized to LLQ and does not radiate. She started to have diarrhea and abdominal pain after eating. She saw Dr. Loza in his office for these symptoms and he gave her carafate which did not relieve these symptoms. She also admitted to dysuria and suprapubic tenderness. CT Abdomen/ Pelvis revealed diverticulitis and Urine Culture revealed Gram + cocci. Please see individual Assessment and Plans below for further details and medications that will need to be continued at [facility]. ROS: Still complains of burning after urination Hemorrhoid pain NO other complaints upon FULL ROS - Constitutional Appears: Well - Head Exam Head Exam: ATRAUMATIC, NORMAL INSPECTION, NORMOCEPHALIC - Eye Exam Eye Exam: EOMI, Normal appearance, PERRL - ENT Exam ENT Exam: Mucous Membranes Moist, Normal Exam - Neck Exam Neck Exam: Full ROM, Normal Inspection. absent: Lymphadenopathy - Respiratory Exam Respiratory Exam: Clear to Ausculation Bilateral, NORMAL BREATHING PATTERN - Cardiovascular Exam Cardiovascular Exam: REGULAR RHYTHM, +S1, +S2. absent: Murmur - GI/Abdominal Exam GI & Abdominal Exam: Soft, Normal Bowel Sounds. absent: Tenderness - Rectal Exam Rectal Exam: Deferred - Extremities Exam Extremities Exam: Full ROM, Normal Capillary Refill, Normal Inspection. absent : Joint Swelling, Pedal Edema - Neurological Exam Neurological Exam: Alert, Awake, Oriented x3 - Psychiatric Exam Psychiatric exam: Normal Affect, Normal Mood - Skin Additional comments: 3-4cm circular ecchymosis in RLQ Assessment and Plan - Assessment and Plan (Free Text) Assessment: Diverticulitis 04/13: ID Dr. Gamble would like for patient to continue Vancomycin 1 gm IV Q12H AND Azactam 2 gm IV Q8H for 9 more days from 04/13/17. Monitor Vancomycin Trough 30 minutes prior to every 4th dose. PICC Line was placed today 04/13/17 Patient will need to follow up with GI Dr. Loza for colonoscopy 6 to 8 weeks after finishing treatment. 04/12: discontinued clindamycin 300mg q8. Started vancomycin 1gm iv qd to cover gram positive bacteria in the urine. Aztrenam will remain to cover colonic bacteria for diverticulitis 04/12: K+ 3.3 -> gave Kdur 40meq 04/11: added torodol 30mg q6 prn for severe pain 04/11: tolerating diet, will keep on solid foods * Afebrile, no leukocytosis, vitals stable * Advanced diet to soft, heart healthy * started on Maalox Q6h PRN for heartburn * Seen by Dr Medina, GI: "Patient is feeling better after starting with IV antibiotics. Has multiple medical alleregies and reactions. Would treat for 10- 14 days and then plan colonoscopy which was due in 8-12 weeks. Advance diet when pain has improved and exam is benign" * Clindamycin 300 Q8H and Aztreonam 2gm Q8H (Started on 04/07/17 due to multiple allergies, allergy to bactrim) * CT AB & P w/o IV contrast: Colonic diverticula. Evaluation of bowel limited without enteric contrast. Question slight increased. mesenteric markings adjacent to colonic diverticulum in the rectosigmoid region, axial image 66,. cannot exclude mild diverticulitis. Partial visualization of approximately 2 mm nodule in the right lower lobe visualized on the 1st image. on this study. Additional 2 mm nodule in the right lower lobe on image 2. Again noted is a low density lesion in the right lobe of the liver measuring approximately 7 cm in. maximal dimension, 2015 study not available for comparison at time of report. Additional. subcentimeter low-attenuation lesion noted inferior to this , unchanged from 2014. Please correlate. with prior imaging diagnosis. Prior reports have recommended followup MRI/ultrasound. Gallstone in the gallbladder without CT evidence of acute cholecystitis. Evidence of subcentimeter hypoattenuating nodule in the left adrenal gland, unchanged from prior. study in 2013. Please see additional details/findings as above. Correlate clinically. Followup as warranted. * GI consult- Dr. Loza - help appreciated UTI 04/13: ID Dr. Gamble would like for patient to continue Vancomycin 1 gm IV Q12H AND Azactam 2 gm IV Q8H for 9 more days from 04/13/17 Patient will also need to follow up with Urologist Dr. Tremaine Negron once discharged from [facility] for Cystoscopy 04/12: discontinued clindamycin 300mg q8. Started vancomycin 1gm iv qd to cover gram positive bacteria in the urine 04/12: Consulted Dr Borja as Dr Melo does not see hospital patients. Will get in touch with Dr Melo tomorrow to collect any prior imaging. 04/12: Urine culture- Final -> gram positive cocci- sensitivies will not be performed (per tanbark laborer, sensitivities not performed on cultures with bacteria <50,000 CFU/mL) 04/11: Urology consult, Dr Melo, consulted. Dr Melo follows patient outpatient for her history of chornic UTI. 04/11: ID consulted, Dr Gamble, for patient's multiple antibiotic allergies * Renal Ultrasound 04/08: No evidence of urinary tract obstruction. Unremarkable examination. * UA: + nitrate, + LE * Started 04/07/17 on Clindamycin 300 Q8H and Aztreonam 2gm Q8H (due to multiple allergies) HTN * Resume home medications: Avalide 25-300 mg 1 tab po daily * HHD Hypothyroidism * Resume home medication: Synthroid 112 mcg PO daily HLD * Resumed home medication: Crestor 5 mg PO QHS COPD * Resumed home medication: Duoneb PRN, Singulair 10mg PO QHS, Advair diskus 500/ 50 1 puff INH 1x/day Seizure Disorder * Resumed home medications: Keppra 1250mg PO BID, Lyrica 75mg PO BID GERD * Protonix 40mg PO daily * Per Amanda Mccoy as needed Hx of Hemangioma * Routinely monitored Liver Nodule 7 cm Liver nodule seen on CT Patient will need follow up MRI Abdomen as an outpatient Lung Nodule 2mm Lung nodule seen on CT Patient will need repeat CT in 6 months as an outpatient Prophylactic Measures * GI PPX: Protonix 40mg IVP daily * DVT PPX: SCDs, Lovenox 40mg SC daily Jae Hernandez D.O. Discharge Exam - Head Exam Head Exam: ATRAUMATIC, NORMOCEPHALIC Discharge Plan - Follow Up Plan Condition: STABLE Disposition: HOME/ ROUTINE Instructions: Urinary Tract Infection in Women (DC), Urinary Tract Infection in Men (DC), Dysuria (GEN)
[2017-04-13 16:15] VITALS: BP 155/84; PULSE 82; TEMP 97.9
== END 2017-04-13 17:00 | DRG 690 ==
LOC: C.ER 19:45 → C.3T 04-08 00:05
PROVIDERS: ADMIT Family Medicine; ATTEND Family Medicine
PROC: 02HV33Z Insertion of Infusion Device into Superior Vena Cava, Percutaneous Approach (ICD-10-PCS; principal; 2017-04-13)
DX: N39.0 Urinary tract infection, site not specified (principal); J44.9 Chronic obstructive pulmonary disease, unspecified; K76.0 Fatty (change of) liver, not elsewhere classified; K57.92 Diverticulitis of intestine, part unspecified, without perforation or abscess without bleeding; D18.03 Hemangioma of intra-abdominal structures; I10 Essential (primary) hypertension; E03.9 Hypothyroidism, unspecified; E78.00 Pure hypercholesterolemia, unspecified; G40.909 Epilepsy, unspecified, not intractable, without status epilepticus; K21.9 Gastro-esophageal reflux disease without esophagitis; K59.00 Constipation, unspecified; Z87.891 Personal history of nicotine dependence

== ENCOUNTER 2017-05-24 21:04 | Emergency (ER) | payer MEDICARE, BC ==
[2017-05-24 21:04] VITALS: BMI 34.9
--- NOTE | 2017-05-24 21:52 | C.PDOC ---
History Of Present Illness 67 y/o female c/o chronic acid reflux and dysuria for a while now. Patient has been on antibiotics for her diverticulitis, which she notes "may have caused the reflux". Denies fever, chills, chest pain, palpitations, SOB, diaphoresis, or any other complaints. Time Seen by Provider: 05/24/17 21:51 Chief Complaint (Nursing): Abdominal Pain History Per: Patient History/Exam Limitations: no limitations Onset/Duration Of Symptoms: Days, Persistent Current Symptoms Are (Timing): Still Present Severity: Mild Associated Symptoms: denies: Fever, Chills Exacerbating Factors: None Alleviating Factors: None Recent travel outside of the [place]: No Additional History Per: Patient Past Medical History Reviewed: Historical Data, Nursing Documentation, Vital Signs Vital Signs: Last Vital Signs Temp 97.8 F 05/25/17 01:36 Pulse 72 05/25/17 01:36 Resp 18 05/25/17 01:36 BP 156/78 H 05/25/17 01:36 Pulse Ox 96 05/25/17 01:36 - Medical History PMH: Asthma, COPD, Diverticulitis (Diverticulosis), Gastritis, HTN, Hypercholesterolemia, Seizures (LAST SEIZURE 2011) Denies: Alzheimer's Disease, Atrial Fibrillation, Bronchitis, Cardia Arrhythmia, CHF, Crohn's Disease, Dementia, Emphysema, Gall Bladder Disease, HIV , Migraine, Mitral Valve Prolapse, Multiple Sclerosis, Pancreatitis, Parkinson' s Disease, Peripheral Edema, Pneumonia, Pulmonary Embolism, Chronic Kidney Disease, Sleep Apnea, TIA Surgical History: Appendectomy (3 YRS. OLD) Denies: CABG, Carotid Endarterectomy, Cholecystectomy, Coronary Stent, Pacemaker, Tonsillectomy - [facility] Procedures CLOSED ENDOSCOPIC BIOPSY OF LARGE INTESTINE (07/31/14) INSERTION OF INFUSION DEV INTO SUP VENA CAVA, PERC APPROACH (04/08/17) Family History: States: Unknown Family Hx - Social History Hx Tobacco Use: No Hx Alcohol Use: No Hx Substance Use: No - Immunization History Hx Tetanus Toxoid Vaccination: No Hx Influenza Vaccination: No Hx Pneumococcal Vaccination: No Review Of Systems Constitutional: Negative for: Fever, Chills, Sweats ENT: Negative for: Throat Pain Cardiovascular: Negative for: Chest Pain, Palpitations Respiratory: Negative for: Cough, Shortness of Breath Gastrointestinal: Positive for: Other (Acid reflux) Genitourinary: Positive for: Dysuria Skin: Negative for: Rash Psych: Negative for: Anxiety Physical Exam - Physical Exam Appears: Non-toxic, No Acute Distress Skin: Warm, Dry Head: Normacephalic Oral Mucosa: Moist Throat: Normal, No Erythema, No Exudate Neck: Trachea Midline, Supple Cardiovascular: Rhythm Regular Respiratory: No Rales, No Rhonchi, No Wheezing Gastrointestinal/Abdominal: Soft, No Tenderness Back: No CVA Tenderness Neurological/Psych: Oriented x3, Normal Speech, Normal Cognition Gait: Steady ED Course And Treatment - Laboratory Results Result Diagrams: 05/24/17 22:47 05/24/17 22:47 O2 Sat by Pulse Oximetry: 95 (RA) Pulse Ox Interpretation: Normal Medical Decision Making Medical Decision Making: Upon provider reevaluation patient is feeling better, is medically stable, and requires no further treatment in the ED at this time. Patient will be discharged home \\. Counseling was provided and all questions were answered regarding diagnosis and need for follow up withyour sanding machine tender on . There is agreement to discharge plan. Return if symptoms persist or worsen. Disposition Counseled Patient/Family Regarding: Studies Performed, Diagnosis, Need For Followup - Disposition Referrals: Shelly Hernandez MD [Staff Provider] - Disposition: HOME/ ROUTINE Disposition Time: 21:51 Condition: FAIR Additional Instructions: Please keep you sanding machine tender appointment on Instructions: Gastroesophageal Reflux Disease (ED), Hyponatremia (DC) Forms: [facility] (Italian) - Clinical Impression Clinical Impression: Gastroesophageal reflux disease, Hyponatremia - Scribe Statement The provider has reviewed the documentation as recorded by the Justoibestefani miranda All medical record entries made by the Justoibestefani were at my direction and personally dictated by me. I have reviewed the chart and agree that the record accurately reflects my personal performance of the history, physical exam, medical decision making, and the department course for this patient. I have also personally directed, reviewed, and agree with the discharge instructions and disposition.
[2017-05-24 22:57] LABS: BASO # 0.1 K/uL (0.0-0.2); BASO % 0.9 % (0.0-2.0); EOS # 0.3 K/uL (0.0-0.7); EOS % 4.8 % (0.0-4.0); HEMATOCRIT 36.4 % (34.0-47.0); LYMPH # 1.6 K/uL (1.0-4.3); LYMPH % 21.6 % (20.0-40.0); MEAN CELL VOLUME 82.6 fL (81.0-99.0); MEAN CORPUSCULAR HEMOGLOBIN 27.5 pg (27.0-31.0); MEAN CORPUSCULAR HGB CONC 33.3 g/dL (33.0-37.0); MEAN PLATELET VOLUME 7.7 fL (7.2-11.7); MONO % 14.3 % (0.0-10.0); NRBC % 0.1 % (0.0-2.0); RED CELL DISTRIBUTION WIDTH 14.9 % (11.5-14.5); WHITE BLOOD COUNT 7.2 K/uL (4.8-10.8)
[2017-05-24 22:59] LABS: CHLORIDE 88 mmol/L (98-107); POTASSIUM 3.5 mmol/L (3.6-5.2); SODIUM 124 mmol/L (132-148)
[2017-05-24 23:01] LABS: RBC URINE < 1 /hpf (0-3); URINE BILIRUBIN NEGATIVE (NEGATIVE); URINE BLOOD NEGATIVE (NEGATIVE); URINE COLOR Amber (YELLOW); URINE GLUCOSE (UA) NORMAL (Normal); URINE KETONE NEGATIVE (NEGATIVE); URINE LEUKOCYTE ESTERASE NEG Leu/uL (Negative); URINE PROTEIN NEGATIVE (NEGATIVE); WBC URINE < 1 /hpf (0-5)
[2017-05-24 23:02] LABS: ALB/GLOB RATIO 1.4 (1.0-2.1); ALKALINE PHOSPHATASE 87 U/L (38-126); ALT/SGPT 51 U/L (9-52); AST/SGOT 33 U/L (14-36); BILIRUBIN,TOTAL 1.3 mg/dL (0.2-1.3); BLOOD UREA NITROGEN 11 mg/dL (7-17); CALCIUM 9.4 mg/dl (8.6-10.4); CARBON DIOXIDE 24 mmol/L (22-30); GFR AFRICAN-AMERICAN > 60; GLUCOSE,RANDOM 91 mg/dL (65-105); TOTAL PROTEIN 6.6 g/dL (6.3-8.3)
[2017-05-24] MEDS ORDERED: Sodium Chloride 0.9% 1,000 ML IV ONE (23:05)
[2017-05-24] MEDS ORDERED: Sodium Chloride 0.9% 1,000 ML ONE (23:07)
[2017-05-25] MEDS ORDERED: Sucralfate 1 gm/10 ml Oral Susp UD PO STA (01:11)
[2017-05-25] MEDS ORDERED: Sucralfate 1 gm/10 ml Oral Susp UD ONE (01:14)
[2017-05-25 01:36] VITALS: RESP 18; TEMP 97.8
[2017-05-25 02:20] VITALS: BP 136/82; PULSE 82; O2SAT 99
--- NOTE | 2017-05-26 12:57 | CARD ---
APPROVED REPORT EKG Measurement Heart [id number] <Conclusion> Normal sinus rhythm Normal ECG
== END 2017-05-25 02:20 | disposition home or self-care (01) ==
LOC: C.ER 21:04
DX: K21.9 Gastro-esophageal reflux disease without esophagitis (principal); E87.1 Hypo-osmolality and hyponatremia
CPT/HCPCS: 80053; 81001; 83690; 85025; 85610; 85730; 93005; 96361; 96374; 96375; 99285; C9113; J1885; J7040

== ENCOUNTER 2017-05-28 07:37 | Emergency (ER) | payer MEDICARE, BC ==
[2017-05-28 07:37] VITALS: BMI 34.9
[2017-05-28 09:02] LABS: RBC URINE 1 /hpf (0-3); URINE BACTERIA RARE (<OCC); URINE BILIRUBIN NEGATIVE (NEGATIVE); URINE BLOOD 1+ (NEGATIVE); URINE COLOR Straw (YELLOW); URINE GLUCOSE (UA) NORMAL (Normal); URINE KETONE NEGATIVE (NEGATIVE); URINE LEUKOCYTE ESTERASE 1+ Leu/uL (Negative); URINE PROTEIN NEGATIVE (NEGATIVE); URINE UROBILINOGEN NORMAL mg/dL (0.2-1.0); WBC URINE 4 /hpf (0-5)
[2017-05-28 09:06] LABS: BASO # 0.1 K/uL (0.0-0.2); BASO % 1.3 % (0.0-2.0); EOS # 0.4 K/uL (0.0-0.7); EOS % 7.5 % (0.0-4.0); HEMATOCRIT 36.7 % (34.0-47.0); LYMPH # 1.1 K/uL (1.0-4.3); LYMPH % 20.2 % (20.0-40.0); MEAN CELL VOLUME 82.9 fL (81.0-99.0); MEAN CORPUSCULAR HEMOGLOBIN 27.8 pg (27.0-31.0); MEAN CORPUSCULAR HGB CONC 33.6 g/dL (33.0-37.0); MEAN PLATELET VOLUME 7.4 fL (7.2-11.7); MONO # 0.7 K/uL (0.0-0.8); MONO % 13.4 % (0.0-10.0); RED CELL DISTRIBUTION WIDTH 14.6 % (11.5-14.5); WHITE BLOOD COUNT 5.5 K/uL (4.8-10.8)
[2017-05-28 09:19] LABS: CHLORIDE 96 mmol/L (98-107); POTASSIUM 3.4 mmol/L (3.6-5.2); SODIUM 136 mmol/L (132-148)
[2017-05-28 09:21] LABS: BILIRUBIN,TOTAL 1.1 mg/dL (0.2-1.3); GFR AFRICAN-AMERICAN > 60
[2017-05-28 09:22] LABS: ALB/GLOB RATIO 1.4 (1.0-2.1); ALKALINE PHOSPHATASE 76 U/L (38-126); ALT/SGPT 49 U/L (9-52); AST/SGOT 38 U/L (14-36); BLOOD UREA NITROGEN 10 mg/dL (7-17); CALCIUM 9.4 mg/dl (8.6-10.4); CARBON DIOXIDE 30 mmol/L (22-30); GLUCOSE,RANDOM 109 mg/dL (65-105); TOTAL PROTEIN 6.6 g/dL (6.3-8.3)
--- NOTE | 2017-05-28 09:56 | C.PDOC ---
History Of Present Illness 67 y/o F c PMHx meningioma p/w whole body burning paresthesias that were much worse since last night. Patient has been recently evaluated for gastric reflux and treated with diverticulitis. She reports whole body burning paresthesias that made it very difficult to sleep. Sometimes she feels them as a cold sensation. She denies trauma, fever, dyspnea, vomiting, chest pain. She called Dr. Olsen this morning and told him that she was going to ED. Time Seen by Provider: 05/28/17 08:01 Chief Complaint (Nursing): Weakness/Neurological Deficit Past Medical History Vital Signs: Last Vital Signs Temp 98.7 F 05/28/17 10:16 Pulse 59 L 05/28/17 10:16 Resp 17 05/28/17 10:16 BP 103/66 05/28/17 10:16 Pulse Ox 97 05/28/17 10:28 - Medical History PMH: Asthma, COPD, Diverticulitis (Diverticulosis), Gastritis, HTN, Hypercholesterolemia, Seizures (LAST SEIZURE 2011) Denies: Alzheimer's Disease, Atrial Fibrillation, Bronchitis, Cardia Arrhythmia, CHF, Crohn's Disease, Dementia, Emphysema, Gall Bladder Disease, HIV , Migraine, Mitral Valve Prolapse, Multiple Sclerosis, Pancreatitis, Parkinson' s Disease, Peripheral Edema, Pneumonia, Pulmonary Embolism, Chronic Kidney Disease, Sleep Apnea, TIA Surgical History: Appendectomy (3 YRS. OLD) Denies: CABG, Carotid Endarterectomy, Cholecystectomy, Coronary Stent, Pacemaker, Tonsillectomy - [facility] Procedures CLOSED ENDOSCOPIC BIOPSY OF LARGE INTESTINE (07/31/14) INSERTION OF INFUSION DEV INTO SUP VENA CAVA, PERC APPROACH (04/08/17) Family History: States: Unknown Family Hx - Social History Hx Tobacco Use: No Hx Alcohol Use: No Hx Substance Use: No - Immunization History Hx Tetanus Toxoid Vaccination: No Hx Influenza Vaccination: No Hx Pneumococcal Vaccination: No Review Of Systems Except As Marked, All Systems Reviewed And Found Negative. Constitutional: Negative for: Fever Cardiovascular: Negative for: Chest Pain Physical Exam - Physical Exam Additional Physical Exam Comments: Constitutional: No acute distress. Head: Normocephalic. Atraumatic. Eyes: PERRL. ENT: Moist mucous membranes. Neck: Supple. Cardiovascular: Regular rate. Radial pulse 2+ bilaterally. Chest: No tenderness. Respiratory: Clear to auscultation bilaterally. GI: Soft. Nontender. Nondistended. Back: No CVA tenderness. Musculoskeletal: No tenderness or swelling of extremities. Skin: No rash. Neurologic: Alert, no focal deficit. ED Course And Treatment - Laboratory Results Result Diagrams: 05/28/17 09:02 05/28/17 09:02 O2 Sat by Pulse Oximetry: 97 Medical Decision Making Medical Decision Making: Discussed case with Dr. Olsen who recommends CT Head to rule out any complications of meningioma. Recommends that in absence of other abnormalities, patient can be discharged and follow up in office. ADDENDUM: This study was compared to the prior head CT dated 07/30/2012. [ Addendum Report Added by Roger Garcia MD at 05/28/2017 10:09:35 ] PROCEDURE: CT HEAD WITHOUT CONTRAST. HISTORY: known meningioma, body paresthesias COMPARISON: None available. TECHNIQUE: Axial computed tomography images were obtained through the head/brain without intravenous contrast. Radiation dose: Total exam DLP = 867 mGy-cm. This CT exam was performed using one or more of the following dose reduction techniques: Automated exposure control, adjustment of the mA and/or kV according to patient size, and/or use of iterative reconstruction technique. FINDINGS: HEMORRHAGE: No intracranial hemorrhage. BRAIN: No mass effect or edema. No atrophy or chronic microvascular ischemic changes. VENTRICLES: Unremarkable. No hydrocephalus. CALVARIUM: Bilateral anterior sikh bone cystic changes appears stable through the skullbase. PARANASAL SINUSES: Unremarkable as visualized. No significant inflammatory changes. MASTOID AIR CELLS: Unremarkable as visualized. No inflammatory changes. OTHER FINDINGS: Physical history of a reportedly known meningioma which is not clearly identified on the current examination likely due to its small size. No large intracranial mass identified. The potential left middle cranial fossa arachnoid cyst of 1.5 cm is questioned versus focal atrophy. IMPRESSION: Nonacute head CT as discussed above. No large intracranial mass is appreciable this unenhanced exam. Further characterization can provided by MRI if clinically warranted. There is reportedly a prior history of and meningioma. It is not clearly identified on the current CT. Follow-up MRI without contrast can better defined extra-axial spaces than the current CT exam although a small potential arachnoid cyst may be present left middle cranial fossa anteriorly. Disposition Discussed With Dr.: Ulises Olsen Doctor Will See Patient In The: Office - Disposition Referrals: Ulises Olsen MD [Staff Provider] - Disposition: HOME/ ROUTINE Disposition Time: 10:30 Condition: STABLE Prescriptions: Nitrofurantoin Macrocrystals [Macrobid] 100 mg PO BID #20 cap Instructions: Paresthesia (ED), Urinary Tract Infection in Women (ED) Forms: [facility] (Arabic) - Clinical Impression Clinical Impression: UTI (urinary tract infection), Paresthesia
--- NOTE | 2017-05-28 10:09 | CT ---
PROCEDURE: CT HEAD WITHOUT CONTRAST. HISTORY: known meningioma, body paresthesias COMPARISON: None available. TECHNIQUE: Axial computed tomography images were obtained through the head/brain without intravenous contrast. Radiation dose: Total exam DLP = 867 mGy-cm. This CT exam was performed using one or more of the following dose reduction techniques: Automated exposure control, adjustment of the mA and/or kV according to patient size, and/or use of iterative reconstruction technique. FINDINGS: HEMORRHAGE: No intracranial hemorrhage. BRAIN: No mass effect or edema. No atrophy or chronic microvascular ischemic changes. VENTRICLES: Unremarkable. No hydrocephalus. CALVARIUM: Bilateral anterior baptist bone cystic changes appears stable through the skullbase. PARANASAL SINUSES: Unremarkable as visualized. No significant inflammatory changes. MASTOID AIR CELLS: Unremarkable as visualized. No inflammatory changes. OTHER FINDINGS: Physical history of a reportedly known meningioma which is not clearly identified on the current examination likely due to its small size. No large intracranial mass identified. The potential left middle cranial fossa arachnoid cyst of 1.5 cm is questioned versus focal atrophy. IMPRESSION: Nonacute head CT as discussed above. No large intracranial mass is appreciable this unenhanced exam. Further characterization can provided by MRI if clinically warranted. There is reportedly a prior history of and meningioma. It is not clearly identified on the current CT. Follow-up MRI without contrast can better defined extra-axial spaces than the current CT exam although a small potential arachnoid cyst may be present left middle cranial fossa anteriorly.
[2017-05-28 10:17] VITALS: BP 103/66; PULSE 59; RESP 17; TEMP 98.7
[2017-05-28 10:28] VITALS: O2SAT 97
--- NOTE | 2017-05-28 11:59 | RAD ---
HISTORY: paresthesias COMPARISON: Portable chest 04/13/2017 TECHNIQUE: Chest PA and lateral FINDINGS: LUNGS: No active pulmonary disease. PLEURA: No significant pleural effusion identified. No pneumothorax apparent. CARDIOVASCULAR: Normal. OSSEOUS STRUCTURES: No significant abnormalities. VISUALIZED UPPER ABDOMEN: Normal. OTHER FINDINGS: None. IMPRESSION: No acute cardiopulmonary disease or significant change compared prior chest radiograph 04/13/2017.
== END 2017-05-28 11:08 | disposition home or self-care (01) ==
LOC: C.ER 07:37
DX: N39.0 Urinary tract infection, site not specified (principal); R20.2 Paresthesia of skin

== ENCOUNTER 2017-06-15 06:48 | Day surgery (SDC) | payer MEDICARE, BC ==
[2017-06-15 07:16] VITALS: BMI 33.2
[2017-06-15] MEDS ORDERED: Propofol 10 mg/ml Inj (20 ML) ONE (07:57)
[2017-06-15] MEDS ORDERED: Lactated Ringer's 500 ML IV ONE ×2 (07:57)
[2017-06-15] MEDS ORDERED: Phenylephrine 10 mg/ml Inj ONE (07:59)
[2017-06-15] MEDS ORDERED: Midazolam 2 MG/2 ML VIAL ONE (07:59)
--- NOTE | 2017-06-15 08:19 | CP.SDSHP ---
Same Day Surgery H & P - History Proposed Procedure: egd Pre-Op Diagnosis: dysphagia. epigastric pain. heartburn - Previous Medical/Surgical History Cardiac: Hypertension Pulmonary: Emphysema/COPD Endocrine/Metabolic: Thyroid Disease, Obesity Misc: Other (djd, diverticulosis, gallstones, gerd, UTI's) Pain: 3. Previous Surgical History: appendix. partial hysterectomy. Left shoulder surgery. lens implants bilat - Allergies Allergies: Allergies amoxicillin [From Augmentin] Allergy (Verified 05/28/17 07:50) ciprofloxacin [From Cipro] Allergy (Verified 05/28/17 07:50) clavulanic acid [From Augmentin] Allergy (Verified 05/28/17 07:50) iodine Allergy (Verified 05/28/17 07:50) levofloxacin [From Levaquin] Allergy (Verified 05/28/17 07:50) metronidazole [From Flagyl] Allergy (Verified 05/28/17 07:50) sulfamethoxazole [From Bactrim] Allergy (Verified 05/28/17 07:50) theophylline Allergy (Verified 05/28/17 07:50) trimethoprim [From Bactrim] Allergy (Verified 05/28/17 07:50) - Physical Exam Vital Signs: Vital Signs 06/15/17 07:16 Temperature 98.4 F Pulse Rate 73 Respiratory 18 Rate Blood Pressure 93/79 L O2 Sat by Pulse 98 Oximetry Mental Status: Alert & Oriented x3 Neuro: WNL Heart: WNL Lungs: WNL GI: WNL - Impression Impression: dysphagia. heartburn. epigastric pain Pt. Evaluated Today:Candidate for Anesthesia & Procedure: Yes - Date & Time Date: 06/15/17 Time: 08:19 Short Stay Discharge - Short Stay Discharge Admitting Diagnosis/Reason for Visit: HEARTBURN, EPIGASTRIC PAIN, GERD WITH ESOPHAGITIS Disposition: HOME/ ROUTINE
[2017-06-15] MEDS ORDERED: Pantoprazole 40 mg EC Tab PO STA (08:20)
[2017-06-15 08:56] VITALS: TEMP 97.6
[2017-06-15 09:13] VITALS: O2SAT 100
[2017-06-15 10:05] VITALS: PULSE 68; RESP 16
[2017-06-15 10:40] VITALS: BP 150/70
== END 2017-06-15 09:50 | disposition home or self-care (01) ==
LOC: C.ENDO 06:48
PROVIDERS: ATTEND Internal Medicine Gastroenterology
DX: K21.0 Gastro-esophageal reflux disease with esophagitis (principal); K20.9 Esophagitis, unspecified; K44.9 Diaphragmatic hernia without obstruction or gangrene; K29.70 Gastritis, unspecified, without bleeding
CPT/HCPCS: 43239; 88305; 88312; 88342; J2250; J2370; J2704; J7120

== ENCOUNTER 2017-07-17 09:58 | Emergency (ER) | payer MEDICARE, BC ==
[2017-07-17 09:58] VITALS: BMI 33.2
[2017-07-17 10:08] VITALS: BP 166/77; PULSE 80; RESP 18; TEMP 97.8; O2SAT 97
--- NOTE | 2017-07-17 10:28 | C.PDOC ---
History Of Present Illness PERSIST GROIN RASH X SEV WEEKS, INTERMIT FACE AND NECK RASH X 1 WEEK. PS INITIALLY THOUGHT WAS JOCK ITCH, IMPROVE RELIEF W CLOTRIMASONE AND LATER TRIED TOLNAFTATE BY PMD BUT STILL W PERSIST REDNESS IN AREA. SAW PMD 07/12 REFERRED TO DERM. SAW DERM 07/14, GIVEN "TRIPLE PASTE" BUT MADE SKIN BURN AND REDNESS WORSE. PS SELF DC. RECENT CHANGE IN LYRICA DOSE. PS SPOKE W DR VERONICA, STATED "IT 'S NOT THAT" AND ADVISED COME TO ER FOR POSSIBLE STEROID. PRIOR ER EVAL FOR SKIN ALLERGIC RXN. HO MULT ALLERGIES PMHx of HTN, Hypothyroidism, Seizure Disorder, HLD, COPD, GERD, and Hemangioma EXAM NAD HEENT NO ANGIOEDEMA SKIN SCATTERED HIVES FACE, L NECK. MIN ERYTHEMA B/L GROIN SKIN FOLDS REMAINDER NEG MDM PROBABLE MED INTERACTION/REACTION UNK CAUSE. HO MULTIPLE DRUG SENSITIVIES. DC PREDNISONE, KEEP GROIN DRY, CONSIDER LYRICA DOSE CHANGE AFTER D/W NEUROLOGIST Time Seen by Provider: 07/17/17 10:27 Chief Complaint (Nursing): Abnormal Skin Integrity History Per: Patient History/Exam Limitations: no limitations Onset/Duration Of Symptoms: Days Past Medical History Reviewed: Historical Data, Nursing Documentation, Vital Signs Vital Signs: Last Vital Signs Temp 97.8 F 07/17/17 10:05 Pulse 80 07/17/17 10:05 Resp 18 07/17/17 10:05 BP 166/77 H 07/17/17 10:05 Pulse Ox 97 07/17/17 10:49 - Medical History PMH: Asthma, COPD, Diverticulitis (Diverticulosis), Gastritis, HTN, Hypercholesterolemia, Hypothyroidism, Seizures (LAST SEIZURE 2011) Surgical History: Appendectomy (3 YRS. OLD), Endoscopy - [facility] Procedures CLOSED ENDOSCOPIC BIOPSY OF LARGE INTESTINE (07/31/14) INSERTION OF INFUSION DEV INTO SUP VENA CAVA, PERC APPROACH (04/08/17) Family History: States: No Known Family Hx - Social History Hx Tobacco Use: No Hx Alcohol Use: No Hx Substance Use: No - Immunization History Hx Tetanus Toxoid Vaccination: No Hx Influenza Vaccination: No Hx Pneumococcal Vaccination: No Review Of Systems Except As Marked, All Systems Reviewed And Found Negative. Constitutional: Negative for: Fever Genitourinary: Negative for: Dysuria, Hematuria Skin: Positive for: Rash (Groin area. Face. Neck. ) Physical Exam - Physical Exam Appears: Non-toxic, No Acute Distress Skin: Warm, Dry, Other ((+) Scattered hives to the face, left side of neck. Minimal errythema to the bilateral groin skin folds.) Head: Atraumatic, Normacephalic Oral Mucosa: Moist Neck: Normal, Normal ROM, Supple Chest: Symmetrical, No Tenderness Cardiovascular: Rhythm Regular, No Murmur Respiratory: Normal Breath Sounds, No Rales, No Rhonchi, No Stridor, No Wheezing Gastrointestinal/Abdominal: Normal Exam, Soft, No Tenderness, No Guarding, No Rebound Extremity: Normal ROM, No Swelling Neurological/Psych: Oriented x3, Normal Speech, Normal Motor ED Course And Treatment O2 Sat by Pulse Oximetry: 97 (RA) Pulse Ox Interpretation: Normal Medical Decision Making Medical Decision Making: PLAN: * Prednisone PO NOTE: Probable medicine interaction/reaction unknown cause. History of multiple drug sensitives. Discharged with prednisone. Advised to keep groin area dry and consider to have the dosage of Lyrica change after discussing with neurologist. Disposition Counseled Patient/Family Regarding: Diagnosis, Need For Followup, Rx Given - Disposition Referrals: YOUR,PAINTING MANAGER [Other] Disposition: HOME/ ROUTINE Disposition Time: 10:39 Condition: IMPROVED Prescriptions: predniSONE [predniSONE Tab] 60 mg PO DAILY #14 tab Instructions: Urticaria (ED) Forms: [facility] (Tongan) - Clinical Impression Clinical Impression: Allergic reaction - Scribe Statement The provider has reviewed the documentation as recorded by the Justoibestefani Aguila Provider Attestation: All medical record entries made by the Tracey were at my direction and personally dictated by me. I have reviewed the chart and agree that the record accurately reflects my personal performance of the history, physical exam, medical decision making, and the department course for this patient. I have also personally directed, reviewed, and agree with the discharge instructions and disposition.
== END 2017-07-17 10:55 | disposition home or self-care (01) ==
LOC: C.ER 09:58
DX: T78.49XA Other allergy, initial encounter (principal); X58.XXXA Exposure to other specified factors, initial encounter

== ENCOUNTER 2017-07-24 07:39 | Observation (INO) | payer MEDICARE, BC ==
[2017-07-24 07:39] VITALS: BMI 33.2
[2017-07-24] MEDS ORDERED: Sodium Chloride 0.9% 500 ML IV ONE (08:04)
[2017-07-24] MEDS ORDERED: DiphenhydrAMINE 50 mg/ml Inj IVP STA (08:08)
[2017-07-24] MEDS ORDERED: Albuterol 0.083% Inhal Sol (2.5 mg/3 mL) UD IH STA (08:08)
[2017-07-24] MEDS ORDERED: MethylPREDNISolone 40 mg Vial IVP STA (08:08)
[2017-07-24 08:19] LABS: BASO # 0.1 K/uL (0.0-0.2); BASO % 0.9 % (0.0-2.0); EOS # 0.2 K/uL (0.0-0.7); EOS % 3.1 % (0.0-4.0); HEMATOCRIT 37.8 % (34.0-47.0); LYMPH # 1.7 K/uL (1.0-4.3); LYMPH % 23.5 % (20.0-40.0); MEAN CELL VOLUME 81.5 fL (81.0-99.0); MEAN CORPUSCULAR HEMOGLOBIN 27.5 pg (27.0-31.0); MEAN CORPUSCULAR HGB CONC 33.8 g/dL (33.0-37.0); MEAN PLATELET VOLUME 7.4 fL (7.2-11.7); MONO # 0.9 K/uL (0.0-0.8); MONO % 12.1 % (0.0-10.0); NRBC % 0.1 % (0.0-2.0); RED CELL DISTRIBUTION WIDTH 14.4 % (11.5-14.5); WHITE BLOOD COUNT 7.2 K/uL (4.8-10.8)
[2017-07-24] MEDS ORDERED: Albuterol 0.083% Inhal Sol (2.5 mg/3 mL) UD ONE (08:24)
[2017-07-24 08:29] LABS: CHLORIDE 97 mmol/L (98-107)
[2017-07-24 08:30] LABS: POTASSIUM 3.3 mmol/L (3.6-5.2); SODIUM 134 mmol/L (132-148)
[2017-07-24 08:32] LABS: ALB/GLOB RATIO 1.3 (1.0-2.1); ALKALINE PHOSPHATASE 74 U/L (38-126); AST/SGOT 18 U/L (14-36); BILIRUBIN,TOTAL 1.4 mg/dL (0.2-1.3); BLOOD UREA NITROGEN 14 mg/dL (7-17); CARBON DIOXIDE 26 mmol/L (22-30); GFR AFRICAN-AMERICAN > 60; TOTAL PROTEIN 7.1 g/dL (6.3-8.3)
[2017-07-24 08:33] LABS: ALT/SGPT 43 U/L (9-52); CALCIUM 9.3 mg/dl (8.6-10.4); GLUCOSE,RANDOM 90 mg/dL (65-105)
[2017-07-24] MEDS ORDERED: DiphenhydrAMINE 50 mg/ml Inj ONE (08:37)
[2017-07-24] MEDS ORDERED: MethylPREDNISolone 40 mg Vial ONE (08:38)
[2017-07-24] MEDS ORDERED: Sodium Chloride 0.9% 1,000 ML ONE (08:38)
[2017-07-24] MEDS ORDERED: Potassium Chloride 20 mEq ER Tab PO STA (08:48)
--- NOTE | 2017-07-24 09:30 | C.PDOC ---
History Of Present Illness 67-year-old female, PMHx includes Hypertension, Hypothyroidism, Hypercholesterolemia, Seizure Disorder, Hyperlipidemia, COPD, GERD, and Hemangioma, presents to the emergency department with complaints of chest tightness that started last night. Patient describes the pain as a mid-sternal pressure. States this feels different than her usual COPD symptoms. Patient saw her PMD two days ago for a rash that she has had intermittently for a few months ("its better now".) and he started her on steroids. Quit smoking 30 years ago. Patient also notes associated muscle cramps. Denies wheezing or shortness of breath. No other complaints at this time. Time Seen by Provider: 07/24/17 07:54 Chief Complaint (Nursing): Chest Pain History Per: Patient History/Exam Limitations: no limitations Onset/Duration Of Symptoms: Days Current Symptoms Are (Timing): Still Present Severity: Moderate Past Medical History Reviewed: Historical Data, Nursing Documentation, Vital Signs Vital Signs: Last Vital Signs Temp 97.7 F 07/24/17 11:27 Pulse 78 07/24/17 16:10 Resp 18 07/24/17 11:49 BP 146/82 07/24/17 11:27 Pulse Ox 96 07/24/17 11:27 - Medical History PMH: Asthma, COPD, Diverticulitis (Diverticulosis), Gastritis, HTN, Hypercholesterolemia, Hypothyroidism, Seizures (LAST SEIZURE 2011) Denies: Atrial Fibrillation, Chronic Kidney Disease Surgical History: Appendectomy (3 YRS. OLD), Endoscopy - [facility] Procedures CLOSED ENDOSCOPIC BIOPSY OF LARGE INTESTINE (07/31/14) INSERTION OF INFUSION DEV INTO SUP VENA CAVA, PERC APPROACH (04/08/17) Family History: States: No Known Family Hx - Social History Hx Tobacco Use: No Hx Alcohol Use: No Hx Substance Use: No - Immunization History Hx Tetanus Toxoid Vaccination: No Hx Influenza Vaccination: Yes (2017) Hx Pneumococcal Vaccination: No Review Of Systems Except As Marked, All Systems Reviewed And Found Negative. Constitutional: Negative for: Fever, Chills Cardiovascular: Positive for: Chest Pain Respiratory: Negative for: Shortness of Breath, Wheezing Gastrointestinal: Negative for: Vomiting Musculoskeletal: Negative for: Back Pain Skin: Positive for: Rash Physical Exam - Physical Exam Appears: Non-toxic, No Acute Distress Skin: Warm, Dry, No Rash Head: Atraumatic, Normacephalic Eye(s): bilateral: Normal Inspection, PERRL, EOMI Nose: Normal Oral Mucosa: Moist Neck: Normal ROM, Supple Lymphatic: Normal Exam Chest: Symmetrical Cardiovascular: Rhythm Regular, No Murmur Respiratory: Normal Breath Sounds, No Accessory Muscle Use, No Rales, No Rhonchi , No Wheezing Gastrointestinal/Abdominal: Soft, No Tenderness Extremity: Normal ROM Neurological/Psych: Oriented x3, Normal Speech ED Course And Treatment - Laboratory Results Result Diagrams: 07/24/17 08:16 07/24/17 08:16 ECG: Interpreted By Me, Viewed By Me ECG Rhythm: Sinus Rhythm ECG Interpretation: No Acute Changes Rate From EC O2 Sat by Pulse Oximetry: 98 (on RA) Pulse Ox Interpretation: Normal - Radiology CXR: Interpreted by Me, Viewed By Me CXR Interpretation: Yes: No Acute Disease Progress Note: Blood work, EKG, Chest X-Ray and Peak flow ordered and reviewed. Patient treated with Duoneb, Keppra, IVFs and Benadryl. Case discussed with hospitalist, Dr. Hernandez, agrees with plan to admit patient for observation and tx. Disposition - Disposition Disposition: HOSPITALIZED Disposition Time: 11:00 Condition: STABLE - Clinical Impression Clinical Impression: Chest pain - Scribe Statement The provider has reviewed the documentation as recorded by the Scribe (Tu Manjarrez) All medical record entries made by the Scribe were at my direction and personally dictated by me. I have reviewed the chart and agree that the record accurately reflects my personal performance of the history, physical exam, medical decision making, and the department course for this patient. I have also personally directed, reviewed, and agree with the discharge instructions and disposition.
[2017-07-24] MEDS ORDERED: Potassium Chloride 20 mEq ER Tab PO ONE (09:34)
--- NOTE | 2017-07-24 11:32 | CP.PCM.HP ---
History of Present Illness - History of Present Illness History of Present Illness: PGY1 Medicine Note for Dr. Getachew Hernandez Patient is a 67 year old female with a past medical history of COPD, HTN, Hypothyroidism, HLD, Seizure Disorder, GERD, Hemangioma, Chronic UTI and diverticulitis (admitted 04/08/17-04/13/17). Patient is presenting to the emergency room with chest pressure. The patient states that she first noticed the chest pressure approximately 3-4 days ago. It has been progressively getting worse over that time. Last night the pressure got extensively worse. She states she went to bed and woke up feeling even worse. The chest pressure was located midline, substernally. It did not radiate. The patient states she got short of breathe. The patient states she has had these symptoms before and it feels exactly like when her COPD gets worse. The patient reports coming to the emergency room on 07/17/17 for a rash located in her groin and intermittently on her face and neck. Patient was started on a steroid taper by the ED physician, Prednisone 60mg BID on day 1, 50mg once on day 2, 40mg once on day 3, 30mg once on day 4, 20mg once on day 5 and 10mg once on day 6. Patient went to see PMD Dr. Castro on 07/22/17 for continued complaint of rash , was started on Prednisone taper 20mg for 5 days then 10mg for 14 days. PMHx: HTN, Hypothyroidism, HLD, Seizure Disorder, COPD, GERD, Hemangioma PSHx: Hysterectomy, implanted lens in both eyes Meds: As per DEC All: As noted above SHx: Stopped smoking 30 years ago, denied any alcohol or illicit drug use FHx: Unremarkble PMD: Dr. Hernandez GI: Siegal Derm: Rudy Neuro: Raúl Present on Admission - Present on Admission Any Indicators Present on Admission: No Review of Systems - Constitutional Constitutional: absent: Anorexia, Chills, Weakness - EENT Eyes: absent: Change in Vision Nose/Mouth/Throat: absent: Nasal Congestion, Nasal Discharge - Cardiovascular Cardiovascular: Chest Pain at Rest, Dyspnea. absent: Leg Edema, Palpitations, Pedal Edema, Syncope - Respiratory Respiratory: Dyspnea on Exertion. absent: Cough, Hemoptysis, Pain on Inspiration - Gastrointestinal Gastrointestinal: absent: Abdominal Pain, Constipation, Diarrhea, Dysphagia, Nausea, Vomiting - Musculoskeletal Musculoskeletal: absent: Back Pain, Numbness, Stiffness, Tingling - Integumentary Integumentary: As Per HPI, Unusual Bruising - Neurological Neurological: Behavioral Changes. absent: Dizziness, Numbness - Endocrine Endocrine: absent: Fatigue, Palpitations - Hematologic/Lymphatic Hematologic: absent: Lymphadenopathy Past Patient History - Infectious Disease Hx of Infectious Diseases: None - Past Medical History & Family History Past Medical History?: Yes - Past Social History Smoking Status: Former Smoker - CARDIAC Hx Atrial Fibrillation: No Hx Hypercholesterolemia: Yes Hx Hypertension: Yes - PULMONARY Hx Asthma: Yes Hx Chronic Obstructive Pulmonary Disease (COPD): Yes - NEUROLOGICAL Hx Seizures: Yes (LAST SEIZURE 2011) - HEENT Hx HEENT Problems: Yes Hx Cataracts: Yes Hx Glaucoma: Yes Other/Comment: implanted LENS to both eyes - RENAL Hx Chronic Kidney Disease: No - ENDOCRINE/METABOLIC Hx Hypothyroidism: Yes - INTEGUMENTARY Hx Dermatological Problems: No - MUSCULOSKELETAL/RHEUMATOLOGICAL Hx Musculoskeletal Disorders: Yes Hx Herniated Disk: Yes (THORACIC AND LUMBAR) - GASTROINTESTINAL Hx Diverticulitis: Yes (Diverticulosis) Hx Gastritis: Yes - GENITOURINARY/GYNECOLOGICAL Hx Genitourinary Disorders: No - PSYCHIATRIC Hx Substance Use: No - SURGICAL HISTORY Hx Appendectomy: Yes (5 YRS. OLD) - ANESTHESIA Hx Anesthesia: Yes Hx Anesthesia Reactions: No Hx Malignant Hyperthermia: No Meds Allergies/Adverse Reactions: Allergies Allergy/AdvReac Type Severity Reaction Status Date / Time amoxicillin [From Augmentin] Allergy Verified 07/17/17 10:09 ciprofloxacin [From Cipro] Allergy Verified 07/17/17 10:09 clavulanic acid Allergy Verified 07/17/17 10:09 [From Augmentin] iodine Allergy Verified 07/17/17 10:09 levofloxacin [From Levaquin] Allergy Verified 07/17/17 10:09 metronidazole [From Flagyl] Allergy Verified 07/17/17 10:09 Sulfa (Sulfonamide Allergy Verified 07/17/17 10:09 Antibiotics) sulfamethoxazole Allergy Verified 07/17/17 10:09 [From Bactrim] theophylline Allergy Verified 07/17/17 10:09 trimethoprim [From Bactrim] Allergy Verified 07/17/17 10:09 Physical Exam - Constitutional Appears: Well, No Acute Distress - Head Exam Head Exam: ATRAUMATIC, NORMOCEPHALIC - Eye Exam Eye Exam: EOMI, Normal appearance. absent: Scleral icterus - ENT Exam ENT Exam: Mucous Membranes Moist - Neck Exam Neck exam: Positive for: Normal Inspection. Negative for: Lymphadenopathy, Tenderness - Respiratory Exam Respiratory Exam: Clear to Auscultation Bilateral, NORMAL BREATHING PATTERN. absent: Accessory Muscle Use, Rales, Rhonchi, Wheezes, Respiratory Distress - Cardiovascular Exam Cardiovascular Exam: REGULAR RHYTHM, +S1, +S2. absent: JVD - GI/Abdominal Exam GI & Abdominal Exam: Normal Bowel Sounds, Soft. absent: Distended, Firm, Guarding, Hernia, Rebound, Rigid, Tenderness - Rectal Exam Additional comments: no rash seen - Exam Additional comments: no rash seen - Extremities Exam Extremities exam: Positive for: normal capillary refill, normal inspection, pedal pulses present. Negative for: calf tenderness, pedal edema - Back Exam Back exam: absent: CVA tenderness (L), CVA tenderness (R), paraspinal tenderness , vertebral tenderness - Neurological Exam Neurological exam: Alert, CN II-XII Intact, Oriented x3 - Psychiatric Exam Psychiatric exam: Normal Mood - Skin Skin Exam: Dry, Intact, Normal Color, Warm Additional comments: no rash located anywhere on body (face, neck or groin). Results - Vital Signs Recent Vital Signs: Last Vital Signs Temp 98 F 07/24/17 10:41 Pulse 73 07/24/17 10:41 Resp 16 07/24/17 10:41 BP 112/65 07/24/17 10:41 Pulse Ox 98 07/24/17 10:41 - Labs Result Diagrams: 07/24/17 08:16 07/24/17 08:16 Labs: Laboratory Results - last 24 hr 07/24/17 07/24/17 08:16 08:16 WBC 7.2 RBC 4.63 Hgb 12.8 Hct 37.8 MCV 81.5 MCH 27.5 MCHC 33.8 RDW 14.4 Plt Count 319 MPV 7.4 Neut % (Auto) 60.4 Lymph % (Auto) 23.5 [place] % (Auto) 12.1 H Eos % (Auto) 3.1 Baso % (Auto) 0.9 Neut # 4.3 Lymph # 1.7 [place] # 0.9 H Eos # 0.2 Baso # 0.1 Sodium 134 Potassium 3.3 L Chloride 97 L Carbon Dioxide 26 Anion Gap 15 BUN 14 Creatinine 0.6 L Est GFR ( Amer) > 60 Est GFR (Non-Af Amer) > 60 Random Glucose 90 Calcium 9.3 Total Bilirubin 1.4 H AST 18 ALT 43 Alkaline Phosphatase 74 Total Creatine Kinase 87 CK-MB (Mass) 2.09 Troponin I < 0.0120 NT-Pro-B Natriuret Pep 241 Total Protein 7.1 Albumin 4.0 Globulin 3.0 Albumin/Globulin Ratio 1.3 Assessment & Plan - Assessment and Plan (Free Text) Plan: Atypical Chest Pain * Cardio Consult, Dr. Small * Troponins neg x2, f/u trop at 8:15p * EKG - NSR @66bpm, No ST elevations, no acute changes Rash * Steroid taper by the ED physician on 07/17/17, Prednisone 60mg BID on day 1, 50mg once on day 2, 40mg once on day 3, 30mg once on day 4, 20mg once on day 5 and 10mg once on day 6. Patient went to see PMD Dr. Castro on 07/22/17 for continued complaint of rash, was started on Prednisone taper 20mg for 5 days then 10mg for 14 days. * No rash was seen on body, including groin area, face, neck, back or buttocks. * Patient complaining of itching, relieved with Benadryl 25mg IVP Hypokalemia * K - 3.3 * s/p 20meq KCl in ED * f/u mag * f/u phos * continue to monitor Hx of COPD * Singulair 10mg PO daily * Advair 500/50mg PO INH BID * Duoneb Q6H PRN sob/cough/wheezing Hx of HLD * Crestor 5mg PO QHS Hx of HTN * Irbesartan/HCTZ 300-12.5mg PO daily * f/u lipid panel Hx of Hypothyroidism * Synthroid 112mcg PO daily * f/u free T4 * f/u TSH Hx of Seizures * Keppra 1,250mg PO Q12 * Lyrica 100mg PO BID (not taking since as she believes it caused rash) Hx of GERD * Protonix 40mg PO daily Hx of Chronic UTI * Not experiencing any UTI symptoms at this time * continue to monitor Prophylactic Care * Ambien 5mg PO QHS * Florastor and Calcaium Carbonate/Vit D3 stopped by patient as she believes it caused rash * AsA 325mg PO daily Dispo: Patient can most likely be discharged home in the morning after 3 negative troponins and ekgs. It is believed that this patient's symptoms could have been due to recent steroid use with hx of GERD. Case Discussed with Dr. Getachew Henson PGY1
--- NOTE | 2017-07-24 11:48 | RAD ---
PROCEDURE: CHEST RADIOGRAPH, 1 VIEW HISTORY: SOB COMPARISON: Comparison chest 05/28/2017. Comparison also made with CT scan chest 11/17/2012. FINDINGS: LUNGS: Clear. PLEURA: No pneumothorax or pleural fluid seen. CARDIOVASCULAR: Heart size is upper limits of normal/ borderline enlarged OSSEOUS STRUCTURES: Mild multilevel degenerative spondylosis of the thoracic spine. . No change small osteoma or bone island right humeral head. Mild DJD both shoulder girdles. VISUALIZED UPPER ABDOMEN: Normal. OTHER FINDINGS: None. IMPRESSION: No acute infiltrates.
--- NOTE | 2017-07-24 13:22 | CP.PCM.CON ---
History of Present Illness - History of Present Illness History of Present Illness: 7-year-old female, PMHx includes Hypertension, Hypothyroidism, Seizure Disorder , Hyperlipidemia, COPD, GERD, and Hemangioma, presents to the emergency department with complaints of chest tightness. Pt has had this heaviness off an on for a week, at rest, possible related to being more recombant. Pt does not have DM or CAD. She stopped smoking 30 years ago. Patient describes the pain as a mid-sternal pressure. Last night in the ER she received steroid and inhalation treatment, and felt better. Today, she has chest heaviness again, mild. One troponin is negative, ecg is normal. pt says that she can walk for a bout 20 minutes without chest pressure. Review of Systems - Review of Systems All systems: reviewed and no additional remarkable complaints except (pt reports rash on neck and total body itching and burning, releieved partially by benadryl. pt has been on lyrica and stopped it earlier in the week.) Past Patient History - Infectious Disease Hx of Infectious Diseases: None - Past Medical History & Family History Past Medical History?: Yes - Past Social History Smoking Status: Former Smoker - CARDIAC Hx Atrial Fibrillation: No Hx Hypercholesterolemia: Yes Hx Hypertension: Yes - PULMONARY Hx Asthma: Yes Hx Chronic Obstructive Pulmonary Disease (COPD): Yes - NEUROLOGICAL Hx Seizures: Yes (LAST SEIZURE 2011) - HEENT Hx HEENT Problems: Yes Hx Cataracts: Yes Hx Glaucoma: Yes Other/Comment: implanted LENS to both eyes - RENAL Hx Chronic Kidney Disease: No - ENDOCRINE/METABOLIC Hx Hypothyroidism: Yes - INTEGUMENTARY Hx Dermatological Problems: No - MUSCULOSKELETAL/RHEUMATOLOGICAL Hx Musculoskeletal Disorders: Yes Hx Herniated Disk: Yes (THORACIC AND LUMBAR) - GASTROINTESTINAL Hx Diverticulitis: Yes (Diverticulosis) Hx Gastritis: Yes - GENITOURINARY/GYNECOLOGICAL Hx Genitourinary Disorders: No - PSYCHIATRIC Hx Substance Use: No - SURGICAL HISTORY Hx Appendectomy: Yes (5 YRS. OLD) - ANESTHESIA Hx Anesthesia: Yes Hx Anesthesia Reactions: No Hx Malignant Hyperthermia: No Meds Allergies/Adverse Reactions: Allergies Allergy/AdvReac Type Severity Reaction Status Date / Time amoxicillin [From Augmentin] Allergy Verified 07/17/17 10:09 ciprofloxacin [From Cipro] Allergy Verified 07/17/17 10:09 clavulanic acid Allergy Verified 07/17/17 10:09 [From Augmentin] iodine Allergy Verified 07/17/17 10:09 levofloxacin [From Levaquin] Allergy Verified 07/17/17 10:09 metronidazole [From Flagyl] Allergy Verified 07/17/17 10:09 Sulfa (Sulfonamide Allergy Verified 07/17/17 10:09 Antibiotics) sulfamethoxazole Allergy Verified 07/17/17 10:09 [From Bactrim] theophylline Allergy Verified 07/17/17 10:09 trimethoprim [From Bactrim] Allergy Verified 07/17/17 10:09 - Medications Medications: Current Medications Albuterol/Ipratropium (Duoneb 3 Mg/0.5 Mg (3 Ml) Ud) 1 ml INH Q6H PRN PRN Reason: Sob/cough Aspirin (Aspirin) 325 mg PO DAILY [facility] (Irbesartan/Hydrochlorothiazide [Irbesartan-Hctz 300-12.5 Mg Tb]) 1 tab PO DAILY [facility] Levetiracetam (Keppra) 1,250 mg PO Q12H [facility] Levothyroxine Sodium (Synthroid) 112 mcg PO DAILY@0630 [facility] Montelukast Sodium (Singulair) 10 mg PO QPM [facility] Pregabalin (Lyrica) 300 mg PO Q12H [facility] Rosuvastatin Calcium (Crestor) 5 mg PO HS [facility] Fluticasone/Salmeterol (Advair Diskus 500/50) puff INH DAILY [facility] Zolpidem Tartrate (Ambien) 5 mg PO HS [facility] Physical Exam - Constitutional Appears: Older Than Stated Age - Eye Exam Eye Exam: EOMI, Normal appearance Pupil Exam: NORMAL ACCOMODATION - ENT Exam ENT Exam: Mucous Membranes Moist - Neck Exam Neck exam: Positive for: Normal Inspection - Respiratory Exam Respiratory Exam: Clear to Auscultation Bilateral - Cardiovascular Exam Cardiovascular Exam: REGULAR RHYTHM - GI/Abdominal Exam GI & Abdominal Exam: Normal Bowel Sounds - Exam External exam: NORMAL EXTERNAL EXAM - Extremities Exam Extremities exam: Positive for: normal inspection - Neurological Exam Neurological exam: Alert, CN II-XII Intact, Oriented x3 - Psychiatric Exam Psychiatric exam: Normal Affect, Normal Mood - Skin Skin Exam: Normal Color (mild redness on the base of the neck, but no overt rash ) Results - Vital Signs Recent Vital Signs: Last Vital Signs Temp 97.7 F 07/24/17 11:27 Pulse 68 07/24/17 11:27 Resp 18 07/24/17 11:49 BP 146/82 07/24/17 11:27 Pulse Ox 96 07/24/17 11:27 - Labs Result Diagrams: 07/24/17 08:16 07/24/17 08:16 Labs: Laboratory Results - last 24 hr 07/24/17 07/24/17 08:16 08:16 WBC 7.2 RBC 4.63 Hgb 12.8 Hct 37.8 MCV 81.5 MCH 27.5 MCHC 33.8 RDW 14.4 Plt Count 319 MPV 7.4 Neut % (Auto) 60.4 Lymph % (Auto) 23.5 [place] % (Auto) 12.1 H Eos % (Auto) 3.1 Baso % (Auto) 0.9 Neut # 4.3 Lymph # 1.7 [place] # 0.9 H Eos # 0.2 Baso # 0.1 Sodium 134 Potassium 3.3 L Chloride 97 L Carbon Dioxide 26 Anion Gap 15 BUN 14 Creatinine 0.6 L Est GFR ( Amer) > 60 Est GFR (Non-Af Amer) > 60 Random Glucose 90 Calcium 9.3 Total Bilirubin 1.4 H AST 18 ALT 43 Alkaline Phosphatase 74 Total Creatine Kinase 87 CK-MB (Mass) 2.09 Troponin I < 0.0120 NT-Pro-B Natriuret Pep 241 Total Protein 7.1 Albumin 4.0 Globulin 3.0 Albumin/Globulin Ratio 1.3 - EKG Data EKG Interpreted by: Myself EKG shows normal: Sinus rhythm (normal) Assessment & Plan - Assessment and Plan (Free Text) Assessment: 1. Pressing on patient's sternum lightly easily reproduces her chest pain. Pt has no exertional component, and it seemed to have been temporally relieved with inhalation therapy for COPD. The ecg is normal and intial TNI is normal. The chest pain appears to be non anginal, and no additional work up is advised at this time other than a second troponin for completeness.
[2017-07-24] MEDS ORDERED: Albuterol-Ipratrop 3 mg / 0.5 (3 ml) UD INH PRN (14:00)
[2017-07-24] MEDS ORDERED: DiphenhydrAMINE 50 mg/ml Inj IVP ONE ×2 (16:10→22:30)
[2017-07-24 16:29] VITALS: O2SAT 98
[2017-07-25] MEDS ORDERED: Levothyroxine 112 MCG TAB PO SCH (06:30)
[2017-07-25] MEDS ORDERED: DiphenhydrAMINE 12.5 mg/5 ml LIQ UD (5 ml) PO PRN (06:42)
[2017-07-25 07:28] LABS: EOS # 0.2 K/uL (0.0-0.7); RED CELL DISTRIBUTION WIDTH 14.4 % (11.5-14.5)
[2017-07-25 07:39] LABS: BASO % 0.1 % (0.0-2.0); EOS % 1.7 % (0.0-4.0); HEMATOCRIT 38.2 % (34.0-47.0); LYMPH # 2.3 K/uL (1.0-4.3); LYMPH % 21.3 % (20.0-40.0); MEAN CELL VOLUME 82.4 fL (81.0-99.0); MEAN CORPUSCULAR HEMOGLOBIN 27.8 pg (27.0-31.0); MEAN CORPUSCULAR HGB CONC 33.8 g/dL (33.0-37.0); MEAN PLATELET VOLUME 8.1 fL (7.2-11.7); MONO % 8.8 % (0.0-10.0)
[2017-07-25 07:41] LABS: WHITE BLOOD COUNT 10.9 K/uL (4.8-10.8)
[2017-07-25 07:53] LABS: CHLORIDE 98 mmol/L (98-107); SODIUM 133 mmol/L (132-148)
[2017-07-25 07:54] LABS: POTASSIUM 3.9 mmol/L (3.6-5.2)
[2017-07-25 07:56] LABS: BLOOD UREA NITROGEN 18 mg/dL (7-17); CARBON DIOXIDE 26 mmol/L (22-30); CHOLESTEROL 168 mg/dL (0-199); GFR AFRICAN-AMERICAN > 60
[2017-07-25 07:57] LABS: CALCIUM 9.8 mg/dl (8.6-10.4); GLUCOSE,RANDOM 81 mg/dL (65-105); MAGNESIUM 2.1 mg/dL (1.6-2.3); PHOSPHOROUS 3.5 mg/dL (2.5-4.5)
[2017-07-25] MEDS ORDERED: Fluticasone-Salmeterol 500-50mcg Diskus INH SCH (08:00)
[2017-07-25] MEDS ORDERED: Pantoprazole 40 mg EC Tab PO SCH (08:00)
[2017-07-25 08:22] LABS: THYROID STIMULATING HORMONE 1.19 mIU/L (0.46-4.68)
[2017-07-25 08:56] VITALS: RESP 18; TEMP 97.5
[2017-07-25] MEDS ORDERED: Enoxaparin 40 mg Syringe SC SCH (10:00)
[2017-07-25 11:37] VITALS: BP 121/73; PULSE 73
--- NOTE | 2017-07-25 11:46 | CP.PCM.PN ---
Subjective - Date & Time of Evaluation Date of Evaluation: 07/25/17 Time of Evaluation: 11:30 - Subjective Subjective: Hospitalist Progress Note Patient was seen and examined at 11:30 AM 07/25/17 [id number] 67 year old female who was admitted on 07/24/17 for evaluation of Chest Tightness located in the substeranl area and not radiating. Patient was started on Prednisone by her Special Effects Technician and by her PMD for rash in the inguinal/ groin area (this has resolved) and the steroids may have exacerbated her history of GERD. Troponin x 3 have been negative. She was evaluated by Sofa Inspector Dr. Small and no further workup required. She is no longer complaining of hte chest tightness and she is stable for discharge. Currenty upon FULL ROS NO chest pain NO palpitations NO SOB/Cough/Wheezing NO dysphagia/odynophagia NO abdominal pain NO n/v/d/c (last bowel movement was yesterday and it was normal) NO burning/pain with urination NO paresthesias currently (but she usually has a burning sensation throughout most of her body and states it will be worse if she lays in the hospital bed and therefore is sitting in chair NO headaches NO new changes in vision NO new changes in hearing NO edema Exam: General:AAOx3, NAD HEENT: NCA, EOMI, PERRLA, NO lymphadenopathy, NO thyromegaly, NO pharyngeal erythema/exudate, Nasal Turbinates are moist and nonerythematous Cardio: NS1 and NS2, NO M/R/G Resp: CTA B/L, NO R/R/W GI: BSx4, Soft, NT, ND, NO HSM, NO guarding/rebound tenderness Ext: Pulses are strong and equal, NO edema, Capillary Refill is 2 seconds Neuro: CN II through XII are grossly intact Assessments: 1). Atypical Chest Pain: resolved. Troponin x 3 negative 2). Bilateral Inguinal/Groin Rash: resolved as examined with nurse in ER . She has follow up scheduled with her Special Effects Technician Dr. Grant 07/26/17 3). Hypokalemia: resolved after repletion 4). Hx COPD 5). Hx HLD 6). Hx HTN 7). Hx Hypothyroid 8). Hx Seizures 9). Hx GERD 10. Hx Chronic UTI I spoke with patient and confirmed that she has enough of her home medications She is currently stable for discharge. The following instructions were gone over with the patient verbally and a copy will be provided to her upon discharge: 1). Continue your home medications of which you stated you had enough of at home. 2). DO NOT TAKE the Prednisone prescribed to you by Dr. Castro as your rash has resolved. 3). Follow up with your Special Effects Technician Dr. Grant as scheduled for 07/26/17 for check up on your rash as well as biopsy results of the left lower leg biopsy results 4). Continue your Lyrica at 100 mg 1 tablet by mouth 3x/day as originally instructed by your Neurologist Dr. Olsen. 5). Schedule follow up with your Primary Care Physicians Drs. Hernandez/Gloria in 7 to 10 days. 6). You may take Benadryl 25 mg 1 tablet by mouth every 8 hours as needed for itchiness. Remember that this can make you drowsy and dry. Please stay well hydrated with water. 7). Please take care and be well. Jae Hernandez D.O. Objective - Vital Signs/Intake and Output Vital Signs (last 24 hours): Temp Pulse Resp BP Pulse Ox 97.5 F L 73 18 121/73 98 07/25/17 08:55 07/25/17 09:30 07/25/17 08:55 07/25/17 09:30 07/25/17 08:55 - Medications Medications: Current Medications Albuterol/Ipratropium (Duoneb 3 Mg/0.5 Mg (3 Ml) Ud) 3 ml INH RQ6 PRN PRN Reason: Sob/cough Aspirin (Aspirin) 325 mg PO DAILY [facility] Last Admin: 07/25/17 09:29 Dose: 325 mg Diphenhydramine HCl (Benadryl) 12.5 mg PO Q6H PRN PRN Reason: itchiness Enoxaparin Sodium (Lovenox) 40 mg SC DAILY [facility] Last Admin: 07/25/17 09:31 Dose: 40 mg Levetiracetam (Keppra) 1,000 mg PO Q12H [facility] Last Admin: 07/25/17 09:29 Dose: 1,000 mg Levetiracetam (Keppra) 250 mg PO Q12H [facility] Last Admin: 07/25/17 09:30 Dose: 250 mg Levothyroxine Sodium (Synthroid) 112 mcg PO DAILY@0630 [facility] Last Admin: 07/25/17 06:31 Dose: 112 mcg Losartan Potassium (Cozaar) 100 mg PO DAILY [facility] Last Admin: 07/25/17 09:30 Dose: 100 mg Montelukast Sodium (Singulair) 10 mg PO QPM [facility] Last Admin: 07/24/17 17:12 Dose: 10 mg Pantoprazole Sodium (Protonix Ec Tab) 40 mg PO 0800 [facility] Last Admin: 07/25/17 08:04 Dose: 40 mg Pregabalin (Lyrica) 100 mg PO Q12H [facility] Last Admin: 07/25/17 06:34 Dose: 100 mg Rosuvastatin Calcium (Crestor) 5 mg PO HS [facility] Last Admin: 07/24/17 21:28 Dose: 5 mg Fluticasone/Salmeterol (Advair Diskus 500/50) 1 puff INH RQ12 [facility] Zolpidem Tartrate (Ambien) 5 mg PO HS [facility] Last Admin: 07/24/17 22:29 Dose: 5 mg - Labs Labs: 07/25/17 07:16 07/25/17 07:16
--- NOTE | 2017-07-25 14:27 | CP.PCM.DIS ---
<Lindsey Ness - Last Filed: 07/25/17 17:51> Provider - Provider Date of Admission: 07/24/17 09:36 Attending physician: Jae Hernandez MD Consults: Cardio - Dr. Small Time Spent in preparation of Discharge (in minutes): 40 Diagnosis - Discharge Diagnosis (1) Chest pain Status: Resolved (2) Gastroesophageal reflux disease Status: Chronic Hospital Course - Lab Results Lab Results: Most Recent Lab Values WBC 10.9 K/uL (4.8-10.8) H D 07/25/17 07:16 RBC 4.64 Mil/uL (3.80-5.20) 07/25/17 07:16 Hgb 12.9 g/dL (11.0-16.0) 07/25/17 07:16 Hct 38.2 % (34.0-47.0) 07/25/17 07:16 MCV 82.4 fL (81.0-99.0) 07/25/17 07:16 MCH 27.8 pg (27.0-31.0) 07/25/17 07:16 MCHC 33.8 g/dL (33.0-37.0) 07/25/17 07:16 RDW 14.4 % (11.5-14.5) 07/25/17 07:16 Plt Count 317 K/uL (130-400) 07/25/17 07:16 MPV 8.1 fL (7.2-11.7) 07/25/17 07:16 Neut % (Auto) 68.1 % (50.0-75.0) 07/25/17 07:16 Lymph % (Auto) 21.3 % (20.0-40.0) 07/25/17 07:16 [place] % (Auto) 8.8 % (0.0-10.0) 07/25/17 07:16 Eos % (Auto) 1.7 % (0.0-4.0) 07/25/17 07:16 Baso % (Auto) 0.1 % (0.0-2.0) 07/25/17 07:16 Neut # 7.5 K/uL (1.8-7.0) H 07/25/17 07:16 Lymph # 2.3 K/uL (1.0-4.3) 07/25/17 07:16 [place] # 1.0 K/uL (0.0-0.8) H 07/25/17 07:16 Eos # 0.2 K/uL (0.0-0.7) 07/25/17 07:16 Baso # 0.0 K/uL (0.0-0.2) 07/25/17 07:16 Sodium 133 mmol/L (132-148) 07/25/17 07:16 Potassium 3.9 mmol/L (3.6-5.2) 07/25/17 07:16 Chloride 98 mmol/L (98-107) 07/25/17 07:16 Carbon Dioxide 26 mmol/L (22-30) 07/25/17 07:16 Anion Gap 13 (10-20) 07/25/17 07:16 BUN 18 mg/dL (7-17) H 07/25/17 07:16 Creatinine 0.9 mg/dL (0.7-1.2) 07/25/17 07:16 Est GFR ( Amer) > 60 07/25/17 07:16 Est GFR (Non-Af Amer) > 60 07/25/17 07:16 Random Glucose 81 mg/dL (65-105) 07/25/17 07:16 Calcium 9.8 mg/dl (8.6-10.4) 07/25/17 07:16 Phosphorus 3.5 mg/dL (2.5-4.5) 07/25/17 07:16 Magnesium 2.1 mg/dL (1.6-2.3) 07/25/17 07:16 Total Bilirubin 1.4 mg/dL (0.2-1.3) H 07/24/17 08:16 AST 18 U/L (14-36) 07/24/17 08:16 ALT 43 U/L (9-52) 07/24/17 08:16 Alkaline Phosphatase 74 U/L (38-126) 07/24/17 08:16 Total Creatine Kinase 87 U/L (30-135) 07/24/17 08:16 CK-MB (Mass) 2.09 ng/mL (0.0-3.38) 07/24/17 08:16 Troponin I < 0.0120 ng/mL (0.00-0.120) 07/24/17 20:49 NT-Pro-B Natriuret Pep 241 pg/mL (0-900) 07/24/17 08:16 Total Protein 7.1 g/dL (6.3-8.3) 07/24/17 08:16 Albumin 4.0 g/dL (3.5-5.0) 07/24/17 08:16 Globulin 3.0 gm/dL (2.2-3.9) 07/24/17 08:16 Albumin/Globulin Ratio 1.3 (1.0-2.1) 07/24/17 08:16 Triglycerides 73 mg/dL (0-149) 07/25/17 07:16 Cholesterol 168 mg/dL (0-199) 07/25/17 07:16 LDL Cholesterol Direct 70 mg/dL (0-129) 07/25/17 07:16 HDL Cholesterol 85 mg/dL (30-70) H 07/25/17 07:16 Free T4 1.16 ng/dL (0.78-2.19) 07/25/17 07:16 TSH 3rd Generation 1.19 mIU/L (0.46-4.68) 07/25/17 07:16 - Hospital Course Hospital Course: 67 year old female who was admitted on 07/24/17 for evaluation of Chest Tightness located in the substeranl area and not radiating. Patient was started on Prednisone by her Pad Cutter and by her PMD for rash in the inguinal/ groin area (this has resolved) and the steroids may have exacerbated her history of GERD. Troponin x 3 have been negative. She was evaluated by [facility] Dr. Small and no further workup required. She is no longer complaining of chest tightness and she is stable for discharge. Patient will continue with her home medications which she states she has enough of at home. She will follow up with Pad Cutter (Dr. Grant) as scheduled on 07/26/17. She will continue her lyrica as instructed by her neurologist (Dr. Olsen). Patient is to schedule a follow up visit with his primary care physicians (Drs. Hernandez/Timmy) within 7-10 days. She has been told she can take Benadryl 25mg Q8 PRN for itchiness. Patient is agreeable to plan and medications. The following instructions were gone over with the patient verbally and a copy will be provided to her upon discharge: 1). Continue your home medications of which you stated you had enough of at home. 2). DO NOT TAKE the Prednisone prescribed to you by Dr. Castro as your rash has resolved. 3). Follow up with your Pad Cutter Dr. Grant as scheduled for 07/26/17 for check up on your rash as well as biopsy results of the left lower leg biopsy results 4). Continue your Lyrica at 100 mg 1 tablet by mouth 3x/day as originally instructed by your Neurologist Dr. Olsen. 5). Schedule follow up with your Primary Care Physicians Drs. Hernandez/Gloria in 7 to 10 days. 6). You may take Benadryl 25 mg 1 tablet by mouth every 8 hours as needed for itchiness. Remember that this can make you drowsy and dry. Please stay well hydrated with water. 7). Please take care and be well. Patient seen, examined, and discussed with Attending (Dr. Hernandez) Lindsey Ness PGY-1 - Date & Time of H&P Date of H&P: 07/25/17 Time of H&P: 14:38 Discharge Exam - Head Exam Head Exam: ATRAUMATIC, NORMOCEPHALIC - Eye Exam Eye Exam: EOMI - ENT Exam ENT Exam: Mucous Membranes Moist - Respiratory Exam Respiratory Exam: Clear to PA & Lateral. absent: Accessory Muscle Use, Wheezes - Cardiovascular Exam Cardiovascular Exam: RRR, +S1, +S2 - GI/Abdominal Exam GI & Abdominal Exam: Soft. absent: Tenderness - Extremities Exam Extremities exam: normal capillary refill Additional comments: no pedal edema - Neurological Exam Neurological exam: Alert, Oriented x3 - Psychiatric Exam Psychiatric exam: Normal Affect, Normal Mood - Skin Skin Exam: Dry, Intact, Normal Color, Warm Discharge Plan - Follow Up Plan Condition: STABLE Disposition: HOME/ ROUTINE Instructions: Chest Pain (DC), Diet for Ulcers and Gastritis (GEN), Heart Healthy Diet (DC) Additional Instructions: 1). Continue your home medications of which you stated you had enough of at home. 2). DO NOT TAKE the Prednisone prescribed to you by Dr. Castro as your rash has resolved. 3). Follow up with your Pad Cutter Dr. Grant as scheduled for 07/26/17 for check up on your rash as well as biopsy results of the left lower leg biopsy results 4). Continue your Lyrica at 100 mg 1 tablet by mouth 3x/day as originally instructed by your Neurologist Dr. Olsen. 5). Schedule follow up with your Primary Care Physicians Drs. Hernandez/Gloria in 7 to 10 days. 6). You may take Benadryl 25 mg 1 tablet by mouth every 8 hours as needed for itchiness. Remember that this can make you drowsy and dry. Please stay well hydrated with water. 7). Please take care and be well. <Jae Hernandez - Last Filed: 07/25/17 21:03> Provider - Provider Date of Admission: 07/24/17 09:36 Attending physician: Jae Hernandez MD Hospital Course - Lab Results Lab Results: Most Recent Lab Values WBC 10.9 K/uL (4.8-10.8) H D 07/25/17 07:16 RBC 4.64 Mil/uL (3.80-5.20) 07/25/17 07:16 Hgb 12.9 g/dL (11.0-16.0) 07/25/17 07:16 Hct 38.2 % (34.0-47.0) 07/25/17 07:16 MCV 82.4 fL (81.0-99.0) 07/25/17 07:16 MCH 27.8 pg (27.0-31.0) 07/25/17 07:16 MCHC 33.8 g/dL (33.0-37.0) 07/25/17 07:16 RDW 14.4 % (11.5-14.5) 07/25/17 07:16 Plt Count 317 K/uL (130-400) 07/25/17 07:16 MPV 8.1 fL (7.2-11.7) 07/25/17 07:16 Neut % (Auto) 68.1 % (50.0-75.0) 07/25/17 07:16 Lymph % (Auto) 21.3 % (20.0-40.0) 07/25/17 07:16 [place] % (Auto) 8.8 % (0.0-10.0) 07/25/17 07:16 Eos % (Auto) 1.7 % (0.0-4.0) 07/25/17 07:16 Baso % (Auto) 0.1 % (0.0-2.0) 07/25/17 07:16 Neut # 7.5 K/uL (1.8-7.0) H 07/25/17 07:16 Lymph # 2.3 K/uL (1.0-4.3) 07/25/17 07:16 [place] # 1.0 K/uL (0.0-0.8) H 07/25/17 07:16 Eos # 0.2 K/uL (0.0-0.7) 07/25/17 07:16 Baso # 0.0 K/uL (0.0-0.2) 07/25/17 07:16 Sodium 133 mmol/L (132-148) 07/25/17 07:16 Potassium 3.9 mmol/L (3.6-5.2) 07/25/17 07:16 Chloride 98 mmol/L (98-107) 07/25/17 07:16 Carbon Dioxide 26 mmol/L (22-30) 07/25/17 07:16 Anion Gap 13 (10-20) 07/25/17 07:16 BUN 18 mg/dL (7-17) H 07/25/17 07:16 Creatinine 0.9 mg/dL (0.7-1.2) 07/25/17 07:16 Est GFR ( Amer) > 60 07/25/17 07:16 Est GFR (Non-Af Amer) > 60 07/25/17 07:16 Random Glucose 81 mg/dL (65-105) 07/25/17 07:16 Calcium 9.8 mg/dl (8.6-10.4) 07/25/17 07:16 Phosphorus 3.5 mg/dL (2.5-4.5) 07/25/17 07:16 Magnesium 2.1 mg/dL (1.6-2.3) 07/25/17 07:16 Total Bilirubin 1.4 mg/dL (0.2-1.3) H 07/24/17 08:16 AST 18 U/L (14-36) 07/24/17 08:16 ALT 43 U/L (9-52) 07/24/17 08:16 Alkaline Phosphatase 74 U/L (38-126) 07/24/17 08:16 Total Creatine Kinase 87 U/L (30-135) 07/24/17 08:16 CK-MB (Mass) 2.09 ng/mL (0.0-3.38) 07/24/17 08:16 Troponin I < 0.0120 ng/mL (0.00-0.120) 07/24/17 20:49 NT-Pro-B Natriuret Pep 241 pg/mL (0-900) 07/24/17 08:16 Total Protein 7.1 g/dL (6.3-8.3) 07/24/17 08:16 Albumin 4.0 g/dL (3.5-5.0) 07/24/17 08:16 Globulin 3.0 gm/dL (2.2-3.9) 07/24/17 08:16 Albumin/Globulin Ratio 1.3 (1.0-2.1) 07/24/17 08:16 Triglycerides 73 mg/dL (0-149) 07/25/17 07:16 Cholesterol 168 mg/dL (0-199) 07/25/17 07:16 LDL Cholesterol Direct 70 mg/dL (0-129) 07/25/17 07:16 HDL Cholesterol 85 mg/dL (30-70) H 07/25/17 07:16 Free T4 1.16 ng/dL (0.78-2.19) 07/25/17 07:16 TSH 3rd Generation 1.19 mIU/L (0.46-4.68) 07/25/17 07:16 Attending/Attestation - Attestation I have personally seen and examined this patient.: Yes I have fully participated in the care of the patient.: Yes I have reviewed all pertinent clinical information, including history, physical exam and plan: Yes Notes (Text): 07/25/17 21:03 Please see my progress note 07/25/17. Jae Hernandez D.O.
== END 2017-07-25 13:12 | disposition home or self-care (01) ==
LOC: C.ER 07:39 → C.9E 09:36 → C.6T 10:09
PROVIDERS: ADMIT Family Medicine; ATTEND Family Medicine
DX: R07.89 Other chest pain (principal); K21.9 Gastro-esophageal reflux disease without esophagitis; E87.6 Hypokalemia; J44.9 Chronic obstructive pulmonary disease, unspecified; E03.9 Hypothyroidism, unspecified; E78.00 Pure hypercholesterolemia, unspecified; G40.909 Epilepsy, unspecified, not intractable, without status epilepticus; I10 Essential (primary) hypertension; Z87.891 Personal history of nicotine dependence; N39.0 Urinary tract infection, site not specified; R21 Rash and other nonspecific skin eruption
CPT/HCPCS: 36415; 71010; 80048; 80053; 80061; 82550; 82553; 83735; 83880; 84100; 84439; 84443; 84484; 85025; 94640; 96361; 96372; 96374; 96375; 96376; 99283; G0378; J1200; J1650; J2920; J7040

== ENCOUNTER 2019-02-15 18:40 | Observation (INO) | payer MEDICARE, BC ==
[2019-02-15 18:41] VITALS: BMI 33.2
--- NOTE | 2019-02-15 19:12 | C.PDOC ---
History Of Present Illness 68 year old female presents to ED with complaint of lightheadedness and dizziness. Patient states that she went to the store today and started to become diaphoretic and weak. When she got back home she took her own blood pressure and found it to be 70/50. Patient currently complains of generalized weakness and dizziness. She denies chest pain and nausea. Time Seen by Provider: 02/15/19 19:11 Chief Complaint (Nursing): Dizziness/Lightheaded History Per: Patient History/Exam Limitations: no limitations Onset/Duration Of Symptoms: Hrs Current Symptoms Are (Timing): Still Present Activity At Onset Of Symptoms: Walking Fall Associated With With Symptoms: No Recent travel outside of the [place]: No Additional History Per: Patient - Symptoms Of CVA Associated Symptoms: denies: Impaired Speech, Seizure Activity, Decreased Ability To Walk, New Confusion Recent Aspirin Use: No Current Coumadin Use?: No Past Medical History Reviewed: Historical Data, Nursing Documentation, Vital Signs Vital Signs: Last Vital Signs Temp 97.6 F 02/15/19 18:45 Pulse 112 H 02/15/19 18:45 Resp 20 02/15/19 18:45 BP 117/71 02/15/19 18:45 Pulse Ox 96 02/15/19 18:45 Primary Care Provider: Shelly Hernandez Medical History PMH: Asthma, COPD, Diverticulitis (Diverticulosis), Gastritis, HTN, Hypercholesterolemia, Hypothyroidism, Seizures (LAST SEIZURE 2011) Denies: Atrial Fibrillation, Chronic Kidney Disease Surgical History: Appendectomy (5 YRS. OLD), Endoscopy - [facility] Procedures CLOSED ENDOSCOPIC BIOPSY OF LARGE INTESTINE (07/31/14) INSERTION OF INFUSION DEV INTO SUP VENA CAVA, PERC APPROACH (04/08/17) Family History: States: Unknown Family Hx - Social History Hx Tobacco Use: No Hx Alcohol Use: No Hx Substance Use: No - Immunization History Hx Tetanus Toxoid Vaccination: No Hx Influenza Vaccination: Yes Hx Pneumococcal Vaccination: Yes Review Of Systems Constitutional: Positive for: Sweats, Weakness. Negative for: Fever, Chills Eyes: Negative for: Vision Change Cardiovascular: Negative for: Chest Pain Respiratory: Negative for: Shortness of Breath Gastrointestinal: Negative for: Nausea, Vomiting Neurological: Positive for: Dizziness. Negative for: Weakness, Numbness, Headache Psych: Negative for: Anxiety Physical Exam - Physical Exam Appears: Non-toxic, No Acute Distress Skin: Warm, Dry Head: Normacephalic Eye(s): bilateral: Normal Inspection Oral Mucosa: Moist Teeth: Other (poor dentition) Neck: Trachea Midline, Supple Chest: Symmetrical Cardiovascular: Rhythm Regular Respiratory: No Rales, No Rhonchi, No Wheezing Gastrointestinal/Abdominal: Soft, No Tenderness, No Distention Back: No CVA Tenderness Extremity: No Tenderness Extremity: Bilateral: Atraumatic, Normal Color And Temperature Pulses: Left Dorsalis Pedis: Normal, Right Dorsalis Pedis: Normal Neurological/Psych: Oriented x3 Gait: Steady ED Course And Treatment - Laboratory Results Result Diagrams: 02/15/19 19:32 02/15/19 19:32 ECG: Interpreted By Me, Viewed By Me ECG Rhythm: Sinus Rhythm (93), Nonspecific Changes O2 Sat by Pulse Oximetry: 96 (in RA) Pulse Ox Interpretation: Normal - Radiology CXR: Interpreted by Me, Viewed By Me CXR Interpretation: No: Infiltrates, Fracture, Pnemothorax Progress Note: Head CT, EKG, and CXR ordered for patient. Labs ordered with CMP, troponin, lipase, PTT, CBC, and UA. Disposition Discussed With Dr.: Jordin Ruiz Comment[facility] took [facility] care at 9;34 PM Doctor Will See Patient In The: ED Counseled Patient/Family Regarding: Studies Performed, Diagnosis - Disposition Disposition: HOSPITALIZED Disposition Time: 19:11 Condition: FAIR Forms: [facility] (Malay) - POA Present On Arrival: None - Clinical Impression Clinical Impression: Dizziness, Chest pain, Hyponatremia - Scribe Statement The provider has reviewed the documentation as recorded by the Scribe (Gina Molina) All medical record entries made by the Scribe were at my direction and personally dictated by me. I have reviewed the chart and agree that the record accurately reflects my personal performance of the history, physical exam, medical decision making, and the department course for this patient. I have also personally directed, reviewed, and agree with the discharge instructions and disposition. Decision To Admit - Pt Status Changed To: Hospital Disposition Of: Observation - . Bed Request Type: Telemetry Admitting Physician: Jordin Ruiz Patient Diagnosis: Dizziness, Chest pain, Hyponatremia
[2019-02-15 19:30] LABS: BASO # 0.1 K/uL (0.0-0.2); BASO % 0.8 % (0.0-2.0); EOS # 0.1 K/uL (0.0-0.7); EOS % 1.1 % (0.0-4.0); HEMOGLOBIN 13.4 g/dL (11.0-16.0); LYMPH # 1.5 K/uL (1.0-4.3); LYMPH % 15.8 % (20.0-40.0); MEAN CELL VOLUME 84.4 fL (81.0-99.0); MEAN CORPUSCULAR HEMOGLOBIN 28.7 pg (27.0-31.0); MEAN PLATELET VOLUME 6.9 fL (7.2-11.7); MONO # 1.2 K/uL (0.0-0.8); MONO % 12.4 % (0.0-10.0); NEUT # 6.8 K/uL (1.8-7.0); NEUT % 69.9 % (50.0-75.0); NRBC % 0.1 % (0.0-2.0); RBC 4.68 Mil/uL (3.80-5.20); RED CELL DISTRIBUTION WIDTH 14.9 % (11.5-14.5); WHITE BLOOD COUNT 9.7 K/uL (4.8-10.8)
[2019-02-15 19:40] LABS: ALB/GLOB RATIO 1.7 (1.0-2.1); ALBUMIN 4.2 g/dL (3.5-5.0); CALCIUM 10.3 mg/dl (8.6-10.4); INR 1.1; PARTIAL THROMBOPLASTIN TIME 31.6 SECONDS (21-34); PROTHROMBIN TIME 11.8 SECONDS (9.7-12.2)
[2019-02-15] MEDS ORDERED: Sodium Chloride 0.9% 1,000 ML IV ONE (19:42)
[2019-02-15 19:53] LABS: B-TYPE NATRIURETIC PEPTIDE 87.3 pg/mL (0-900); TROPONIN I 0.021 ng/mL (0.00-0.120)
[2019-02-15] MEDS ORDERED: Sodium Chloride 0.9% 1,000 ML ONE (20:18)
--- NOTE | 2019-02-15 21:38 | CP.PCM.HP ---
History of Present Illness - History of Present Illness History of Present Illness: cc: sweating, dizziness, chest preasure, weakness, hypotension Patient is a 68 year old female with pmhx of COPD, HTN, Hypothyroidism, HLD, Meningioma, Seizure Disorder, GERD, Hemangioma, Chronic UTI and diverticulitis who presents to the ED today with complaints of diaphoresis, weakness, lightheadedness, chest pressure starting this afternoon. Patient reports she qwent out to run errands and began experiencing profuse sweating, followed by lightheadedness, weakness(left arm), myalgias. She felt overheated and returned to her home where she turned on the AC and drank fluids with improvement in symptoms. She reports taking her BP at home with a reading of 61/56, HR 111. After symptomatic improvement she resumed her errands and symptoms returned. She reports profuse sweating, flushing of face, lightheadedness with bright visual changes, mid sternal chest pressure, weakness and myalgias. She presents to ED for further evaluation. Denies hx of similar symptoms in past. Denies headache, SOB, nausea, paresthesias, syncope or seizure. PMD: Dr. Hernandez pmhx: COPD, HTN, Hypothyroidism, HLD, Meningioma, Seizure Disorder(isolated episode 2011), GERD, Hemangioma, Chronic UTI and diverticulitis pshx: appendectomy, partial hysterectomy meds: See MAR allergies: as noted sochx: former smoker, quit 31+ years, denies alcohol/drug use famhx: HTN, asthma Present on Admission - Present on Admission Any Indicators Present on Admission: No Review of Systems - Constitutional Constitutional: Excessive Sweating, Weakness. absent: Headache - EENT Eyes: Other (seeing bright vision). absent: Blurred Vision - Cardiovascular Cardiovascular: Chest Pain with Activity (pressure), Diaphoresis, Lightheadedness, Rapid Heart Rate. absent: Dyspnea, Pain Radiating to Arm/Neck/Jaw, Palpitations, Syncope - Respiratory Respiratory: absent: Cough, Dyspnea - Gastrointestinal Gastrointestinal: absent: Abdominal Pain, Constipation, Diarrhea, Nausea, Vomiting - Genitourinary Genitourinary: absent: Difficulty Urinating, Dysuria - Reproductive: Female Reproductive:Female: Other (recurrent fungal infection) - Menstruation Menstruation: S/P Hysterectomy (partial) - Musculoskeletal Musculoskeletal: Myalgias. absent: Numbness - Neurological Neurological: Dizziness. absent: Numbness, Headaches, Paresthesias, Syncope, Weakness - Endocrine Endocrine: Excessive Sweating, Flushing Past Patient History - Infectious Disease Hx of Infectious Diseases: None - Past Medical History & Family History Past Medical History?: Yes - Past Social History Smoking Status: Former Smoker - CARDIAC Hx Atrial Fibrillation: No Hx Hypercholesterolemia: Yes Hx Hypertension: Yes - PULMONARY Hx Asthma: Yes Hx Chronic Obstructive Pulmonary Disease (COPD): Yes - NEUROLOGICAL Hx Seizures: Yes (LAST SEIZURE 2011) - HEENT Hx HEENT Problems: Yes Hx Cataracts: Yes Hx Glaucoma: Yes Other/Comment: implanted LENS to both eyes - RENAL Hx Chronic Kidney Disease: No - ENDOCRINE/METABOLIC Hx Hypothyroidism: Yes - INTEGUMENTARY Hx Dermatological Problems: No - MUSCULOSKELETAL/RHEUMATOLOGICAL Hx Musculoskeletal Disorders: Yes Hx Herniated Disk: Yes (THORACIC AND LUMBAR) - GASTROINTESTINAL Hx Diverticulitis: Yes (Diverticulosis) Hx Gastritis: Yes - GENITOURINARY/GYNECOLOGICAL Hx Genitourinary Disorders: No - PSYCHIATRIC Hx Substance Use: No - SURGICAL HISTORY Hx Appendectomy: Yes (3 YRS. OLD) - ANESTHESIA Hx Anesthesia: Yes Hx Anesthesia Reactions: No Hx Malignant Hyperthermia: No Meds Allergies/Adverse Reactions: Allergies Allergy/AdvReac Type Severity Reaction Status Date / Time amoxicillin [From Augmentin] Allergy Verified 07/17/17 10:09 ciprofloxacin [From Cipro] Allergy Verified 07/17/17 10:09 clavulanic acid Allergy Verified 07/17/17 10:09 [From Augmentin] iodine Allergy Verified 07/17/17 10:09 levofloxacin [From Levaquin] Allergy Verified 07/17/17 10:09 metronidazole [From Flagyl] Allergy Verified 07/17/17 10:09 Sulfa (Sulfonamide Allergy Verified 07/17/17 10:09 Antibiotics) sulfamethoxazole Allergy Verified 07/17/17 10:09 [From Bactrim] theophylline Allergy Verified 07/17/17 10:09 trimethoprim [From Bactrim] Allergy Verified 07/17/17 10:09 Physical Exam - Constitutional Appears: Non-toxic, No Acute Distress - Head Exam Head Exam: ATRAUMATIC, NORMAL INSPECTION, NORMOCEPHALIC - Eye Exam Eye Exam: EOMI, Normal appearance Pupil Exam: NORMAL ACCOMODATION, PERRL - ENT Exam ENT Exam: Mucous Membranes Moist, Normal Exam - Neck Exam Neck exam: Positive for: Normal Inspection - Respiratory Exam Respiratory Exam: Decreased Breath Sounds, Clear to Auscultation Bilateral, NORMAL BREATHING PATTERN - Cardiovascular Exam Cardiovascular Exam: REGULAR RHYTHM, +S1, +S2. absent: Tachycardia - GI/Abdominal Exam GI & Abdominal Exam: Normal Bowel Sounds, Soft. absent: Distended, Tenderness - Extremities Exam Extremities exam: Positive for: normal inspection. Negative for: calf tenderness, pedal edema - Back Exam Back exam: NORMAL INSPECTION - Neurological Exam Neurological exam: Alert, CN II-XII Intact, Oriented x3 - Psychiatric Exam Psychiatric exam: Normal Affect, Normal Mood - Skin Skin Exam: Dry, Intact, Normal Color, Warm Results - Vital Signs Recent Vital Signs: Last Vital Signs Temp 97.6 F 02/15/19 18:45 Pulse 112 H 02/15/19 18:45 Resp 20 02/15/19 18:45 BP 117/71 02/15/19 18:45 Pulse Ox 96 02/15/19 21:36 - Labs Result Diagrams: 02/15/19 19:32 02/15/19 19:32 Labs: Laboratory Results - last 24 hr 02/15/19 02/15/19 02/15/19 19:15 19:32 19:32 WBC 9.7 RBC 4.68 Hgb 13.4 Hct 39.5 MCV 84.4 D MCH 28.7 MCHC 34.0 RDW 14.9 H Plt Count 386 MPV 6.9 L Neut % (Auto) 69.9 Lymph % (Auto) 15.8 L [place] % (Auto) 12.4 H Eos % (Auto) 1.1 Baso % (Auto) 0.8 Neut # (Auto) 6.8 Lymph # (Auto) 1.5 [place] # (Auto) 1.2 H Eos # (Auto) 0.1 Baso # (Auto) 0.1 PT 11.8 INR 1.1 APTT 31.6 Sodium Potassium Chloride Carbon Dioxide Anion Gap BUN Creatinine Est GFR ( Amer) Est GFR (Non-Af Amer) POC Glucose (mg/dL) 110 Random Glucose Calcium Total Bilirubin AST ALT Alkaline Phosphatase Troponin I NT-Pro-B Natriuret Pep Total Protein Albumin Globulin Albumin/Globulin Ratio Lipase TSH 3rd Generation 02/15/19 19:32 WBC RBC Hgb Hct MCV MCH MCHC RDW Plt Count MPV Neut % (Auto) Lymph % (Auto) [place] % (Auto) Eos % (Auto) Baso % (Auto) Neut # (Auto) Lymph # (Auto) [place] # (Auto) Eos # (Auto) Baso # (Auto) PT INR APTT Sodium 127 L Potassium 4.5 Chloride 93 L Carbon Dioxide 22 Anion Gap 17 BUN 25 H Creatinine 1.1 Est GFR ( Amer) 59 Est GFR (Non-Af Amer) 49 POC Glucose (mg/dL) Random Glucose 105 D Calcium 10.3 Total Bilirubin 0.9 AST 27 ALT 25 Alkaline Phosphatase 95 Troponin I 0.0210 NT-Pro-B Natriuret Pep 87.3 Total Protein 6.7 Albumin 4.2 Globulin 2.5 Albumin/Globulin Ratio 1.7 Lipase 138 TSH 3rd Generation 1.11 Assessment & Plan (1) Chest pressure Assessment and Plan: -exertional chest pressure -trop 0.0210 in ED -EKG: NSR @93 -trend troponins -echo ordered -continue home ASA 81mg -cardiology consult, Dr. Small Status: Acute (2) Weakness Assessment and Plan: -patient reporting weakness and myalgias, exertional -CT head negative for acute intracranial abnormality -CPK -LDH -neuro checks -neuro consult, Dr. Tellez Status: Acute (3) Hyponatremia Assessment and Plan: -Na+ 127 on admission -past hx of hyponatremia of unknown origin, per records -patient was sweating profusely, followed by increased PO intake; likely dilutional -repleted w/ 1L in ED -continue to monitor Status: Acute (4) Hypotension Assessment and Plan: -patient reporting hypotension at home of 61/56 -given 1L in ED -BP currently stable and WNL -f/u orthostatics -fall precautions Status: Acute (5) COPD (chronic obstructive pulmonary disease) Assessment and Plan: -f/u CXR -hold home meds 2/2 availability -discussed with pharmacy and will replace advair with Brovana and Pulmicort -continue home singulair -duonebs q4 prn -O2 via NC prn Status: Chronic (6) Seizure disorder Assessment and Plan: -isolated seizure 2011, likely 2/2 meningioma -continue home meds, keppra 1500mg q12 -seizure precautions -neuro checks -neuro consult, Dr. Tellez Status: Chronic (7) Hypothyroidism Assessment and Plan: -TSH 1.1, WNL -continue home synthroid 112 mcg qd Status: Chronic (8) HLD (hyperlipidemia) Assessment and Plan: -f/u lipid panel -hold home pravastatin 2/2 availability -replace with crestor 5mg po hs per pharmacy Status: Chronic (9) Hypertension Assessment and Plan: -hold home medication 2/2 availability -replace with HCTZ 12.5, and Cozaar 100mg po qd -holding parameters 2/2 reports of hypotension Status: Chronic (10) Neuropathy Assessment and Plan: -unknown cause of neuropathy, possibly 2/2 meningioma, no known hx of DM -continue home medication, gabapentin Status: Chronic (11) Prophylactic measure Assessment and Plan: GI: replace home nexium w/ protonix VTE: heparin 5000 q8, SCDs Status: Acute - Assessment and Plan (Free Text) Assessment: Discussed with Dr. Joseph Pritchard, PGY-1
[2019-02-15] MEDS ORDERED: Albuterol-Ipratrop 3 mg / 0.5 (3 ml) UD INH PRN (23:28)
[2019-02-15 23:38] LABS: RENAL EPITHELIAL 2 /hpf (0-3); SQUAMOUS EPITHIAL 10 /hpf (0-5); URINE BACTERIA FEW (<OCC); URINE BILIRUBIN NEGATIVE (NEGATIVE); URINE BLOOD 1+ (NEGATIVE); URINE CLARITY Hazy (Clear); URINE COLOR Yellow (YELLOW); URINE GLUCOSE (UA) NORMAL (Normal); URINE LEUKOCYTE ESTERASE 3+ Leu/uL (Negative); URINE PROTEIN NEGATIVE (NEGATIVE); URINE UROBILINOGEN NORMAL mg/dL (0.2-1.0)
[2019-02-16 02:01] LABS: TROPONIN I 0.015 ng/mL (0.00-0.120)
[2019-02-16] MEDS: Levothyroxine 112 MCG TAB PO SCH (06:05)
--- NOTE | 2019-02-16 06:49 | CT ---
Date of service: 02/15/2019 PROCEDURE: CT HEAD WITHOUT CONTRAST. HISTORY: dizziness COMPARISON: None available. TECHNIQUE: Axial computed tomography images were obtained through the head/brain without intravenous contrast. Radiation dose: Total exam DLP = 1099.72 mGy-cm. This CT exam was performed using one or more of the following dose reduction techniques: Automated exposure control, adjustment of the mA and/or kV according to patient size, and/or use of iterative reconstruction technique. FINDINGS: HEMORRHAGE: No intracranial hemorrhage. BRAIN: No mass effect or edema. Scattered focal lucencies in the subcortical and periventricular white matter suggestive for chronic microvascular ischemic change. Diffuse generalized parenchymal atrophy most prominent in the anterior bilateral temporal region. VENTRICLES: Unremarkable. No hydrocephalus. CALVARIUM: Unremarkable. PARANASAL SINUSES: Unremarkable as visualized. No significant inflammatory changes. MASTOID AIR CELLS: Unremarkable as visualized. No inflammatory changes. OTHER FINDINGS: None. IMPRESSION: No acute intracranial abnormality. Chronic microvascular ischemic changes. If symptoms persists, consider correlation with MRI. A preliminary report was generated at 8:22 p.m. on 02/15/[address] Roger Nash from [email or web address].
[2019-02-16 07:24] LABS: BASO # 0.1 K/uL (0.0-0.2); BASO % 0.9 % (0.0-2.0); EOS # 0.2 K/uL (0.0-0.7); EOS % 3.2 % (0.0-4.0); HEMOGLOBIN 12.1 g/dL (11.0-16.0); LYMPH % 27.5 % (20.0-40.0); MEAN CELL VOLUME 83.6 fL (81.0-99.0); MEAN CORPUSCULAR HGB CONC 34.6 g/dL (33.0-37.0); MEAN PLATELET VOLUME 7.1 fL (7.2-11.7); MONO # 0.9 K/uL (0.0-0.8); MONO % 11.8 % (0.0-10.0); NEUT # 4.2 K/uL (1.8-7.0); NEUT % 56.6 % (50.0-75.0); NRBC % 0.1 % (0.0-2.0); RBC 4.17 Mil/uL (3.80-5.20); RED CELL DISTRIBUTION WIDTH 14.7 % (11.5-14.5); WHITE BLOOD COUNT 7.4 K/uL (4.8-10.8)
[2019-02-16 07:35] LABS: ALB/GLOB RATIO 1.5 (1.0-2.1); ALBUMIN 3.4 g/dL (3.5-5.0); ALT/SGPT 27 U/L (9-52); AST/SGOT 27 U/L (14-36); BLOOD UREA NITROGEN 19 mg/dL (7-17); CALCIUM 9.8 mg/dl (8.6-10.4); GFR NON-AFRICAN AMERICAN > 60; HDL CHOLESTEROL 73 mg/dL (30-70)
[2019-02-16 07:45] LABS: LDL CHOLESTEROL 79 mg/dL (0-129)
[2019-02-16] MEDS: Pantoprazole 40 mg EC Tab PO SCH (09:13)
--- NOTE | 2019-02-16 09:49 | CP.PCM.PN ---
<Brenden Rosales - Last Filed: 02/16/19 16:04> Subjective - Date & Time of Evaluation Date of Evaluation: 02/16/19 Time of Evaluation: 09:15 - Subjective Subjective: PGY1 Medicine progress note for Dr. Getachew Hernandez Pt seen and examined at bedside. Pt is resting comfortably. No complaints. Denies fever, chills, chest pain, sob, abdominal pain, n/v/d, dizziness, headache, numbness or tingling, urinary symptoms, hematuria. Objective - Vital Signs/Intake and Output Vital Signs (last 24 hours): Temp Pulse Resp BP Pulse Ox 97.8 F 65 20 118/70 98 02/16/19 07:00 02/16/19 07:00 02/16/19 07:00 02/16/19 07:00 02/16/19 07:00 - Medications Medications: Current Medications Albuterol/Ipratropium (Duoneb 3 Mg/0.5 Mg (3 Ml) Ud) 3 ml INH RQ4 PRN PRN Reason: Shortness of Breath Arformoterol Tartrate (Brovana) 15 mcg INH RQ12@1000,2200 [facility] Aspirin (Aspirin Chewable) 81 mg PO DAILY [facility] Last Admin: 02/16/19 09:13 Dose: 81 mg Budesonide (Pulmicort Respules) 0.5 mg INH RQ12 [facility] Gabapentin (Neurontin) 400 mg PO DAILY [facility] Heparin Sodium (Porcine) (Heparin) 5,000 units SC Q8 [facility] Last Admin: 02/16/19 06:05 Dose: 5,000 units Home Med (Desonide [Desonide]) 1 appl TP BID [facility] Levetiracetam (Keppra) 1,500 mg PO Q12H [facility] Last Admin: 02/16/19 09:16 Dose: 1,500 mg Levothyroxine Sodium (Synthroid) 112 mcg PO DAILY@0630 [facility] Last Admin: 02/16/19 06:05 Dose: 112 mcg Losartan Potassium (Cozaar) 100 mg PO DAILY [facility] Last Admin: 02/16/19 09:12 Dose: 100 mg Montelukast Sodium (Singulair) 10 mg PO QPM [facility] Pantoprazole Sodium (Protonix Ec Tab) 40 mg PO DAILY [facility] Last Admin: 02/16/19 09:13 Dose: 40 mg Rosuvastatin Calcium (Crestor) 5 mg PO HS [facility] Zolpidem Tartrate (Ambien) 5 mg PO HS [facility] Last Admin: 02/16/19 00:30 Dose: 5 mg - Labs Labs: 02/16/19 07:09 02/16/19 07:09 PT 11.8 SECONDS (9.7-12.2) 02/15/19 19:32 INR 1.1 02/15/19 19:32 APTT 31.6 SECONDS (21-34) 02/15/19 19:32 - Additional Findings Additional findings: - Constitutional Appears: Non-toxic, No Acute Distress - Head Exam Head Exam: ATRAUMATIC, NORMAL INSPECTION, NORMOCEPHALIC - Eye Exam Eye Exam: EOMI, Normal appearance - ENT Exam ENT Exam: Mucous Membranes Moist, Normal Exam - Neck Exam Neck exam: Positive for: Normal Inspection - Respiratory Exam Respiratory Exam: Clear to Auscultation Bilateral, NORMAL BREATHING PATTERN. Absent: rales, rhonchi, wheezes - Cardiovascular Exam Cardiovascular Exam: RRR, +S1, +S2 (much more prominent). absent: Tachycardia, Murmur - GI/Abdominal Exam GI & Abdominal Exam: Normal Bowel Sounds, Soft. absent: Distended, Tenderness - Extremities Exam Extremities exam: Positive for: normal inspection. Negative for: calf tenderness, pedal edema - Back Exam Back exam: NORMAL INSPECTION, (-) CVA tenderness bilaterally. (+) lower vertebral tenderness ( no step off) - Neurological Exam Neurological exam: Alert,Oriented x3 - Psychiatric Exam Psychiatric exam: Normal Affect, Normal Mood - Skin Skin Exam: Dry, Intact, Normal Color, Warm Assessment and Plan - Assessment and Plan (Free Text) Assessment: Assessment & Plan Chest pressure Assessment and Plan: EKG: NSR @93 Troponin x3 is negative Continue home ASA 81mg Cardiology consult, Dr. Small No evidence of ACS F/u echocardiogram Status: Acute Weakness, diaphoresis, myalgias, visual changes Assessment and Plan: Likely all secondary to hyponatremia CT head negative for acute intracranial abnormality TSH, T4 normal; see below CPK is 141, LDH is normal at 523 Neuro checks Neuro consult, Dr. Tellez Fall precautions UDS negative Status: Acute Hyponatremia Assessment and Plan: Pt euvolemic on clinical exam, endorses drinking 5+ 16 ounce water bottles daily Pt's home HCTZ likely contributed, will hold Possible component of SIADH from Keppra use as well F/u stat keppra level Na+ 127 on admission, currently 130 Continue to monitor Status: Acute Hypotension Assessment and Plan: BP currently stable and WNL Orthostatic BP: Lay 138/79 Sit 131/82 Stand 126/86 Fall precautions Status: Resolved Hx candidal infection to bilateral inguinal/groin area Assessment and Plan: Keep area dry Nystatin powder BID Discontinued home topical Desonide Status: Chronic Hx COPD (chronic obstructive pulmonary disease) Assessment and Plan: CXR shows no active disease Rapid flu negative Brovana Q12 and Pulmicort Q12, to replace home Advair diskus as per inpatient pharmacy recs Continue home Singulair 10 mg PO QHS Duonebs q4 prn O2 via NC prn Status: Chronic Hx Hypertension Assessment and Plan: Hold home HCTZ 12.5 po qd due to hyponatremia Continue Cozaar 100mg po qd Holding parameters 2/2 reports of hypotension Status: Chronic Hx Hypothyroidism Assessment and Plan: TSH 1.1, WNL Continue home synthroid 112 mcg qd Status: Chronic Hx HLD (hyperlipidemia) Assessment and Plan: Lipid panel shows TG/CHL/LDL/HDL is 105/167/79/73 Continue Crestor 5mg po hs per pharmacy (equivalent of home Pravastatin dose) Status: Chronic Hx Seizure disorder Assessment and Plan: Private Neurologist is Dr. Olsen, who requests on-call neurologist to follow up with pt Isolated seizure 2011, likely 2/2 meningioma as per pt Continue home meds, Keppra 1500mg PO q12, Gabapentin 400 mg PO QD Seizure precautions Neuro checks Neuro consult, Dr. 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 Case discussed with Dr. Getachew Rosales PGY1 <Jae Hernandez - Last Filed: 02/17/19 17:01> Objective - Vital Signs/Intake and Output Vital Signs (last 24 hours): Temp Pulse Resp BP Pulse Ox 97.8 F 72 20 129/81 96 02/17/19 07:00 02/17/19 07:50 02/17/19 07:00 02/17/19 07:00 02/17/19 07:00 Intake and Output: 02/17/19 02/17/19 06:59 18:59 Intake Total 480 Balance 480 - Labs Labs: 02/17/19 07:01 02/17/19 07:01 PT 11.8 SECONDS (9.7-12.2) 02/15/19 19:32 INR 1.1 02/15/19 19:32 APTT 31.6 SECONDS (21-34) 02/15/19 19:32 Attending/Attestation - Attestation I have personally seen and examined this patient.: Yes I have fully participated in the care of the patient.: Yes I have reviewed all pertinent clinical information, including history, physical exam and plan: Yes Notes (Text): 02/17/19 17:00 This is a late entry. Care of this patient was gone over with resident Dr. Rosales. Jae Hernanedz D.O.
[2019-02-16] MEDS ORDERED: Arformoterol 15 mcg/2 ml Inh Sol INH SCH (10:00)
--- NOTE | 2019-02-16 10:07 | CP.PCM.CON ---
History of Present Illness - History of Present Illness History of Present Illness: Patient is a 68 year old female with pmhx of COPD, HTN, Hypothyroidism, HLD, Meningioma, Seizure Disorder, GERD, Hemangioma, Chronic UTI and diverticulitis who presents to the ED today with complaints of diaphoresis, weakness, lighthea dedness. The pat took her bp at home and it was 61/56, later rising in the day 114 systolic after oral fluids. BP again was low, she came to the ER. Pt's last seizure was 2011. SHe was admitted here in 2011 for non anginal chest pain. SHe has had hyponatremia in the past. Pt reported chest discomfor to the ER MD, but not to me. TNI is normal, ecg normal. BP now normal. NA was 127, now 130. Review of Systems - Review of Systems All systems: reviewed and no additional remarkable complaints except (as above.) Past Patient History - Infectious Disease Hx of Infectious Diseases: None - Past Medical History & Family History Past Medical History?: Yes - Past Social History Smoking Status: Former Smoker - CARDIAC Hx Atrial Fibrillation: No Hx Hypercholesterolemia: Yes Hx Hypertension: Yes - PULMONARY Hx Asthma: Yes Hx Chronic Obstructive Pulmonary Disease (COPD): Yes - NEUROLOGICAL Hx Seizures: Yes (LAST SEIZURE 2011) - HEENT Hx HEENT Problems: Yes Hx Cataracts: Yes Hx Glaucoma: Yes Other/Comment: implanted LENS to both eyes - RENAL Hx Chronic Kidney Disease: No - ENDOCRINE/METABOLIC Hx Hypothyroidism: Yes - INTEGUMENTARY Hx Dermatological Problems: No - MUSCULOSKELETAL/RHEUMATOLOGICAL Hx Musculoskeletal Disorders: Yes Hx Herniated Disk: Yes (THORACIC AND LUMBAR) - GASTROINTESTINAL Hx Diverticulitis: Yes (Diverticulosis) Hx Gastritis: Yes - GENITOURINARY/GYNECOLOGICAL Hx Genitourinary Disorders: No - PSYCHIATRIC Hx Substance Use: No - SURGICAL HISTORY Hx Appendectomy: Yes (5 YRS. OLD) - ANESTHESIA Hx Anesthesia: Yes Hx Anesthesia Reactions: No Hx Malignant Hyperthermia: No Meds Allergies/Adverse Reactions: Allergies Allergy/AdvReac Type Severity Reaction Status Date / Time amoxicillin [From Augmentin] Allergy Verified 07/17/17 10:09 ciprofloxacin [From Cipro] Allergy Verified 07/17/17 10:09 clavulanic acid Allergy Verified 07/17/17 10:09 [From Augmentin] iodine Allergy Verified 07/17/17 10:09 levofloxacin [From Levaquin] Allergy Verified 07/17/17 10:09 metronidazole [From Flagyl] Allergy Verified 07/17/17 10:09 Sulfa (Sulfonamide Allergy Verified 07/17/17 10:09 Antibiotics) sulfamethoxazole Allergy Verified 07/17/17 10:09 [From Bactrim] theophylline Allergy Verified 07/17/17 10:09 trimethoprim [From Bactrim] Allergy Verified 07/17/17 10:09 - Medications Medications: Current Medications Albuterol/Ipratropium (Duoneb 3 Mg/0.5 Mg (3 Ml) Ud) 3 ml INH RQ4 PRN PRN Reason: Shortness of Breath Arformoterol Tartrate (Brovana) 15 mcg INH RQ12@1000,2200 [facility] Aspirin (Aspirin Chewable) 81 mg PO DAILY [facility] Last Admin: 02/16/19 09:13 Dose: 81 mg Budesonide (Pulmicort Respules) 0.5 mg INH RQ12 [facility] Gabapentin (Neurontin) 400 mg PO DAILY [facility] Heparin Sodium (Porcine) (Heparin) 5,000 units SC Q8 [facility] Last Admin: 02/16/19 06:05 Dose: 5,000 units Home Med (Desonide [Desonide]) 1 appl TP BID [facility] Levetiracetam (Keppra) 1,500 mg PO Q12H [facility] Last Admin: 02/16/19 09:16 Dose: 1,500 mg Levothyroxine Sodium (Synthroid) 112 mcg PO DAILY@0630 [facility] Last Admin: 02/16/19 06:05 Dose: 112 mcg Losartan Potassium (Cozaar) 100 mg PO DAILY [facility] Last Admin: 02/16/19 09:12 Dose: 100 mg Montelukast Sodium (Singulair) 10 mg PO QPM [facility] Nystatin (Nystop Topical Powder) 1 applic TOP BID [facility] Pantoprazole Sodium (Protonix Ec Tab) 40 mg PO DAILY [facility] Last Admin: 02/16/19 09:13 Dose: 40 mg Rosuvastatin Calcium (Crestor) 5 mg PO HS [facility] Zolpidem Tartrate (Ambien) 5 mg PO HS [facility] Last Admin: 02/16/19 00:30 Dose: 5 mg Physical Exam - Constitutional Appears: Well - Head Exam Head Exam: ATRAUMATIC, NORMAL INSPECTION - Eye Exam Eye Exam: EOMI Pupil Exam: NORMAL ACCOMODATION - ENT Exam ENT Exam: Mucous Membranes Moist - Neck Exam Neck exam: Positive for: Normal Inspection - Respiratory Exam Respiratory Exam: Clear to Auscultation Bilateral - Cardiovascular Exam Cardiovascular Exam: REGULAR RHYTHM - Rectal Exam Rectal Exam: NORMAL INSPECTION - Exam Exam: NORMAL INSPECTION External exam: NORMAL EXTERNAL EXAM - Extremities Exam Extremities exam: Positive for: normal inspection - Neurological Exam Neurological exam: Alert, CN II-XII Intact - Psychiatric Exam Psychiatric exam: Normal Affect - Skin Skin Exam: Normal Color Results - Vital Signs Recent Vital Signs: Last Vital Signs Temp 97.8 F 02/16/19 07:00 Pulse 65 02/16/19 07:00 Resp 20 02/16/19 07:00 BP 118/70 02/16/19 07:00 Pulse Ox 98 02/16/19 07:00 - Labs Result Diagrams: 02/16/19 07:09 02/16/19 07:09 Labs: Laboratory Results - last 24 hr 02/15/19 02/15/19 02/15/19 19:15 19:32 19:32 WBC 9.7 RBC 4.68 Hgb 13.4 Hct 39.5 MCV 84.4 D MCH 28.7 MCHC 34.0 RDW 14.9 H Plt Count 386 MPV 6.9 L Neut % (Auto) 69.9 Lymph % (Auto) 15.8 L [place] % (Auto) 12.4 H Eos % (Auto) 1.1 Baso % (Auto) 0.8 Neut # (Auto) 6.8 Lymph # (Auto) 1.5 [place] # (Auto) 1.2 H Eos # (Auto) 0.1 Baso # (Auto) 0.1 PT 11.8 INR 1.1 APTT 31.6 Sodium Potassium Chloride Carbon Dioxide Anion Gap BUN Creatinine Est GFR ( Amer) Est GFR (Non-Af Amer) POC Glucose (mg/dL) 110 Random Glucose Calcium Total Bilirubin AST ALT Alkaline Phosphatase Lactate Dehydrogenase Total Creatine Kinase Troponin I NT-Pro-B Natriuret Pep Total Protein Albumin Globulin Albumin/Globulin Ratio Triglycerides Cholesterol LDL Cholesterol Direct HDL Cholesterol Lipase Thyroxine (T4) TSH 3rd Generation Urine Color Urine Clarity Urine pH Ur Specific [place] Urine Protein Urine Glucose (UA) Urine Ketones Urine Blood Urine Nitrate Urine Bilirubin Urine Urobilinogen Ur Leukocyte Esterase Urine WBC (Auto) Urine RBC (Auto) Ur Squamous Epith Cells Ur Transition Epith Cell Ur Renal Epithelial Cell Urine Bacteria 02/15/19 02/15/19 02/15/19 19:32 23:15 23:15 WBC RBC Hgb Hct MCV MCH MCHC RDW Plt Count MPV Neut % (Auto) Lymph % (Auto) [place] % (Auto) Eos % (Auto) Baso % (Auto) Neut # (Auto) Lymph # (Auto) [place] # (Auto) Eos # (Auto) Baso # (Auto) PT INR APTT Sodium 127 L Potassium 4.5 Chloride 93 L Carbon Dioxide 22 Anion Gap 17 BUN 25 H Creatinine 1.1 Est GFR ( Amer) 59 Est GFR (Non-Af Amer) 49 POC Glucose (mg/dL) Random Glucose 105 D Calcium 10.3 Total Bilirubin 0.9 AST 27 ALT 25 Alkaline Phosphatase 95 Lactate Dehydrogenase 523 Total Creatine Kinase 141 H Troponin I 0.0210 NT-Pro-B Natriuret Pep 87.3 Total Protein 6.7 Albumin 4.2 Globulin 2.5 Albumin/Globulin Ratio 1.7 Triglycerides Cholesterol LDL Cholesterol Direct HDL Cholesterol Lipase 138 Thyroxine (T4) TSH 3rd Generation 1.11 Urine Color Yellow Urine Clarity Hazy Urine pH 5.0 Ur Specific [place] 1.010 Urine Protein Negative Urine Glucose (UA) Normal Urine Ketones Negative Urine Blood 1+ H Urine Nitrate Negative Urine Bilirubin Negative Urine Urobilinogen Normal Ur Leukocyte Esterase 3+ H Urine WBC (Auto) 118 H Urine RBC (Auto) 4 H Ur Squamous Epith Cells 10 H Ur Transition Epith Cell 1 Ur Renal Epithelial Cell 2 Urine Bacteria Few H 02/16/19 02/16/19 02/16/19 01:33 07:09 07:09 WBC 7.4 RBC 4.17 Hgb 12.1 Hct 34.8 MCV 83.6 MCH 29.0 MCHC 34.6 RDW 14.7 H Plt Count 295 MPV 7.1 L Neut % (Auto) 56.6 Lymph % (Auto) 27.5 [place] % (Auto) 11.8 H Eos % (Auto) 3.2 Baso % (Auto) 0.9 Neut # (Auto) 4.2 Lymph # (Auto) 2.0 [place] # (Auto) 0.9 H Eos # (Auto) 0.2 Baso # (Auto) 0.1 PT INR APTT Sodium 130 L Potassium 3.8 Chloride 98 Carbon Dioxide 24 Anion Gap 12 BUN 19 H Creatinine 0.8 Est GFR ( Amer) > 60 Est GFR (Non-Af Amer) > 60 POC Glucose (mg/dL) Random Glucose 101 Calcium 9.8 Total Bilirubin 0.9 AST 27 ALT 27 Alkaline Phosphatase 80 Lactate Dehydrogenase Total Creatine Kinase Troponin I 0.0150 NT-Pro-B Natriuret Pep Total Protein 5.7 L Albumin 3.4 L Globulin 2.3 Albumin/Globulin Ratio 1.5 Triglycerides 105 D Cholesterol 167 LDL Cholesterol Direct 79 HDL Cholesterol 73 H Lipase Thyroxine (T4) 10.9 TSH 3rd Generation Urine Color Urine Clarity Urine pH Ur Specific [place] Urine Protein Urine Glucose (UA) Urine Ketones Urine Blood Urine Nitrate Urine Bilirubin Urine Urobilinogen Ur Leukocyte Esterase Urine WBC (Auto) Urine RBC (Auto) Ur Squamous Epith Cells Ur Transition Epith Cell Ur Renal Epithelial Cell Urine Bacteria 02/16/19 07:09 WBC RBC Hgb Hct MCV MCH MCHC RDW Plt Count MPV Neut % (Auto) Lymph % (Auto) [place] % (Auto) Eos % (Auto) Baso % (Auto) Neut # (Auto) Lymph # (Auto) [place] # (Auto) Eos # (Auto) Baso # (Auto) PT INR APTT Sodium Potassium Chloride Carbon Dioxide Anion Gap BUN Creatinine Est GFR ( Amer) Est GFR (Non-Af Amer) POC Glucose (mg/dL) Random Glucose Calcium Total Bilirubin AST ALT Alkaline Phosphatase Lactate Dehydrogenase Total Creatine Kinase Troponin I < 0.0120 NT-Pro-B Natriuret Pep Total Protein Albumin Globulin Albumin/Globulin Ratio Triglycerides Cholesterol LDL Cholesterol Direct HDL Cholesterol Lipase Thyroxine (T4) TSH 3rd Generation Urine Color Urine Clarity Urine pH Ur Specific [place] Urine Protein Urine Glucose (UA) Urine Ketones Urine Blood Urine Nitrate Urine Bilirubin Urine Urobilinogen Ur Leukocyte Esterase Urine WBC (Auto) Urine RBC (Auto) Ur Squamous Epith Cells Ur Transition Epith Cell Ur Renal Epithelial Cell Urine Bacteria - EKG Data EKG Interpreted by: Myself EKG shows normal: Sinus rhythm (normal) Assessment & Plan - Assessment and Plan (Free Text) Assessment: 1. Normal TNI, normal ECG, no evidence of acs. 2. Pt on diuretic arb, bot can contribute to hyponatremia. Would advise stopping both, observe bp, and if BP is high, use alternative agents that do not cause dehydration or NA issues, such as norvasc and b elena.
--- NOTE | 2019-02-16 10:32 | RAD ---
Date of service: 02/15/2019 PROCEDURE: CHEST RADIOGRAPH, 1 VIEW HISTORY: chest pain COMPARISON: 07/24/2017 FINDINGS: LUNGS: Clear. PLEURA: No pneumothorax or pleural fluid seen. CARDIOVASCULAR: No aortic atherosclerotic calcification present. Normal. OSSEOUS STRUCTURES: No significant abnormalities. VISUALIZED UPPER ABDOMEN: Normal. OTHER FINDINGS: None. IMPRESSION: No active disease.
[2019-02-16 12:18] LABS: BARBITURATES, UR NEGATIVE (NEGATIVE); BENZODIAZEPINES, UR NEGATIVE (NEGATIVE); OPIATES, UR NEGATIVE (NEGATIVE); PHENCYCLIDINE, UR NEGATIVE (NEGATIVE)
--- NOTE | 2019-02-16 13:36 | CP.PCM.CON ---
History of Present Illness - History of Present Illness History of Present Illness: Neurology Consultation Note: Consult requested by Dr. Ruiz Mrs. Dorado is a 68-year-old woman with a past medical history of COPD, HTN, Hypothyroidism, HLD, Meningioma, Seizure Disorder, GERD, Hemangioma, Chronic UTI and diverticulitis who presents to the ED today with complaints of diaphoresis, weakness, lightheadedness, chest heaviness and generalized weakness. She went home and measured her BP and states that her systolic was in the low 60's. She presented to the ED for evaluation. Today, she is back to normal and does not have any complaints. The last time she had a seizure was in 2011. She is compliant with Keppra and is managed by Dr. Olsen (her neurologist) as an outpatient. Review of Systems - Constitutional Constitutional: As Per HPI - EENT Eyes: absent: As Per HPI, Blind Spots, Blurred Vision, Change in Vision, Decreased Night Vision, Diplopia, Discharge, Dry Eye, Exophthalmos, Floaters, Irritation, Itchy Eyes, Loss of Peripheral Vision, Pain, Photophobia, Requires Corrective Lenses, Sees Flashes, Spots in Vision, Tunnel Vision, Other Visual Disturbances, Loss of Vision, Other Ears: absent: As Per HPI, Decreased Hearing, Ear Discharge, Ear Pain, Tinnitus, Abnormal Hearing, Disequilibrium, Dizziness, Other Nose/Mouth/Throat: absent: As Per HPI, Epistaxis, Nasal Congestion, Nasal Discharge, Nasal Obstruction, Nasal Trauma, Nose Pain, Post Nasal Drip, Sinus Pain, Sinus Pressure, Bleeding Gums, Change in Voice, Dental Pain, Dry Mouth, Dysphagia, Halitosis, Hoarsness, Lip Swelling, Mouth Lesions, Mouth Pain, Odynophagia, Sore Throat, Throat Swelling, Tongue Swelling, Facial Pain, Neck Pain, Neck Mass, Other - Cardiovascular Cardiovascular: absent: As Per HPI, Acrocyanosis, Chest Pain, Chest Pain at Rest, Chest Pain with Activity, Claudication, Diaphoresis, Dyspnea, Dyspnea on Exertion, Edema, Irregular Heart Rhythm, Pain Radiating to Arm/Neck/Jaw, Leg Edema, Leg Ulcers, Lightheadedness, Orthopnea, Palpitations, Paroxysmal Nocturnal Dyspnea, Pedal Edema, Radiating Pain, Rapid Heart Rate, Slow Heart Rate, Syncope, Other - Respiratory Respiratory: absent: As Per HPI, Cough, Dyspnea, Hemoptysis, Dyspnea on Exertion, Wheezing, Snoring, Stridor, Pain on Inspiration, Chest Congestion, Excessive Mucous Production, Change in Mucous Color, Pain with Coughing, Other - Musculoskeletal Musculoskeletal: absent: As Per HPI, Abnormal Gait, Arthralgias, Atrophy, Back Pain, Deformity, Joint Swelling, Limited Range of Motion, Loss of Height, Muscle Cramps, Muscle Weakness, Myalgias, Neck Pain, Numbness, Radiating Pain into Limb, Stiffness, Tingling, Other - Neurological Neurological: As Per HPI - Psychiatric Psychiatric: absent: As Per HPI, Abnormal Sleep Pattern, Anhedonia, Anxiety, Auditory Hallucinations, Behavioral Changes, Change in Appetite, Change in Libido, Confusion, Depression, Difficulty Concentrating, Hallucinations, Homicidal Ideation, Hopelessness, Irritability, Memory Loss, Mood Swings, Panic Attacks, Paranoia, Suicidal Ideation, Visual Hallucinations, Tactile Hallucinations, Other - Endocrine Endocrine: absent: As Per HPI, Change in Body Appearance, Change in Libido, Cold Intolorance, Deepening of Voice, Excessive Sweating, Fatigue, Flushing, Heat Intolorance, Increase in Ring/Shoe/Hat Size, Palpitations, Polydipsia, Polyphagia, Polyuria, Other Past Patient History - Infectious Disease Hx of Infectious Diseases: None - Past Medical History & Family History Past Medical History?: Yes - Past Social History Smoking Status: Former Smoker - CARDIAC Hx Atrial Fibrillation: No Hx Hypercholesterolemia: Yes Hx Hypertension: Yes - PULMONARY Hx Asthma: Yes Hx Chronic Obstructive Pulmonary Disease (COPD): Yes - NEUROLOGICAL Hx Seizures: Yes (LAST SEIZURE 2011) - HEENT Hx HEENT Problems: Yes Hx Cataracts: Yes Hx Glaucoma: Yes Other/Comment: implanted LENS to both eyes - RENAL Hx Chronic Kidney Disease: No - ENDOCRINE/METABOLIC Hx Hypothyroidism: Yes - INTEGUMENTARY Hx Dermatological Problems: No - MUSCULOSKELETAL/RHEUMATOLOGICAL Hx Musculoskeletal Disorders: Yes Hx Herniated Disk: Yes (THORACIC AND LUMBAR) - GASTROINTESTINAL Hx Diverticulitis: Yes (Diverticulosis) Hx Gastritis: Yes - GENITOURINARY/GYNECOLOGICAL Hx Genitourinary Disorders: No - PSYCHIATRIC Hx Substance Use: No - SURGICAL HISTORY Hx Appendectomy: Yes (3 YRS. OLD) - ANESTHESIA Hx Anesthesia: Yes Hx Anesthesia Reactions: No Hx Malignant Hyperthermia: No Meds Allergies/Adverse Reactions: Allergies Allergy/AdvReac Type Severity Reaction Status Date / Time amoxicillin [From Augmentin] Allergy Verified 07/17/17 10:09 ciprofloxacin [From Cipro] Allergy Verified 07/17/17 10:09 clavulanic acid Allergy Verified 07/17/17 10:09 [From Augmentin] iodine Allergy Verified 07/17/17 10:09 levofloxacin [From Levaquin] Allergy Verified 07/17/17 10:09 metronidazole [From Flagyl] Allergy Verified 07/17/17 10:09 Sulfa (Sulfonamide Allergy Verified 07/17/17 10:09 Antibiotics) sulfamethoxazole Allergy Verified 07/17/17 10:09 [From Bactrim] theophylline Allergy Verified 07/17/17 10:09 trimethoprim [From Bactrim] Allergy Verified 07/17/17 10:09 - Medications Medications: Current Medications Albuterol/Ipratropium (Duoneb 3 Mg/0.5 Mg (3 Ml) Ud) 3 ml INH RQ4 PRN PRN Reason: Shortness of Breath Amlodipine Besylate (Norvasc) 10 mg PO DAILY [facility] Arformoterol Tartrate (Brovana) 15 mcg INH RQ12@1000,2200 [facility] Aspirin (Aspirin Chewable) 81 mg PO DAILY [facility] Last Admin: 02/16/19 09:13 Dose: 81 mg Budesonide (Pulmicort Respules) 0.5 mg INH RQ12 [facility] Gabapentin (Neurontin) 400 mg PO DAILY [facility] Last Admin: 02/16/19 10:25 Dose: 400 mg Heparin Sodium (Porcine) (Heparin) 5,000 units SC Q8 [facility] Last Admin: 02/16/19 06:05 Dose: 5,000 units Home Med (Desonide [Desonide]) 1 appl TP BID [facility] Levetiracetam (Keppra) 1,500 mg PO Q12H [facility] Last Admin: 02/16/19 09:16 Dose: 1,500 mg Levothyroxine Sodium (Synthroid) 112 mcg PO DAILY@0630 [facility] Last Admin: 02/16/19 06:05 Dose: 112 mcg Montelukast Sodium (Singulair) 10 mg PO QPM [facility] Nystatin (Nystop Topical Powder) 1 applic TOP BID [facility] Last Admin: 02/16/19 10:38 Dose: 1 applic Pantoprazole Sodium (Protonix Ec Tab) 40 mg PO DAILY [facility] Last Admin: 02/16/19 09:13 Dose: 40 mg Rosuvastatin Calcium (Crestor) 5 mg PO HS [facility] Zolpidem Tartrate (Ambien) 5 mg PO HS [facility] Last Admin: 02/16/19 00:30 Dose: 5 mg Physical Exam - Constitutional Appears: Well - Head Exam Head Exam: ATRAUMATIC, NORMAL INSPECTION, NORMOCEPHALIC - Eye Exam Eye Exam: EOMI, Normal appearance, PERRL Pupil Exam: NORMAL ACCOMODATION, PERRL - ENT Exam ENT Exam: Mucous Membranes Moist, Normal Exam - Neck Exam Neck exam: Positive for: Normal Inspection - Respiratory Exam Respiratory Exam: Clear to Auscultation Bilateral, NORMAL BREATHING PATTERN - Cardiovascular Exam Cardiovascular Exam: REGULAR RHYTHM, +S1, +S2 - GI/Abdominal Exam GI & Abdominal Exam: Normal Bowel Sounds, Soft. absent: Tenderness - Rectal Exam Rectal Exam: NORMAL INSPECTION - Back Exam Back exam: NORMAL INSPECTION - Neurological Exam Neurological exam: Alert, CN II-XII Intact, Normal Gait, Oriented x3, Reflexes Normal - Psychiatric Exam Psychiatric exam: Normal Affect, Normal Mood - Skin Skin Exam: Dry, Intact, Normal Color, Warm Results - Vital Signs Recent Vital Signs: Last Vital Signs Temp 97.9 F 02/16/19 12:18 Pulse 74 02/16/19 12:18 Resp 18 02/16/19 12:18 BP 119/75 02/16/19 12:18 Pulse Ox 98 02/16/19 12:18 - Labs Result Diagrams: 02/16/19 07:09 02/16/19 07:09 Labs: Laboratory Results - last 24 hr 02/15/19 02/15/19 02/15/19 19:15 19:32 19:32 WBC 9.7 RBC 4.68 Hgb 13.4 Hct 39.5 MCV 84.4 D MCH 28.7 MCHC 34.0 RDW 14.9 H Plt Count 386 MPV 6.9 L Neut % (Auto) 69.9 Lymph % (Auto) 15.8 L [place] % (Auto) 12.4 H Eos % (Auto) 1.1 Baso % (Auto) 0.8 Neut # (Auto) 6.8 Lymph # (Auto) 1.5 [place] # (Auto) 1.2 H Eos # (Auto) 0.1 Baso # (Auto) 0.1 PT 11.8 INR 1.1 APTT 31.6 Sodium Potassium Chloride Carbon Dioxide Anion Gap BUN Creatinine Est GFR ( Amer) Est GFR (Non-Af Amer) POC Glucose (mg/dL) 110 Random Glucose Calcium Total Bilirubin AST ALT Alkaline Phosphatase Lactate Dehydrogenase Total Creatine Kinase Troponin I NT-Pro-B Natriuret Pep Total Protein Albumin Globulin Albumin/Globulin Ratio Triglycerides Cholesterol LDL Cholesterol Direct HDL Cholesterol Lipase Thyroxine (T4) TSH 3rd Generation Urine Color Urine Clarity Urine pH Ur Specific [place] Urine Protein Urine Glucose (UA) Urine Ketones Urine Blood Urine Nitrate Urine Bilirubin Urine Urobilinogen Ur Leukocyte Esterase Urine WBC (Auto) Urine RBC (Auto) Ur Squamous Epith Cells Ur Transition Epith Cell Ur Renal Epithelial Cell Urine Bacteria Urine Opiates Screen Urine Methadone Screen Ur Barbiturates Screen Ur Phencyclidine Scrn Ur Amphetamines Screen U Benzodiazepines Scrn U Oth Cocaine Metabols U Cannabinoids Screen Influenza Typ A,B (EIA) 02/15/19 02/15/19 02/15/19 19:32 23:15 23:15 WBC RBC Hgb Hct MCV MCH MCHC RDW Plt Count MPV Neut % (Auto) Lymph % (Auto) [place] % (Auto) Eos % (Auto) Baso % (Auto) Neut # (Auto) Lymph # (Auto) [place] # (Auto) Eos # (Auto) Baso # (Auto) PT INR APTT Sodium 127 L Potassium 4.5 Chloride 93 L Carbon Dioxide 22 Anion Gap 17 BUN 25 H Creatinine 1.1 Est GFR ( Amer) 59 Est GFR (Non-Af Amer) 49 POC Glucose (mg/dL) Random Glucose 105 D Calcium 10.3 Total Bilirubin 0.9 AST 27 ALT 25 Alkaline Phosphatase 95 Lactate Dehydrogenase 523 Total Creatine Kinase 141 H Troponin I 0.0210 NT-Pro-B Natriuret Pep 87.3 Total Protein 6.7 Albumin 4.2 Globulin 2.5 Albumin/Globulin Ratio 1.7 Triglycerides Cholesterol LDL Cholesterol Direct HDL Cholesterol Lipase 138 Thyroxine (T4) TSH 3rd Generation 1.11 Urine Color Yellow Urine Clarity Hazy Urine pH 5.0 Ur Specific [place] 1.010 Urine Protein Negative Urine Glucose (UA) Normal Urine Ketones Negative Urine Blood 1+ H Urine Nitrate Negative Urine Bilirubin Negative Urine Urobilinogen Normal Ur Leukocyte Esterase 3+ H Urine WBC (Auto) 118 H Urine RBC (Auto) 4 H Ur Squamous Epith Cells 10 H Ur Transition Epith Cell 1 Ur Renal Epithelial Cell 2 Urine Bacteria Few H Urine Opiates Screen Urine Methadone Screen Ur Barbiturates Screen Ur Phencyclidine Scrn Ur Amphetamines Screen U Benzodiazepines Scrn U Oth Cocaine Metabols U Cannabinoids Screen Influenza Typ A,B (EIA) 02/16/19 02/16/19 02/16/19 01:33 07:09 07:09 WBC 7.4 RBC 4.17 Hgb 12.1 Hct 34.8 MCV 83.6 MCH 29.0 MCHC 34.6 RDW 14.7 H Plt Count 295 MPV 7.1 L Neut % (Auto) 56.6 Lymph % (Auto) 27.5 [place] % (Auto) 11.8 H Eos % (Auto) 3.2 Baso % (Auto) 0.9 Neut # (Auto) 4.2 Lymph # (Auto) 2.0 [place] # (Auto) 0.9 H Eos # (Auto) 0.2 Baso # (Auto) 0.1 PT INR APTT Sodium 130 L Potassium 3.8 Chloride 98 Carbon Dioxide 24 Anion Gap 12 BUN 19 H Creatinine 0.8 Est GFR ( Amer) > 60 Est GFR (Non-Af Amer) > 60 POC Glucose (mg/dL) Random Glucose 101 Calcium 9.8 Total Bilirubin 0.9 AST 27 ALT 27 Alkaline Phosphatase 80 Lactate Dehydrogenase Total Creatine Kinase Troponin I 0.0150 NT-Pro-B Natriuret Pep Total Protein 5.7 L Albumin 3.4 L Globulin 2.3 Albumin/Globulin Ratio 1.5 Triglycerides 105 D Cholesterol 167 LDL Cholesterol Direct 79 HDL Cholesterol 73 H Lipase Thyroxine (T4) 10.9 TSH 3rd Generation Urine Color Urine Clarity Urine pH Ur Specific [place] Urine Protein Urine Glucose (UA) Urine Ketones Urine Blood Urine Nitrate Urine Bilirubin Urine Urobilinogen Ur Leukocyte Esterase Urine WBC (Auto) Urine RBC (Auto) Ur Squamous Epith Cells Ur Transition Epith Cell Ur Renal Epithelial Cell Urine Bacteria Urine Opiates Screen Urine Methadone Screen Ur Barbiturates Screen Ur Phencyclidine Scrn Ur Amphetamines Screen U Benzodiazepines Scrn U Oth Cocaine Metabols U Cannabinoids Screen Influenza Typ A,B (EIA) 02/16/19 02/16/19 02/16/19 07:09 10:08 11:46 WBC RBC Hgb Hct MCV MCH MCHC RDW Plt Count MPV Neut % (Auto) Lymph % (Auto) [place] % (Auto) Eos % (Auto) Baso % (Auto) Neut # (Auto) Lymph # (Auto) [place] # (Auto) Eos # (Auto) Baso # (Auto) PT INR APTT Sodium Potassium Chloride Carbon Dioxide Anion Gap BUN Creatinine Est GFR ( Amer) Est GFR (Non-Af Amer) POC Glucose (mg/dL) Random Glucose Calcium Total Bilirubin AST ALT Alkaline Phosphatase Lactate Dehydrogenase Total Creatine Kinase Troponin I < 0.0120 NT-Pro-B Natriuret Pep Total Protein Albumin Globulin Albumin/Globulin Ratio Triglycerides Cholesterol LDL Cholesterol Direct HDL Cholesterol Lipase Thyroxine (T4) TSH 3rd Generation Urine Color Urine Clarity Urine pH Ur Specific [place] Urine Protein Urine Glucose (UA) Urine Ketones Urine Blood Urine Nitrate Urine Bilirubin Urine Urobilinogen Ur Leukocyte Esterase Urine WBC (Auto) Urine RBC (Auto) Ur Squamous Epith Cells Ur Transition Epith Cell Ur Renal Epithelial Cell Urine Bacteria Urine Opiates Screen Negative Urine Methadone Screen Negative Ur Barbiturates Screen Negative Ur Phencyclidine Scrn Negative Ur Amphetamines Screen Negative U Benzodiazepines Scrn Negative U Oth Cocaine Metabols Negative U Cannabinoids Screen Negative Influenza Typ A,B (EIA) Negative for flu a/b Assessment & Plan (1) Left sided numbness Assessment and Plan: Likely related to chest pain, and acute event, but unlikely to be stroke since she does not have any symptoms today. Seizure is also less likely since the patient was awake and alert the entire time. Cardiac work-up is warranted. Follow up with Dr. Olsen as an outpatient. Thank you. Status: Acute
[2019-02-16 16:27] VITALS: RESP 20
[2019-02-16] MEDS: Budesonide 0.5 mg/2 ml Inhal Susp UD INH SCH (20:44)
[2019-02-17] MEDS: Levothyroxine 112 MCG TAB PO SCH (05:38)
[2019-02-17 07:08] LABS: BASO # 0.1 K/uL (0.0-0.2); BASO % 0.9 % (0.0-2.0); EOS # 0.2 K/uL (0.0-0.7); EOS % 4.1 % (0.0-4.0); HEMOGLOBIN 12.6 g/dL (11.0-16.0); LYMPH # 1.9 K/uL (1.0-4.3); LYMPH % 32.1 % (20.0-40.0); MEAN CELL VOLUME 84.6 fL (81.0-99.0); MEAN CORPUSCULAR HEMOGLOBIN 28.1 pg (27.0-31.0); MEAN CORPUSCULAR HGB CONC 33.2 g/dL (33.0-37.0); MEAN PLATELET VOLUME 7.2 fL (7.2-11.7); MONO # 0.8 K/uL (0.0-0.8); MONO % 13.5 % (0.0-10.0); NEUT # 2.9 K/uL (1.8-7.0); NEUT % 49.4 % (50.0-75.0); RBC 4.5 Mil/uL (3.80-5.20); RED CELL DISTRIBUTION WIDTH 14.7 % (11.5-14.5); WHITE BLOOD COUNT 5.9 K/uL (4.8-10.8)
[2019-02-17 07:39] VITALS: BP 129/81; TEMP 97.8; O2SAT 96
[2019-02-17 07:52] LABS: ALB/GLOB RATIO 1.6 (1.0-2.1); ALBUMIN 3.8 g/dL (3.5-5.0); ALT/SGPT 27 U/L (9-52); AST/SGOT 28 U/L (14-36); BLOOD UREA NITROGEN 17 mg/dL (7-17); CALCIUM 9.5 mg/dl (8.6-10.4); GFR NON-AFRICAN AMERICAN > 60
--- NOTE | 2019-02-17 08:21 | CP.PCM.PN ---
Objective - Vital Signs/Intake and Output Vital Signs (last 24 hours): Temp Pulse Resp BP Pulse Ox 97.8 F 75 20 129/81 96 02/17/19 07:00 02/17/19 07:00 02/17/19 07:00 02/17/19 07:00 02/17/19 07:00 - Medications Medications: Current Medications Albuterol/Ipratropium (Duoneb 3 Mg/0.5 Mg (3 Ml) Ud) 3 ml INH RQ4 PRN PRN Reason: Shortness of Breath Amlodipine Besylate (Norvasc) 10 mg PO DAILY [facility] Arformoterol Tartrate (Brovana) 15 mcg INH RQ12@1000,2200 [facility] Aspirin (Aspirin Chewable) 81 mg PO DAILY [facility] Last Admin: 02/16/19 09:13 Dose: 81 mg Budesonide (Pulmicort Respules) 0.5 mg INH RQ12 [facility] Last Admin: 02/16/19 20:44 Dose: Not Given Gabapentin (Neurontin) 400 mg PO BID [facility] Heparin Sodium (Porcine) (Heparin) 5,000 units SC Q8 [facility] Last Admin: 02/17/19 05:44 Dose: Not Given Home Med (Desonide [Desonide]) 1 appl TP BID [facility] Levetiracetam (Keppra) 1,500 mg PO Q12H [facility] Last Admin: 02/16/19 22:45 Dose: 1,500 mg Levothyroxine Sodium (Synthroid) 112 mcg PO DAILY@0630 [facility] Last Admin: 02/17/19 05:38 Dose: 112 mcg Montelukast Sodium (Singulair) 10 mg PO QPM [facility] Last Admin: 02/16/19 17:52 Dose: 10 mg Nystatin (Nystop Topical Powder) 1 applic TOP BID [facility] Last Admin: 02/16/19 19:25 Dose: 1 applic Pantoprazole Sodium (Protonix Ec Tab) 40 mg PO DAILY [facility] Last Admin: 02/16/19 09:13 Dose: 40 mg Rosuvastatin Calcium (Crestor) 5 mg PO HS [facility] Last Admin: 02/16/19 22:45 Dose: 5 mg Zolpidem Tartrate (Ambien) 5 mg PO HS [facility] Last Admin: 02/16/19 23:32 Dose: 5 mg - Labs Labs: 02/17/19 07:01 02/17/19 07:01 PT 11.8 SECONDS (9.7-12.2) 02/15/19 19:32 INR 1.1 02/15/19 19:32 APTT 31.6 SECONDS (21-34) 02/15/19 19:32
--- NOTE | 2019-02-17 08:59 | CP.PCM.DIS ---
Provider - Provider Date of Admission: 02/15/19 21:33 Attending physician: Jordin Ruiz MD Primary care physician: Dr. Hernandez Consults: 02/16/19 07:00 Cardiology Consult Routine Comment: Consulting Provider: Johan Small Consulting Physician: Johan Small Reason for Consult: chest pain 02/16/19 09:43 Neurology Consult Routine Comment: Consulting Provider: Wally Tellez Consulting Physician: Wally Tellez Reason for Consult: weakness L>R, hx of meningioma, seizure d/o Time Spent in preparation of Discharge (in minutes): 40 Hospital Course - Lab Results Lab Results: Most Recent Lab Values WBC 5.9 K/uL (4.8-10.8) 02/17/19 07:01 RBC 4.50 Mil/uL (3.80-5.20) 02/17/19 07:01 Hgb 12.6 g/dL (11.0-16.0) 02/17/19 07:01 Hct 38.1 % (34.0-47.0) 02/17/19 07:01 MCV 84.6 fL (81.0-99.0) 02/17/19 07:01 MCH 28.1 pg (27.0-31.0) 02/17/19 07:01 MCHC 33.2 g/dL (33.0-37.0) 02/17/19 07:01 RDW 14.7 % (11.5-14.5) H 02/17/19 07:01 Plt Count 302 K/uL (130-400) 02/17/19 07:01 MPV 7.2 fL (7.2-11.7) 02/17/19 07:01 Neut % (Auto) 49.4 % (50.0-75.0) L 02/17/19 07:01 Lymph % (Auto) 32.1 % (20.0-40.0) 02/17/19 07:01 Stokes % (Auto) 13.5 % (0.0-10.0) H 02/17/19 07:01 Eos % (Auto) 4.1 % (0.0-4.0) H 02/17/19 07:01 Baso % (Auto) 0.9 % (0.0-2.0) 02/17/19 07:01 Neut # (Auto) 2.9 K/uL (1.8-7.0) 02/17/19 07:01 Lymph # (Auto) 1.9 K/uL (1.0-4.3) 02/17/19 07:01 Stokes # (Auto) 0.8 K/uL (0.0-0.8) 02/17/19 07:01 Eos # (Auto) 0.2 K/uL (0.0-0.7) 02/17/19 07:01 Baso # (Auto) 0.1 K/uL (0.0-0.2) 02/17/19 07:01 PT 11.8 SECONDS (9.7-12.2) 02/15/19 19:32 INR 1.1 02/15/19 19:32 APTT 31.6 SECONDS (21-34) 02/15/19 19:32 Sodium 132 mmol/L (132-148) 02/17/19 07:01 Potassium 3.8 mmol/L (3.6-5.2) 02/17/19 07:01 Chloride 98 mmol/L (98-107) 02/17/19 07:01 Carbon Dioxide 23 mmol/L (22-30) 02/17/19 07:01 Anion Gap 15 (10-20) 02/17/19 07:01 BUN 17 mg/dL (7-17) 02/17/19 07:01 Creatinine 0.7 mg/dL (0.7-1.2) 02/17/19 07:01 Est GFR ( Amer) > 60 02/17/19 07:01 Est GFR (Non-Af Amer) > 60 02/17/19 07:01 POC Glucose (mg/dL) 110 mg/dL (65-110) 02/15/19 19:15 Random Glucose 104 mg/dL (65-105) 02/17/19 07:01 Calcium 9.5 mg/dl (8.6-10.4) 02/17/19 07:01 Total Bilirubin 0.9 mg/dL (0.2-1.3) 02/17/19 07:01 AST 28 U/L (14-36) 02/17/19 07:01 ALT 27 U/L (9-52) 02/17/19 07:01 Alkaline Phosphatase 85 U/L (38-126) 02/17/19 07:01 Lactate Dehydrogenase 523 U/L (313-618) 02/15/19 23:15 Total Creatine Kinase 141 U/L (30-135) H 02/15/19 23:15 Troponin I < 0.0120 ng/mL (0.00-0.120) 02/16/19 07:09 NT-Pro-B Natriuret Pep 87.3 pg/mL (0-900) 02/15/19 19:32 Total Protein 6.1 g/dL (6.3-8.3) L 02/17/19 07:01 Albumin 3.8 g/dL (3.5-5.0) 02/17/19 07:01 Globulin 2.3 gm/dL (2.2-3.9) 02/17/19 07:01 Albumin/Globulin Ratio 1.6 (1.0-2.1) 02/17/19 07:01 Triglycerides 105 mg/dL (0-149) D 02/16/19 07:09 Cholesterol 167 mg/dL (0-199) 02/16/19 07:09 LDL Cholesterol Direct 79 mg/dL (0-129) 02/16/19 07:09 HDL Cholesterol 73 mg/dL (30-70) H 02/16/19 07:09 Lipase 138 U/L (23-300) 02/15/19 19:32 Thyroxine (T4) 10.9 ug/dL (5.5-11.0) 02/16/19 01:33 TSH 3rd Generation 1.11 mIU/L (0.46-4.68) 02/15/19 19:32 Urine Color Yellow (YELLOW) 02/15/19 23:15 Urine Clarity Hazy (Clear) 02/15/19 23:15 Urine pH 5.0 (5.0-8.0) 02/15/19 23:15 Ur Specific [place] 1.010 (1.003-1.030) 02/15/19 23:15 Urine Protein Negative mg/dL (NEGATIVE) 02/15/19 23:15 Urine Glucose (UA) Normal mg/dL (Normal) 02/15/19 23:15 Urine Ketones Negative mg/dL (NEGATIVE) 02/15/19 23:15 Urine Blood 1+ (NEGATIVE) H 02/15/19 23:15 Urine Nitrate Negative (NEGATIVE) 02/15/19 23:15 Urine Bilirubin Negative (NEGATIVE) 02/15/19 23:15 Urine Urobilinogen Normal mg/dL (0.2-1.0) 02/15/19 23:15 Ur Leukocyte Esterase 3+ Chloe/uL (Negative) H 02/15/19 23:15 Urine WBC (Auto) 118 /hpf (0-5) H 02/15/19 23:15 Urine RBC (Auto) 4 /hpf (0-3) H 02/15/19 23:15 Ur Squamous Epith Cells 10 /hpf (0-5) H 02/15/19 23:15 Ur Transition Epith Cell 1 /hpf (0-3) 02/15/19 23:15 Ur Renal Epithelial Cell 2 /hpf (0-3) 02/15/19 23:15 Urine Bacteria Few (<OCC) H 02/15/19 23:15 Urine Opiates Screen Negative (NEGATIVE) 02/16/19 11:46 Urine Methadone Screen Negative (NEGATIVE) 02/16/19 11:46 Ur Barbiturates Screen Negative (NEGATIVE) 02/16/19 11:46 Ur Phencyclidine Scrn Negative (NEGATIVE) 02/16/19 11:46 Ur Amphetamines Screen Negative (NEGATIVE) 02/16/19 11:46 U Benzodiazepines Scrn Negative (NEGATIVE) 02/16/19 11:46 U Oth Cocaine Metabols Negative (NEGATIVE) 02/16/19 11:46 U Cannabinoids Screen Negative (NEGATIVE) 02/16/19 11:46 Influenza Typ A,B (EIA) Negative for flu a/b (NEGATIVE) 02/16/19 10:08 - Hospital Course Hospital Course: Hospitalist Discharge Summary Patient was seen and examined at 8:45 AM Bed 563 B on 02/17/19 68 year old female (PMHx: COPD, HTN, Hypothyroidism, HLD, Meningioma, Seizure Disorder (isolated episode 2011), GERD, Hemangioma, Chronic UTI and diverticulitis) who presented on 02/15/19 with complaints of diaphoresis, left arm weakness, lightheadedness, chest pressure, myalgias while running her errands. In the ER she was found to be Hyponatremic. This was likely secondary to her HCTZ component of Avalide, which was placed on hold and she was started on a new blood pressure medication Norvasc. CT Head did not show any acute intracranial abnormality, chronic microvascular changes. Chest X Ray did not show any acute disease process. Blood pressure was low initially but then stabilized. Her presenting symptoms resolved once the Na improved. She was given instructions to discontinue her home Avalide, continue the Norvasc, and to follow up with PMD Dr. Hernandez in 7 days for remeasurement of her blood pressure and coordination of her care. Please see Assessment and Plans below for details and the Medical Record for complete details of this patient's hospital stay. Please see below for discharge instructions. Currently without complaints upon FULL ROS All of her complaints upon presentation have resolved Exam: General: Patient was asleep but easily arousable HEENT: NCA, EOMI, PERRLA, NO cervical/supraclavicular/submandibular lymphadenopathy, NO thyromegaly, NO Pharyngeal Erythema/Exudate, Mouth and Lips are dry Cardio: NS1 and NS2, NO M/R/G Resp: CTA B/L, NO R/R/W GI: BSx4, Soft, ND, NO HSM, NT to palpation, NO guarding/rebound tenderness Ext: NO edema noted in the bilateral UE and LE, Pulses are strong and equal, Capillary Refill is 2 seconds, Normal coloration and temperature Neuro: CN II through XII are grossly intact Assessment & Plan Chest pressure Assessment and Plan: EKG: NSR @93 Troponin x3 is negative Continue home ASA 81mg Cardiology consult, Dr. Small No evidence of ACS Echocardiogram: left ventricle is normal in size, EF is 60-65%, Grade I-abnormal relaxation pattern, left atrium is normal, trace tricuspid regurgitation, RV Systolic pressure is estimated at 25 mmHg, NO pulmonary HTN, aortic root is normal in size, IVC is normal in size and collapses > 50% with inspiration, there is NO pericardial effusion Status: Acute Weakness, diaphoresis, myalgias, visual changes Assessment and Plan: Likely all secondary to hyponatremia CT head negative for acute intracranial abnormality TSH, T4 normal; see below CPK is 141, LDH is normal at 523 Neuro checks Neuro consult, Dr. Rosalinda Cruz precautions UDS negative Status: Acute Hyponatremia Assessment and Plan: Pt euvolemic on clinical exam, endorses drinking 5+ 16 ounce water bottles daily Pt's home HCTZ likely contributed, will hold Possible component of SIADH from Keppra use as well F/u stat keppra level Na+ 127 on admission and 132 at the time of discharge Continue to monitor Status: Acute Hypotension Assessment and Plan: BP currently stable and WNL Orthostatic BP: Lay 138/79 Sit 131/82 Stand 126/86 Fall precautions Status: Resolved Hx Candidal infection to bilateral inguinal/groin area Assessment and Plan: Very little area of erythema bilaterally on exam 02/17/19 Keep area dry Nystatin powder BID Discontinued home topical Desonide Status: Chronic Hx COPD (chronic obstructive pulmonary disease) Assessment and Plan: CXR shows no active disease Rapid flu negative Brovana Q12 and Pulmicort Q12, to replace home Advair diskus as per inpatient pharmacy recs Continue home Singulair 10 mg PO QHS Duonebs q4 prn O2 via NC prn Status: Chronic Hx Hypertension Assessment and Plan: Hold home HCTZ 12.5 PO 1x/day due to hyponatremia Discontinue Cozaar 100mg PO 1x/day Norvasc 10 mg PO 1x/day Holding parameters 2/2 reports of hypotension Status: Chronic Hx Hypothyroidism Assessment and Plan: TSH 1.1, WNL Continue home Synthroid 112 mcg PO 1x/day Status: Chronic Hx HLD (hyperlipidemia) Assessment and Plan: Lipid panel shows TG/CHL/LDL/HDL is 105/167/79/73 Continue Crestor 5mg PO HS per pharmacy (equivalent of home Pravastatin dose) Status: Chronic Hx Seizure disorder Assessment and Plan: Private Neurologist is Dr. Olsen, who requests on-call neurologist to follow up with pt Isolated seizure 2011, likely 2/2 meningioma as per pt Continue home meds, Keppra 1500mg PO q12, Gabapentin 400 mg PO QD Seizure precautions Neuro checks Neuro consult, Dr. 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 lower back pain Assessment and Plan: Continue home medication Gabapentin Status: Chronic Hx Chronic UTI Assessment and Plan: Patient is currently asymptomatic UA shows LE 3+, QBC is 118, Squamous cell is 10+, few bacteria, 1+ blood, 4 RB No treatment at this time Status: Chronic Prophylactic measure Assessment and Plan: GI: Protonix 40 mg PO 1x/day VTE: Heparin 5000 SC Q8H, SCDs Status: Acute Confirmed with patient that she has all of her medications at home Instructed her to STOP her home blood pressure medications Explained that she would be provided with prescriptions for Norvasc which she is to start tomorrow with breakfast at 8:30 AM and with Nystatin Powder which she is to apply 2x/day to the bilateral groin area Instructed her to make sure to follow up with her PMD Dr. Hernandez in 7 days for recheck of her blood pressure and coordination of her health care. The following instructions were explained to the patient and copy will need to be provided to her upon discharge: 1). Schedule follow up with your PMD Dr. Hernandez to take place in 7 days for a recheck of your blood pressure and for coordination of your health care. 2). STOP your home blood pressure medication as this is likely causing a drop in your Sodium level that caused the symptoms you were experiencing that brought you into the hospital. 3). STOP the cream you are applying to your groin area. 4). You stated that you had enough of all of your other home medications. Please continue them as you have been instructed by hour outpatient physicians. 5). Please have the following prescriptions filled at your pharmacy on your way home from the hospital and use as directed: Norvasc 10 mg, 1 tablet by mouth once a day in the morning with your breakfast Nystatin Powder 100,000 units/gram, apply the powder to both sides of your groin twice a day at 8:30 AM and 8:30 PM for 7 days 6). Schedule appointment with your Neurologist Dr. Olsen to take place in 7 to 10 days for your history of seizures. 7). Please take care and be well. Be happy, be good to yourself, spend time with your loved ones, and watch a few good movies. Jae Hernandez D.O. Discharge Exam - Head Exam Head Exam: ATRAUMATIC, NORMAL INSPECTION, NORMOCEPHALIC Discharge Plan - Discharge Medications Prescriptions: amLODIPine [Norvasc] 10 mg PO DAILY #30 tab Nystatin [Nystop Topical Powder] 1 applic TOP BID #1 bottle - Follow Up Plan Condition: FAIR Disposition: HOME/ ROUTINE Instructions: Chest Pain (DC), Hyponatremia, Hyponatremia (DC) Additional Instructions: Norvasc and Nystatin Powder prescriptions have been placed inside patient chart. The following instructions were explained to the patient and copy will need to be provided to her upon discharge: 1). Schedule follow up with your PMD Dr. Hernandez to take place in 7 days for a recheck of your blood pressure and for coordination of your health care. 2). STOP your home blood pressure medication as this is likely causing a drop in your Sodium level that caused the symptoms you were experiencing that brought you into the hospital. 3). STOP the cream you are applying to your groin area. 4). You stated that you had enough of all of your other home medications. Please continue them as you have been instructed by hour outpatient physicians. 5). Please have the following prescriptions filled at your pharmacy on your way home from the hospital and use as directed: Norvasc 10 mg, 1 tablet by mouth once a day in the morning with your breakfast Nystatin Powder 100,000 units/gram, apply the powder to both sides of your groin twice a day at 8:30 AM and 8:30 PM for 7 days 6). Schedule appointment with your Neurologist Dr. Olsen to take place in 7 to 10 days for your history of seizures. 7). Please take care and be well. Be happy, be good to yourself, spend time with your loved ones, and watch a few good movies. Referrals: Johan Small MD [Staff Provider] - Wally Tellez MD [Staff Provider] - Jae Hernandez MD [Staff Provider] -
[2019-02-17] MEDS: Budesonide 0.5 mg/2 ml Inhal Susp UD INH SCH (09:16)
[2019-02-17] MEDS: Pantoprazole 40 mg EC Tab PO SCH (09:32)
[2019-02-17 11:20] VITALS: PULSE 72
--- NOTE | 2019-02-17 13:54 | CARD ---
APPROVED REPORT Date of service: 02/16/2019 EXAM: Two-dimensional and M-mode echocardiogram with Doppler and color Doppler. INDICATION Dizziness and Vertigo COPD Asthma RISK FACTORS Hypertension 2D DIMENSIONS IVSd1.0 (0.7-1.1cm)Aortic Root (2D)2.9 (2.0-3.7cm) LVDd5.1 (3.9-5.9cm)PWd0.9 (0.7-1.1cm) LA Cbswwd79 (18-58mL)LVDs3.2 (2.5-4.0cm) FS (%) 37.3 %LVEF (%)67.0 (>50%) LVEF (Peterson's)60 %IVC0.00 cm M-Mode DIMENSIONS Left Atrium (MM)3.49 (2.5-4.0cm)IVSd0.67 (0.7-1.1cm) Aortic Root3.13 (2.2-3.7cm)LVDd5.31 (4.0-5.6cm) Aortic Cusp Exc.1.82 (1.5-2.0cm)PWd0.70 (0.7-1.1cm) FS (%) 36 %LVDs3.40 (2.0-3.8cm) LVEF (%)65 (>50%) Mitral Valve MV E Xatlumqm88.8cm/sMV A Ycdhtqvk53.6cm/sE/A ratio0.8 TDI Lateral E' Peak V5.77cm/sMedial E' Peak V3.90cm/sE/Lateral E'10.7 E/Medial E'15.8 Tricuspid Valve TR Peak Qpryluua295ni/sTR Peak Gr.[id number] LEFT VENTRICLE The left ventricle is normal size. There is normal left ventricular wall thickness. The Ejection Fraction is 60-65%. There is normal LV segmental wall motion. Transmitral Doppler flow pattern is Grade I-abnormal relaxation pattern. RIGHT VENTRICLE The right ventricle is normal size. The right ventricular systolic function is normal. ATRIA The left atrium size is normal. The right atrium size is normal. The interatrial septum is intact with no evidence for an atrial septal defect. AORTIC VALVE The aortic valve is normal in structure. No aortic regurgitation is present. MITRAL VALVE The mitral valve is normal in structure. Mitral regurgitation is trace. TRICUSPID VALVE The tricuspid valve is normal in structure. There is trace tricuspid regurgitation. Right ventricular systolic pressure is estimated at 25 mmHg. There is no pulmonary hypertension. PULMONIC VALVE The pulmonary valve is normal in structure. GREAT VESSELS The aortic root is normal in size. The IVC is normal in size and collapses >50% with inspiration. PERICARDIAL EFFUSION There is no pericardial effusion. <Conclusion> The left ventricle is normal size. The Ejection Fraction is 60-65%. Transmitral Doppler flow pattern is Grade I-abnormal relaxation pattern. The left atrium size is normal. There is trace tricuspid regurgitation. Right ventricular systolic pressure is estimated at 25 mmHg. There is no pulmonary hypertension. The aortic root is normal in size. The IVC is normal in size and collapses >50% with inspiration. There is no pericardial effusion.
--- NOTE | 2019-02-17 14:16 | CARD ---
APPROVED REPORT Date of service: 02/15/2019 EKG Measurement Heart [id number] <Conclusion> Normal sinus rhythm Normal ECG
[2019-02-17] MEDS ORDERED: Hydrocortisone 1% Cream (30 GM) TOP SCH (18:00)
== END 2019-02-17 14:00 | disposition home or self-care (01) ==
LOC: C.ER 18:40 → C.9E 21:33 → C.5S 22:30
PROVIDERS: ADMIT Emergency Medicine; ATTEND Emergency Medicine
DX: R07.89 Other chest pain (principal); R53.1 Weakness; E87.1 Hypo-osmolality and hyponatremia; M79.10 Myalgia, unspecified site; I95.9 Hypotension, unspecified; J44.9 Chronic obstructive pulmonary disease, unspecified; G40.909 Epilepsy, unspecified, not intractable, without status epilepticus; E03.9 Hypothyroidism, unspecified; E78.5 Hyperlipidemia, unspecified; I10 Essential (primary) hypertension; G62.9 Polyneuropathy, unspecified; Z88.0 Allergy status to penicillin; Z88.1 Allergy status to other antibiotic agents; Z88.2 Allergy status to sulfonamides; Z88.8 Allergy status to other drugs, medicaments and biological substances; Z90.49 Acquired absence of other specified parts of digestive tract; E78.00 Pure hypercholesterolemia, unspecified; Z87.891 Personal history of nicotine dependence; Z90.710 Acquired absence of both cervix and uterus; K21.9 Gastro-esophageal reflux disease without esophagitis; Z87.440 Personal history of urinary (tract) infections; Z86.011 Personal history of benign neoplasm of the brain; Z79.82 Long term (current) use of aspirin; Z79.899 Other long term (current) drug therapy
CPT/HCPCS: 36415; 70450; 71045; 80053; 80061; 80177; 81001; 82550; 82948; 83615; 83690; 83880; 84436; 84443; 84484; 85025; 85610; 85730; 87086; 87804; 93005; 93306; 96372; 99285; G0378; G0480; J1644; J7030